=== PATIENT | male | born 1955 | race Caucasian/White ===

== ENCOUNTER 2018-10-30 09:43 | Day surgery (SDC) | payer MEDICARE, MEDICAID ==
[~2018-10-30 09:43] MED LIST: Acetaminophen TAB* 325 MG PO PRN; Buffered Lidocaine 1% SYRIN* 1 ML/SYRINGE INTRADERM ONE; Cyclopentolate 1% OPTH.SOL* 2 ML BTL ONE; Ketorolac 0.5% OPHTH (NF) 0.5 % 5 ML BTL ONE; Lidocaine 1%* 5 ML VIAL ONE; Neomycin/Polymy/Dex OPHTH.OIN* 3.5 GM ONE; Phenylephrine 2.5% OPTH.SOL* 2 ML BTL ONE; Tetracaine 0.5% OPTH.SOL 4 ML* 1 DROP BTL ONE; Tropicamide 1% OPTH.SOL* BTL ONE
[2018-10-30] MEDS ORDERED: Levalbuterol 1.25MG/0.5ML NEB INH ONE (10:34)
[2018-10-30] MEDS ORDERED: Levalbuterol 1.25MG/0.5ML NEB ONE (10:35)
[2018-10-30] MEDS ORDERED: fentaNYL* 50 MCG/ML 2 ML VIAL (100 MCG VIAL) ONE (11:06)
[2018-10-30] MEDS ORDERED: Midazolam* 1 MG/ML 2 ML VIAL (2 MG) ONE (11:06)
[2018-10-30 12:02] VITALS: BP 129/55
--- NOTE | 2018-10-30 20:14 | OP ---
DATE OF OPERATION: 10/30/18 [facility] DATE OF : 59 SURGEON: Dr. Tavo Silva. SKILLS AUDITOR: None. ANESTHESIA: Topical with intravenous sedation. PRE-OP DIAGNOSIS: Cataract, right eye. POST-OP DIAGNOSIS: Cataract, right eye. OPERATIVE PROCEDURE: Phacoemulsification and cataract extraction with posterior chamber intraocular lens implant, right eye. COMPLICATIONS: None. BLOOD LOSS: None. DESCRIPTION OF PROCEDURE: The patient was brought to the operating room and received a small amount of intravenous sedation. A drop of Tetracaine was placed in his right eye. He was prepped and draped in the usual sterile fashion for ophthalmic surgery and attention was directed to the right eye where a speculum was placed. A paracentesis was created at the 11 o'clock position and 0.1 cc of 1 percent preservative-free Lidocaine was injected into the anterior chamber followed by DisCoVisc. The eye was digitally stabilized while a 2.75 mm keratome was used to create a triplanar clear corneal incision at the 9 o'clock position. A continuous curvilinear capsulorrhexis was created with a cystotome and Utrata forceps. BSS on a cannula was used to hydrodissect the lens from the capsule. Phacoemulsification was performed in a divide-and- conquer technique to create four fragments which were removed. Residual cortical material was removed with irrigation and aspiration. DisCoVisc was used to inflate the capsular bag and an AU00T0 19.0 diopter lens was folded and inserted into the capsular bag. DisCoVisc was removed using irrigation and aspiration. BSS on a cannula was used to hydrate the corneal stroma and seal the wound. At the end of the case the pupil was round and the lens was centered. The eye was of normal pressure and the wound was water tight. The speculum was removed and topical Maxitrol ointment was placed on the surface of the eye. The eye was closed, patched and shielded and the patient was sent to the recovery room in stable condition with post operative instructions and follow-up appointment given. [id number] #: [id number] MTDD
== END 2018-10-30 12:07 | disposition home or self-care (01) ==
LOC: OREAST 09:43
PROVIDERS: ATTEND Ophthalmology
DX: H25.041 Posterior subcapsular polar age-related cataract, right eye (principal); I10 Essential (primary) hypertension; J44.9 Chronic obstructive pulmonary disease, unspecified; E11.9 Type 2 diabetes mellitus without complications; Z79.84 Long term (current) use of oral hypoglycemic drugs; Z72.0 Tobacco use; F31.9 Bipolar disorder, unspecified; Z88.0 Allergy status to penicillin; Z85.89 Personal history of malignant neoplasm of other organs and systems
CPT/HCPCS: A9270-GY; J2250; J3010; V2632

== ENCOUNTER 2018-11-06 07:20 | Day surgery (SDC) | payer MEDICARE, MEDICAID ==
[~2018-11-06 07:20] MED LIST changes: -Cyclopentolate 1% OPTH.SOL* 2 ML BTL ONE; -Ketorolac 0.5% OPHTH (NF) 0.5 % 5 ML BTL ONE; -Lidocaine 1%* 5 ML VIAL ONE; -Neomycin/Polymy/Dex OPHTH.OIN* 3.5 GM ONE; -Phenylephrine 2.5% OPTH.SOL* 2 ML BTL ONE; -Tetracaine 0.5% OPTH.SOL 4 ML* 1 DROP BTL ONE; -Tropicamide 1% OPTH.SOL* BTL ONE
[2018-11-06] MEDS ORDERED: Midazolam* 1 MG/ML 2 ML VIAL (2 MG) ONE (08:17)
[2018-11-06 09:12] VITALS: BP 160/78
--- NOTE | 2018-11-06 10:39 | OP ---
DATE OF OPERATION/DATE OF DICTATION: 11/06/2017 - [facility] DATE OF : 1955. SURGEON: Dr. Tavo Silva. COMPOSITION WEATHERBOARD APPLIER: None. ANESTHESIA: Topical with intravenous sedation. PRE-OP DIAGNOSIS: Cataract, left eye. POST-OP DIAGNOSIS: Cataract, left eye. OPERATIVE PROCEDURE: Phacoemulsification and cataract extraction with posterior chamber intraocular lens implant, left eye. COMPLICATIONS: None. BLOOD LOSS: None. DESCRIPTION OF PROCEDURE: The patient was brought to the operating room and received a small amount of intravenous sedation. A drop of Tetracaine was placed in his left eye. He was prepped and draped in the usual sterile fashion for ophthalmic surgery and attention was directed to the left eye where a speculum was placed. A paracentesis was created at the 5 o'clock position and 0.1 cc of 1 percent preservative-free Lidocaine was injected into the anterior chamber followed by DisCoVisc. The eye was digitally stabilized while a 2.75 mm keratome was used to create a triplanar clear corneal incision at the 3 o' clock position. A continuous curvilinear capsulorrhexis was created with a cystotome and Utrata forceps. BSS on a cannula was used to hydrodissect the lens from the capsule. Phacoemulsification was performed in a divide-and- conquer technique to create four fragments which were removed. Residual cortical material was removed with irrigation and aspiration. DisCoVisc was used to inflate the capsular bag and an AUOOTO 19.0 diopter lens was folded and inserted into the capsular bag. DisCoVisc was removed using irrigation and aspiration. BSS on a cannula was used to hydrate the corneal stroma and seal the wound. At the end of the case the pupil was round and the lens was centered. The eye was of normal pressure and the wound was water tight. The speculum was removed and topical Maxitrol ointment was placed on the surface of the eye. The eye was closed, patched and shielded and the patient was sent to the recovery room in stable condition with post operative instructions and follow-up appointment given. [id number] #: [id number] MTDD
[2018-11-06] MEDS ORDERED: Phenylephr/Ketorolac 1%/0.3% OPH DROP BTL ONE (15:26)
[2018-11-06] MEDS ORDERED: Ketorolac 0.5% OPHTH (NF) 0.5 % 5 ML BTL ONE (15:26)
[2018-11-06] MEDS ORDERED: Neomycin/Polymy/Dex OPHTH.OIN* 3.5 GM ONE (15:26)
[2018-11-06] MEDS ORDERED: Cyclopentolate 1% OPTH.SOL* 2 ML BTL ONE (15:26)
[2018-11-06] MEDS ORDERED: Tetracaine 0.5% OPTH.SOL 4 ML* 1 DROP BTL ONE (15:26)
[2018-11-06] MEDS ORDERED: Lidocaine 1%* 5 ML VIAL ONE (15:26)
[2018-11-06] MEDS ORDERED: Phenylephrine 2.5% OPTH.SOL* 2 ML BTL ONE (15:26)
[2018-11-06] MEDS ORDERED: Tropicamide 1% OPTH.SOL* BTL ONE (15:26)
== END 2018-11-06 09:17 | disposition home or self-care (01) ==
LOC: OREAST 07:20
PROVIDERS: ATTEND Ophthalmology
DX: H25.042 Posterior subcapsular polar age-related cataract, left eye (principal); E11.9 Type 2 diabetes mellitus without complications; Z79.84 Long term (current) use of oral hypoglycemic drugs; E78.00 Pure hypercholesterolemia, unspecified; I12.9 Hypertensive chronic kidney disease with stage 1 through stage 4 chronic kidney disease, or unspecified chronic kidney disease; F31.89 Other bipolar disorder; N18.9 Chronic kidney disease, unspecified
CPT/HCPCS: A9270-GY; C9447; J2250; V2632

== ENCOUNTER 2019-03-25 15:57 | Emergency (ER) | payer MEDICARE, MEDICAID ==
[2019-03-25 16:24] VITALS: BP 134/82
--- NOTE | 2019-03-25 16:26 | UC ---
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 Negative: Nausea, Vomiting, Numbness, Thirst, Diaphoresis, Weakness, Pallor, Shivering, Difficulty Breathing, Fever, Chills, Chest Pain, Hoarseness, Throat Tightening, Rash, Abdominal Pain, Lightheadedness, Syncope, Bruising, Red Streaks, Joint Swelling - Allergy/Home Medications Allergies/Adverse Reactions: Allergies Allergy/AdvReac Type Severity Reaction Status Date / Time nut - unspecified Allergy Severe Anaphylatic Verified 03/25/19 16:24 Shock lithium Allergy Intermediate Kidney Verified 03/25/19 16:24 Scarring Penicillins Allergy Hives Verified 03/25/19 16:24 Home Medications: Home Medications Umeclidinium [place] [Incruse Ellipta] 62.5 mcg IN DAILY 03/25/19 [History Confirmed 03/25/19] PMH/Surg Hx/FS Hx/Imm Hx Previously Healthy: Yes Respiratory History: COPD, Asthma, Bronchitis, Pneumonia Cancer History: Other Other Cancer History: SCC ;left ear - Surgical History Surgical History: Yes Surgery Procedure, Year, and Place: 02/16 - cancerous skin lesion. skin graft leg. cataracts. wisdom teeth - Family History Known Family History: Positive: Hypertension, Diabetes - Social History Alcohol Use: None Substance Use Type: None Smoking Status (MU): Heavy Every Day Tobacco Smoker Type: Cigarettes Amount Used/How Often: 1/2 - 1 ppd for 40 yrs Have You Smoked in the Last Year: Yes Review of Systems All Other Systems Reviewed And Are Negative: Yes Constitutional: Positive: Negative Skin: Positive: Negative Eyes: Positive: Negative ENT: Positive: Negative Respiratory: Positive: Cough Cardiovascular: Positive: Negative Gastrointestinal: Positive: Negative Genitourinary: Positive: Negative Motor: Positive: Negative Neurovascular: Positive: Negative Musculoskeletal: Positive: Negative Neurological: Positive: Negative Psychological: Positive: Negative Physical Exam Triage Information Reviewed: Yes Appearance: Well-Appearing, No Pain Distress, Well-Nourished Vital Signs: Initial Vital Signs Temp 97.8 F 03/25/19 16:13 Pulse 67 03/25/19 16:13 Resp 20 03/25/19 16:13 BP 134/82 03/25/19 16:13 Pulse Ox 90 03/25/19 16:13 Vital Signs Reviewed: Yes Eyes: Positive: Conjunctiva Clear ENT: Positive: Other - Left pinna almost completely absent, oozing /flakey skin surrounding ear/some crusting/post radiation changes. Negative: Hearing grossly normal, Nasal congestion, Nasal drainage, Trismus, Muffled voice, Hoarse voice Dental: Positive: Gross Decay/Caries @ Neck: Positive: Supple Respiratory: Positive: No respiratory distress, No accessory muscle use, Wheezing Cardiovascular: Positive: RRR Musculoskeletal: Positive: No Edema Neurological: Positive: Alert Skin Exam: Other - post radiation changs around left ear, see ABOVE Course/Dx - Course Course Of Treatment: Has derm appt next month concern this may be recurrance SCC - Diagnoses Provider Diagnosis: Impetigo, Bronchospasm, Smoker Discharge - Sign-Out/Discharge Documenting (check all that apply): Patient Departure All imaging exams completed and their final reports reviewed: No Studies - Discharge Plan Condition: Stable Disposition: HOME Prescriptions: Mupirocin 2% OINT* [Bactroban 2 % Oint*] 1 applic TOPICAL TID #1 tube Patient Education Materials: Bronchospasm (ED), How to Use a Metered-Dose Inhaler and a Spacer (ED) Referrals: Ramírez Callaway DO [Primary Care Provider] - 1 Week Additional Instructions: see service electrician as planned - Billing Disposition and Condition Condition: STABLE Disposition: Home
[2019-03-25] MEDS ORDERED: Albuterol HFA INHALER* 8 gm MDI INH ONE (16:38)
[2019-03-25] MEDS ORDERED: Ipratropium 0.5MG/2.5ML NEB* 0.5 MG/2.5 ML NEB.SOLN INH ONE (16:58)
[2019-03-25] MEDS ORDERED: Albuterol 2.5 MG/3 ML NEB.SOL* (0.083%) INH ONE (16:58)
--- NOTE | 2019-03-25 22:04 | UC ---
- Progress Note Progress Note: notify pt MRSA start doxy tomorrow take with food Course/Dx - Diagnoses Provider Diagnoses: Impetigo, Bronchospasm, Smoker Discharge - Sign-Out/Discharge Documenting (check all that apply): Post-Discharge Follow Up All imaging exams completed and their final reports reviewed: No Studies - Discharge Plan Condition: Stable Disposition: HOME Prescriptions: DOXYcycline CAP(*) [DOXYcycline 100MG CAP(*)] 100 mg PO BID #20 cap Mupirocin 2% OINT* [Bactroban 2 % Oint*] 1 applic TOPICAL TID #1 tube Patient Education Materials: Bronchospasm (ED), How to Use a Metered-Dose Inhaler and a Spacer (ED) Referrals: Ramírez Callaway DO [Primary Care Provider] - 1 Week Additional Instructions: see director of exhibits as planned - Billing Disposition and Condition Condition: STABLE Disposition: Home
--- NOTE | 2019-03-28 07:11 | UC ---
- Progress Note Progress Note: Culture of ear swab grew back MRSA. The mupiricin that was prescribed to you - topical ointment should treat the infection. If the infection is not improving despite using mupiricin ie drainage more redness and/or swelling and pain, recommend follow up with your PCP or return to urgent care. Course/Dx - Diagnoses Provider Diagnoses: Impetigo, Bronchospasm, Smoker Discharge - Sign-Out/Discharge Documenting (check all that apply): Post-Discharge Follow Up All imaging exams completed and their final reports reviewed: No Studies - Discharge Plan Condition: Stable Disposition: HOME Prescriptions: DOXYcycline CAP(*) [DOXYcycline 100MG CAP(*)] 100 mg PO BID #20 cap Mupirocin 2% OINT* [Bactroban 2 % Oint*] 1 applic TOPICAL TID #1 tube Patient Education Materials: Bronchospasm (ED), How to Use a Metered-Dose Inhaler and a Spacer (ED) Referrals: Ramírez Callaway DO [Primary Care Provider] - 1 Week Additional Instructions: see loom fixer apprentice as planned - Billing Disposition and Condition Condition: STABLE Disposition: Home
== END 2019-03-25 17:18 | disposition home or self-care (01) ==
LOC: UCEAST 15:57
DX: L01.00 Impetigo, unspecified (principal); J98.01 Acute bronchospasm; F17.210 Nicotine dependence, cigarettes, uncomplicated; J44.9 Chronic obstructive pulmonary disease, unspecified
CPT/HCPCS: 87070; 87205; 87640; 87641; 99213; A9270-GY; G0463

== ENCOUNTER 2019-06-03 12:59 | Inpatient (IN) | payer MEDICARE, MEDICAID ==
[2019-06-03] MEDS ORDERED: Albuterol/Ipratropium NEB.SOL* Albuterol 2.5 MG/Ipratropium 0.5 MG 3 ML INH ONE (13:09)
[2019-06-03] MEDS ORDERED: methylPREDNISolone 125 MG* 2 ML VIAL IV ONE (13:10)
--- NOTE | 2019-06-03 13:12 | ED ---
Shortness of Breath - HPI Summary HPI Summary: This pt is a 64 y/o male w hx COPD and bipolar d/o presenting to [facility] via EMS from [facility] for SOB. Pt has hx of COPD, asthma, bipolar disorder, HTN, DM. EMS reports initial SPO2 of 60% but pt did not have difficulty speaking between breaths. Per EMS pt with crackles and wheezes in upper lobes. Pt reports he has a productive cough sometimes with yellow sputum. Denies body aches or pain anywhere else. Denies CP. 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 Pt refused IV en route per EMS. POC glucose per EMS is 116 but per pt his normal is around 250s. Pt has prescribed inhalers. Pt is a heavy tobacco smoker, he notes he smokes between 1 to 2 PPD. - History of Current Complaint Hx Obtained From: Patient, EMS Onset/Duration: Lasting Hours, Still Present Current Severity: Moderate Dyspnea At: Rest Aggravating Factors: Nothing Alleviating Factors: Nothing Associated Signs & Symptoms: Cough (Productive), Wheezing - Allergy/Home Medications Allergies/Adverse Reactions: Allergies Allergy/AdvReac Type Severity Reaction Status Date / Time nut - unspecified Allergy Severe Anaphylatic Verified 06/03/19 13:19 Shock lithium Allergy Intermediate Kidney Verified 06/03/19 13:19 Scarring Penicillins Allergy Hives Verified 06/03/19 13:19 PMH/Surg Hx/FS Hx/Imm Hx Endocrine/Hematology History: Reports: Hx Diabetes - on oral medication Denies: Hx Thyroid Disease Cardiovascular History: Reports: Hx Hypertension Denies: Other Cardiovascular Problems/Disorders Respiratory History: Reports: Hx Asthma, Hx Chronic Obstructive Pulmonary Disease (COPD), Other Respiratory Problems/Disorders - Heavy smoker-1 ppd GI History: Denies: Hx Ulcer, Other GI Disorders History: Reports: Other Problems/Disorders - Frequent urination Musculoskeletal History: Denies: Other Musculoskeletal History Sensory History: Reports: Hx Cataracts - Bilateral Denies: Hx Contacts or Glasses, Hx Hearing Aid Opthamlomology History: Reports: Hx Cataracts - Bilateral Denies: Hx Contacts or Glasses Neurological History: Reports: Other Neuro Impairments/Disorders - Schizoaffective disorder Psychiatric History: Reports: Hx Anxiety, Hx Depression, Hx Bipolar Disorder - Cancer History Cancer Type, Location and Year: left ear - amputation - Surgical History Surgical History: Yes Surgery Procedure, Year, and Place: 02/16 - cancerous skin lesion. skin graft leg. cataracts. wisdom teeth Hx Anesthesia Reactions: No Infectious Disease History: Denies: Hx Hepatitis, Hx Human Immunodeficiency Virus (HIV) - Family History Known Family History: Positive: Hypertension, Diabetes - Social History Alcohol Use: None Substance Use Type: Reports: None Smoking Status (MU): Heavy Every Day Tobacco Smoker Type: Cigarettes Amount Used/How Often: 1/2 - 1 ppd for 40 yrs Have You Smoked in the Last Year: Yes Review of Systems Negative: Fever, Chills Positive: Shortness Of Breath, Cough Negative: Myalgia All Other Systems Reviewed And Are Negative: Yes Physical Exam - Summary Physical Exam Summary: Constitutional: Well-developed, Well-nourished, Alert. (-) Distressed Skin: Warm, Dry HENT: Normocephalic; Atraumatic. Posttraumatic deformity of the left auricle. Eyes: Conjunctiva normal Neck: Musculoskeletal ROM normal neck. (-) JVD, (-) Stridor Cardio: Rhythm regular, rate normal, Heart sounds normal; Intact distal pulses; Radial pulses are 2+ and symmetric. (-) Murmur Pulmonary/Chest wall: Increased work of breathing. Bilateral diffuse expiratory wheezing. Decreased air movement bilaterally. Abd: Soft, (-) tenderness, (-) Distension, (-) Guarding, (-) Rebound Musculoskeletal: (-) Edema Lymph: (-) Cervical adenopathy Neuro: Alert, Oriented x3 Psych: Mood and affect Normal Triage Information Reviewed: Yes Vital Signs Reviewed: Yes Diagnostics - Laboratory Result Diagrams: 06/03/19 13:20 06/03/19 13:12 Lab Statement: Any lab studies that have been ordered have been reviewed, and results considered in the medical decision making process. - Radiology Chest XR Radiology Interpretation Completed By: Radiologist Summary of Radiographic Findings: IMPRESSION: Interstitial infiltrates bilaterally worse on the right than on the left. This was noted on prior exam of April 16, 2019. Chronic pleural changes in the right hemithorax is noted. Increased right basilar density is noted. Dr. Guerrero has reviewed this report. - EKG 13:17 Cardiac Rate: NL - at 80 bpm EKG Rhythm: Sinus Rhythm EKG Comparison: Other - no prior for comparison Summary of EKG Findings: T wave inversion in aVL. Re-Evaluation - Re-Evaluation First Eval Comment: Patient accidentally dislodged IV. Patient does not want second IV placed, will give PO steroids Course/Dx - Course Course Of Treatment: 64-year-old male with a history of COPD presents with shortness of breath and cough. Shortness of breath ddx: Most likely COPD vs PNA. Also consider: COPD exacerbation/asthma - suspect COPD exacerbation, will give steroids, neb, reassess. PNA - inc sputum, leukocytosis, inc RLL infiltrate. treat w azithro and ceftriaxone. PTX - breath sounds equal, no risk factors for PTX, CXR w/o e/o PTX. ACS - no CP, no EKG changes. Trop elevated likely 2/2 hypoxia Low suspicion. CHF - no h/o CHF, no GOODMAN or orthopnea, no BLE edema, CXR w/o pulmonary edema. PE - no risk factors for PE, no unilateral leg swelling - Diagnoses Provider Diagnoses: COPD exacerbation, Pneumonia - Physician Notifications Discussed Care of Patient With: Sara Hanks - hospitalist Time Discussed With Above Provider: 14:23 Instructed by Provider To: Admit As Inpatient Discharge ED - Sign-Out/Discharge Documenting (check all that apply): Patient Departure - Admit to [facility] Patient Received Moderate/Deep Sedation with Procedure: No - Discharge Plan Condition: Stable Disposition: ADMITTED TO [facility] Referrals: Ramírez Callaway DO [Primary Care Provider] - - Billing Disposition and Condition Condition: STABLE Disposition: Admitted to [facility] - Attestation Statements Document Initiated by Emmanuel: Yes Documenting Scribe: Shawna To Provider For Whom Scribe is Documenting (Include Credential): Andres Guerrero MD Scribe Attestation: Shawna Gerardo, scribed for Andres Guerrero MD on 06/03/19 at 1522. Scribe Documentation Reviewed: Yes Provider Attestation: The documentation as recorded by the Shawna ortega accurately reflects the service I personally performed and the decisions made by , Andres Guerrero MD Status of Scribe Document: Viewed
[2019-06-03 13:27] LABS: Hematocrit 34 % (42-52); Hemoglobin 11.3 g/dL (14.0-18.0); Mean Corpuscular HGB Conc 33 g/dL (31-36); Mean Corpuscular Hemoglobin 32 pg (27-31); Mean Corpuscular Volume 97 fL (80-94); Mean Platelet Volume 7.4 fL (7.4-10.4); Platelet Count 261 10^3/uL (150-450); Red Cell Distribution Width 16 % (10-15); White Blood Count 15.7 10^3/uL (3.5-10.8)
[2019-06-03] MEDS ORDERED: predniSONE TAB* 50 MG PO ONE (13:39)
[2019-06-03 13:44] LABS: ALT 14 U/L (7-52); AST 20 U/L (13-39); Albumin 2.7 g/dL (3.2-5.2); Albumin/Globulin Ratio 0.7 (1-3); Alkaline Phosphatase 24 U/L (34-104); Anion Gap 3 mmol/L (2-11); BUN/Creatinine Ratio 23.1 (8-20); Blood Urea Nitrogen 27 mg/dL (6-24); CO2 Carbon Dioxide 32 mmol/L (22-32); Calcium 8.9 mg/dL (8.6-10.3); Chloride 98 mmol/L (101-111); EGFR African American 76.4 (>60); EGFR Non-African American 63.2 (>60); Glucose 94 mg/dL (70-100); Potassium 4.7 mmol/L (3.5-5.0); Sodium 133 mmol/L (135-145); Total Protein 6.7 g/dL (6.4-8.9)
[2019-06-03 13:54] LABS: Troponin I 0.14 ng/mL (<0.04)
[2019-06-03 13:56] LABS: ABS Basophils 0.1 10^3/ul (0-0.2); ABS Neutrophils 12.7 10^3/ul (1.5-7.7); Lymphocyte % 6.1 %
[2019-06-03] MEDS ORDERED: Azithromycin 500 mg/250 ml NS 500 MG/250 ML BAG IVPB ONE (14:11)
[2019-06-03] MEDS ORDERED: cefTRIAXone(*) 1 GM in NS 0.9% 50 ML* 50 ML IVPB ONE (14:11)
[2019-06-03 16:42] LABS: Troponin I 0.12 ng/mL (<0.04)
[2019-06-03] MEDS ORDERED: Albuterol/Ipratropium NEB.SOL* Albuterol 2.5 MG/Ipratropium 0.5 MG 3 ML INH PRN (17:15)
[2019-06-03] MEDS ORDERED: Piperacillin/Tazobac ADVAN(*) 3.375 GM in NS 0.9% 100 ML* 100 ML IVPB ONE (17:30)
--- NOTE | 2019-06-03 17:59 | HP ---
H&P (Free Text) History and Physical: Pt seen, examined and discussed with Dr. Varela. I agree with the assessment and plan as outlined in her note from today unless indicated here. 64 yo M h/o IDDM, bipolar 1 pw several days worsening dyspnea with increased albuterol INH use and fevers found with reported profound hypoxia by EMS (SpO2 60s). History is notable for long standing suspected aspiration and increased lethargy over the days preceding admission. Hypoxic respiratory failure - concern for PNA given aspiration events, leukocytosis and reported fevers. CXR without clear PNA but abnormal and changed since CT performed in April supporting PNA. Concomitant COPD exacerbation suspected based on lung exam (prolonged expiratory phase, diffus ronchi). -Treat for aspiration PNA with zosyn -Continue azithromycin for possible atypical PNA -Prednisone 40 mg PO daily -albuterol nebulizers PRN q4hrs -Dulera BID -ABG with CO2 retention,suspect partly chronic in setting of intermediate teacher smoking history -Repeat ABG in 3 hours to assess for CO2 stability Leukocytosis - suspected in setting of PNA. No evidence of sepsis but lactic acid pending. Lactate <1. Antibiotics as above. Elevate troponin - in the absence of chest pain or ischemic changes but vascular risk factors -ASA 324 mg now -trend troponins and EKGs -admit to telemetry IDDM - c/w metformin and sliding scale insulin. Add back long acting if needed tomorrow. FSG qachs Bioplar disorder - cw haldol DVT ppx
[2019-06-03] MEDS ORDERED: Zosyn per Pharmacy* NOTE FOLLOW UP SCH (18:00)
[2019-06-03] MEDS ORDERED: Aspirin TAB* 325 MG PO ONE (18:01)
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
[2019-06-03] MEDS: Mometasone/Formoter 200/5 MDI INH SCH (20:58)
[2019-06-03] MEDS ORDERED: Insulin GLARGINE(*) 1 UNITS UNIT SUBCUT SCH (21:00)
[2019-06-03] MEDS: Enoxaparin(*) 40 MG/0.4 ML SYR SUBCUT SCH (22:27)
[2019-06-03] MEDS: Mupirocin 2% OINT* TUBE TOPICAL SCH (22:28)
[2019-06-03] MEDS: Insulin GLARGINE(*) 1 UNITS UNIT SUBCUT SCH (22:28)
[2019-06-03] MEDS: Haloperidol TAB* 10 MG PO SCH (22:50)
[2019-06-03] MEDS: Atorvastatin* 40 MG TAB PO SCH (22:50)
[2019-06-03] MEDS: Divalproex DR TAB(*) 500 MG PO SCH (22:50)
[2019-06-03] MEDS: metFORMIN* 1,000 MG TAB PO SCH (22:51)
[2019-06-04 01:21] LABS: Troponin I 0.06 ng/mL (<0.04)
[2019-06-04] MEDS: ZOSYN 3.375 GM Q8H per EXTENDED INFUSION IVPB SCH ×6 (03:28→20:40)
[2019-06-04] MEDS ORDERED: NS 0.9% 500 ML* 500 ML IV ONE (05:44)
[2019-06-04] MEDS ORDERED: Dextrose 50% VIAL 50 ml IV PUSH PRN (07:01)
[2019-06-04] MEDS: NS 0.9% 1000 ML** 2,000 ML IV ONE ×2 (07:05→10:17)
[2019-06-04 07:16] LABS: ABS Lymphocytes 1.5 10^3/ul (1.0-4.8); ABS Monocytes 0.7 10^3/ul (0-0.8); ABS Neutrophils 10.1 10^3/ul (1.5-7.7); Hematocrit 34 % (42-52); Lymphocyte % 11.9 %; Mean Corpuscular HGB Conc 33 g/dL (31-36); Mean Corpuscular Hemoglobin 32 pg (27-31); Mean Corpuscular Volume 98 fL (80-94); Mean Platelet Volume 8.1 fL (7.4-10.4); Platelet Count 230 10^3/uL (150-450); Red Blood Count 3.42 10^6 /uL (4.18-5.48); Red Cell Distribution Width 16 % (10-15); White Blood Count 12.3 10^3/uL (3.5-10.8)
[2019-06-04 07:31] LABS: Albumin 2.5 g/dL (3.2-5.2); Albumin/Globulin Ratio 0.6 (1-3); BUN/Creatinine Ratio 28.9 (8-20); Calcium 8.8 mg/dL (8.6-10.3); EGFR African American 64.8 (>60); EGFR Non-African American 53.6 (>60); Potassium 4.9 mmol/L (3.5-5.0); Total Bilirubin 0.2 mg/dL (0.2-1.0); Total Protein 6.5 g/dL (6.4-8.9)
[2019-06-04] MEDS ORDERED: Divalproex DR TAB(*) 500 MG PO SCH (09:00)
[2019-06-04] MEDS: Mometasone/Formoter 200/5 MDI INH SCH ×2 (09:19→20:04)
[2019-06-04] MEDS: SPIRIVA Respimat* (tiotropium) 2.5 mcg/inh Inhaler INH SCH (09:19)
[2019-06-04] MEDS: Insulin LISPRO* 1 UNITS UNIT SUBCUT SCH ×4 (10:09→21:27)
[2019-06-04] MEDS: Insulin GLARGINE(*) 1 UNITS UNIT SUBCUT SCH ×2 (10:21→20:38)
[2019-06-04] MEDS: metFORMIN* 1,000 MG TAB PO SCH ×2 (10:22→21:15)
[2019-06-04] MEDS: predniSONE TAB* 20 MG PO SCH ×2 (10:23→10:25)
[2019-06-04] MEDS: Escitalopram * 10 MG TAB PO SCH (10:23)
[2019-06-04] MEDS: Mupirocin 2% OINT* TUBE TOPICAL SCH ×4 (10:23→21:31)
[2019-06-04] MEDS: methylPREDNISolone SOD 40 MG* 1 ML VIAL IV SCH (11:31)
[2019-06-04] MEDS: Albuterol/Ipratropium NEB.SOL* Albuterol 2.5 MG/Ipratropium 0.5 MG 3 ML INH SCH ×4 (11:42→23:28)
--- NOTE | 2019-06-04 17:37 | PN ---
Subjective Date of Service: 06/04/19 Interval History: Patient was agitated this morning, and shouted at multiple staffs, threw racism comments toward one staff. He was still agitated about not giving him normal diet when I saw him. Dr. Chambers and I explained to him the rational of food modification and further plan of swallowing assessment, he was still upset but agreed to the plan in the end. He still had productive cough observed this morning, less lethargic, SOB status quo. Objective Active Medications: Albuterol/Ipratropium (Duoneb (Albuterol 2.5 Mg/Ipratropium 0.5 Mg)) 1 neb INH Q4H [facility] Stop: 06/06/19 11:00 Last Admin: 06/04/19 15:22 Dose: 1 neb Atorvastatin Calcium (Lipitor*) 40 mg PO BEDTIME [facility] Last Admin: 06/03/19 22:50 Dose: 40 mg Dextrose (Dextrose 50% Vial 50 Ml*) 25 ml IV PUSH .FOR FS < 60 - SS PRN PRN Reason: FS < 60 Divalproex Sodium (Depakote Dr Tab(*)) 500 mg PO QAM [facility] Last Admin: 06/04/19 10:23 Dose: 500 mg Divalproex Sodium (Depakote Dr Tab(*)) 1,000 mg PO BEDTIME [facility] Last Admin: 06/03/19 22:50 Dose: 500 mg Enoxaparin Sodium (Lovenox(*)) 40 mg SUBCUT Q24H [facility] Last Admin: 06/03/19 22:27 Dose: 40 mg Escitalopram Oxalate (Lexapro *) 10 mg PO QAM [facility] Last Admin: 06/04/19 10:23 Dose: 10 mg Haloperidol (Haldol Tab*) 10 mg PO BEDTIME [facility] Last Admin: 06/03/19 22:50 Dose: 10 mg Azithromycin (Zithromax 500 Mg/250 Ml) 500 mg in 250 mls @ 250 mls/hr IVPB Q24H [facility] Stop: 06/07/19 19:29 Piperacillin Sod/Tazobactam (Sod 3.375 gm/ Sodium Chloride) 100 mls @ 25 mls/ hr IVPB Q8H [facility] Last Admin: 06/04/19 11:31 Dose: 25 mls/hr Insulin Glargine (Lantus(*)) 5 units SUBCUT 1900 [facility] Last Admin: 06/03/19 22:28 Dose: 5 units Insulin Glargine (Lantus(*)) 7 units SUBCUT 0700 [facility] Last Admin: 06/04/19 10:21 Dose: Not Given Insulin Human Lispro (Humalog*) 0 units SUBCUT ACHS [facility]; Protocol Last Admin: 06/04/19 12:48 Dose: Not Given Metformin HCl (Glucophage*) 1,000 mg PO BID [facility] Last Admin: 06/04/19 10:22 Dose: 1,000 mg Methylprednisolone Sodium Succinate (Solu-Medrol 40 Mg) 40 mg IV DAILY [facility] Last Admin: 06/04/19 11:31 Dose: 40 mg Mometasone Furoate/Formoterol Fumar (Dulera 200/5 Mdi*) 2 puff INH BID [facility] Last Admin: 06/04/19 09:19 Dose: 2 puff Mupirocin (Bactroban 2 % Oint*) 1 applic TOPICAL TID [facility] Last Admin: 06/04/19 10:26 Dose: Not Given Pharmacy Consult (Zosyn Per Pharmacy*) 1 note FOLLOW UP .ZOSYN PER PHARMACY [facility] Tiotropium [place] (Spiriva Respimat 2.5 Mcg) 2 puff INH DAILY [facility] Last Admin: 06/04/19 09:19 Dose: 2 puff Vital Signs - 8 hr 06/04/19 06/04/19 06/04/19 11:43 12:18 12:25 Temperature 98.2 F Pulse Rate 60 56 Respiratory 20 20 Rate Blood Pressure 125/64 (mmHg) O2 Sat by Pulse 96 83 95 Oximetry 06/04/19 15:25 Temperature Pulse Rate 61 Respiratory 20 Rate Blood Pressure (mmHg) O2 Sat by Pulse 96 Oximetry Oxygen Devices in Use Now: None Exam: General - Not in distress, speaks in full sentences Eyes - PERRLA, EOM intact Cardiovascular - RRR no m/r/g, no JVD, no carotid bruits Lungs - wheezes improved from yesterday, bibasal crackles heard Skin - No rashes, skin warm and dry, no erythematous areas Abdomen - Normal bowel sounds, abdomen soft and nontender Extremeties - No edema, cyanosis or clubbing Musculo Skeletal - 5/5 strength, normal range of motion, no swollen or erythematous joints. Neurological Alert and oriented x 3, CN 2-12 grossly intact. Psychiatry-Agitated Result Diagrams: 06/04/19 06:58 06/04/19 06:58 Assess/Plan/Problems-Billing Assessment: crissy Malhotra is a 64 y/o male with history of asthma and COPD not well controlled, T2DM, HTN, bipolar and schizoaffective disorder, presented with worsening dyspnea and lethargy, with frequent episodes of choking in eating. He was found to have T2RF due to asthma/COPD exacerbation and underlying aspiration pneumonia. - Patient Problems (1) Asthma with COPD with exacerbation Current Visit: Yes Status: Acute Code(s): J44.1 - CHRONIC OBSTRUCTIVE PULMONARY DISEASE W (ACUTE) EXACERBATION; J45.901 - UNSPECIFIED ASTHMA WITH ( ACUTE) EXACERBATION SNOMED Code(s): 1524415895196 Comment: - Asthma/COPD not well controlled with active smoking, excessive use of nebulizer - presented as T2RF - change to iv methylpred 40mg as swallowing dysfunction. - Albuterol neb Q4h scheduled for now, continue LABA/ICS (2) Pneumonia Current Visit: Yes Status: Acute Code(s): J18.9 - PNEUMONIA, UNSPECIFIED ORGANISM SNOMED Code(s): 040221051 Comment: - aspirational pneumonia likely in view of his swallowing dysfunction and lower zone distribution - iv zosyn and azithromycin D2 today - dysphagia assessment by speech therapy today (3) Diabetes Current Visit: Yes Status: Acute Code(s): E11.9 - TYPE 2 DIABETES MELLITUS WITHOUT COMPLICATIONS SNOMED Code(s): 63441323 Comment: - continue metformin and lantus - put on sliding scale - hbA1c 7.3% (4) DVT prophylaxis Current Visit: Yes Status: Acute Code(s): Z29.9 - ENCOUNTER FOR PROPHYLACTIC MEASURES, UNSPECIFIED SNOMED Code(s): 898948322 Comment: SQ Lovenox Status and Disposition: Inpatient Medicine Attestation Documenting Resident: Damaris Varela Supervising Physician: Gary Chambers Attending/Supervising Physician Comment: ROSALINDA today. Increased fluid today c/w abx for suspected aspiration PNA steroids for COPD/Asthma Swallowing eval today - pureed food with honey thick Attestation: This service has been performed in part by a resident under the direction of a teaching physician.I, Gary Chambers, performed the service, or was physically present during the critical, or lamas portions of the service, furnished by the resident. I participated in the management of the patient.
[2019-06-04] MEDS: Enoxaparin(*) 40 MG/0.4 ML SYR SUBCUT SCH (18:17)
[2019-06-04] MEDS: Azithromycin 500 mg/250 ml NS 500 MG/250 ML BAG IVPB SCH (19:36)
[2019-06-04] MEDS: Haloperidol TAB* 10 MG PO SCH (21:12)
[2019-06-04] MEDS: Atorvastatin* 40 MG TAB PO SCH (21:14)
[2019-06-04] MEDS: Divalproex DR TAB(*) 500 MG PO SCH ×2 (21:15→22:24)
[2019-06-04] MEDS: Divalproex DR TAB(*) 250 MG PO SCH (21:46)
[2019-06-05] MEDS: ZOSYN 3.375 GM Q8H per EXTENDED INFUSION IVPB SCH ×6 (02:57→19:31)
[2019-06-05] MEDS: Albuterol/Ipratropium NEB.SOL* Albuterol 2.5 MG/Ipratropium 0.5 MG 3 ML INH SCH ×4 (03:13→19:49)
[2019-06-05 06:44] LABS: Hematocrit 32 % (42-52); Hemoglobin 10.4 g/dL (14.0-18.0); Mean Corpuscular HGB Conc 33 g/dL (31-36); Mean Corpuscular Hemoglobin 33 pg (27-31); Mean Corpuscular Volume 99 fL (80-94); Platelet Count 205 10^3/uL (150-450); Red Blood Count 3.17 10^6 /uL (4.18-5.48); Red Cell Distribution Width 16 % (10-15); White Blood Count 9.2 10^3/uL (3.5-10.8)
[2019-06-05 07:09] LABS: ABS Lymphocytes 1.5 10^3/ul (1.0-4.8); ABS Monocytes 0.7 10^3/ul (0-0.8); Lymphocyte % 16.2 %
[2019-06-05 07:15] LABS: BUN/Creatinine Ratio 26.4 (8-20); Calcium 8.3 mg/dL (8.6-10.3); EGFR African American 82.1 (>60); EGFR Non-African American 67.8 (>60); Potassium 4.4 mmol/L (3.5-5.0)
[2019-06-05] MEDS: SPIRIVA Respimat* (tiotropium) 2.5 mcg/inh Inhaler INH SCH (08:11)
[2019-06-05] MEDS: Mometasone/Formoter 200/5 MDI INH SCH ×2 (08:12→19:49)
[2019-06-05] MEDS: methylPREDNISolone SOD 40 MG* 1 ML VIAL IV SCH ×2 (09:11→21:13)
[2019-06-05] MEDS: Insulin LISPRO* 1 UNITS UNIT SUBCUT SCH ×4 (09:16→21:24)
[2019-06-05] MEDS: Insulin GLARGINE(*) 1 UNITS UNIT SUBCUT SCH ×2 (09:17→21:25)
[2019-06-05] MEDS: metFORMIN* 1,000 MG TAB PO SCH ×2 (09:19→21:17)
[2019-06-05] MEDS: Escitalopram * 10 MG TAB PO SCH (09:19)
[2019-06-05] MEDS: Divalproex DR TAB(*) 250 MG PO SCH ×2 (09:20→21:16)
[2019-06-05] MEDS: Mupirocin 2% OINT* TUBE TOPICAL SCH ×3 (09:21→21:55)
--- NOTE | 2019-06-05 14:36 | PN ---
Subjective Date of Service: 06/05/19 Interval History: Patient was agitated about the thickened food we provided him this morning. He was satisfied with sandwiches he got yesterday (not sure where he obtained it) but he knew he choked when eating it. Repeated risks of aspiration with normal consistency food, he couldn't fully understand the risks and repeat them back to me. Overnight, o2 requirement came down to 2L/min. Still had productive cough, wheezing. Objective Active Medications: Albuterol/Ipratropium (Duoneb (Albuterol 2.5 Mg/Ipratropium 0.5 Mg)) 1 neb INH RT.[id number] AWAKE [facility] Stop: 06/06/19 11:00 Last Admin: 06/05/19 13:11 Dose: Not Given Atorvastatin Calcium (Lipitor*) 40 mg PO BEDTIME [facility] Last Admin: 06/04/19 21:14 Dose: 40 mg Dextrose (Dextrose 50% Vial 50 Ml*) 25 ml IV PUSH .FOR FS < 60 - SS PRN PRN Reason: FS < 60 Divalproex Sodium (Depakote Dr Tab(*)) 500 mg PO QAM [facility] Last Admin: 06/05/19 09:20 Dose: 500 mg Divalproex Sodium (Depakote Dr Tab(*)) 1,000 mg PO BEDTIME [facility] Last Admin: 06/04/19 21:46 Dose: 1,000 mg Enoxaparin Sodium (Lovenox(*)) 40 mg SUBCUT Q24H [facility] Last Admin: 06/04/19 18:17 Dose: 40 mg Escitalopram Oxalate (Lexapro *) 10 mg PO QAM [facility] Last Admin: 06/05/19 09:19 Dose: 10 mg Haloperidol (Haldol Tab*) 10 mg PO BEDTIME [facility] Last Admin: 06/04/19 21:12 Dose: 10 mg Azithromycin (Zithromax 500 Mg/250 Ml) 500 mg in 250 mls @ 250 mls/hr IVPB Q24H [facility] Stop: 06/07/19 19:29 Last Admin: 06/04/19 19:36 Dose: 250 mls/hr Piperacillin Sod/Tazobactam (Sod 3.375 gm/ Sodium Chloride) 100 mls @ 25 mls/ hr IVPB Q8H [facility] Last Admin: 06/05/19 11:47 Dose: 25 mls/hr Insulin Glargine (Lantus(*)) 5 units SUBCUT 1900 [facility] Last Admin: 06/04/19 20:38 Dose: Not Given Insulin Glargine (Lantus(*)) 7 units SUBCUT 0700 [facility] Last Admin: 06/05/19 09:17 Dose: 7 units Insulin Human Lispro (Humalog*) 0 units SUBCUT ACHS [facility]; Protocol Last Admin: 06/05/19 13:32 Dose: 2 unit Metformin HCl (Glucophage*) 1,000 mg PO BID [facility] Last Admin: 06/05/19 09:19 Dose: 1,000 mg Methylprednisolone Sodium Succinate (Solu-Medrol 40 Mg) 40 mg IV BID [facility] Mometasone Furoate/Formoterol Fumar (Dulera 200/5 Mdi*) 2 puff INH BID [facility] Last Admin: 06/05/19 08:12 Dose: 2 puff Mupirocin (Bactroban 2 % Oint*) 1 applic TOPICAL TID [facility] Last Admin: 06/05/19 09:21 Dose: 1 applic Pharmacy Consult (Zosyn Per Pharmacy*) 1 note FOLLOW UP .ZOSYN PER PHARMACY [facility] Tiotropium [place] (Spiriva Respimat 2.5 Mcg) 2 puff INH DAILY [facility] Last Admin: 06/05/19 08:11 Dose: 2 puff Vital Signs - 8 hr 06/05/19 06/05/19 06/05/19 07:15 08:00 08:13 Temperature 97.9 F Pulse Rate 63 60 Respiratory 16 16 18 Rate Blood Pressure 139/63 (mmHg) O2 Sat by Pulse 88 92 Oximetry 06/05/19 06/05/19 11:15 13:41 Temperature 97.6 F Pulse Rate 59 Respiratory 20 Rate Blood Pressure 182/80 168/68 (mmHg) O2 Sat by Pulse 92 Oximetry Oxygen Devices in Use Now: Nasal Cannula Exam: General - NAD, sitting up in bed, eating breakfast without oxygen Eyes - PERRLA, EOM intact. HEENT- no abnormality. Cardiovascular - RRR no m/r/g, no JVD, no carotid bruits Lungs - widespread wheezes heard, not improving from yesterday Skin - No rashes, skin warm and dry, no erythematous areas Abdomen - Normal bowel sounds, abdomen soft and nontender Extremeties - No edema, cyanosis or clubbing Musculo Skeletal - 5/5 strength, normal range of motion, no swollen or erythematous joints. Neurological Alert and oriented x 3, CN 2-12 grossly intact. Psychiatry- Agitated mood Result Diagrams: 06/05/19 06:31 06/05/19 06:31 Assess/Plan/Problems-Billing Assessment: crissy Malhotra is a 64 y/o male with history of asthma and COPD not well controlled, T2DM, HTN, bipolar and schizoaffective disorder, presented with worsening dyspnea and lethargy, with frequent episodes of choking in eating. He was found to have T2RF due to asthma/COPD exacerbation and underlying aspiration pneumonia. - Patient Problems (1) Asthma with COPD with exacerbation Current Visit: Yes Status: Acute Code(s): J44.1 - CHRONIC OBSTRUCTIVE PULMONARY DISEASE W (ACUTE) EXACERBATION; J45.901 - UNSPECIFIED ASTHMA WITH ( ACUTE) EXACERBATION SNOMED Code(s): 6227311774385 Comment: - Asthma/COPD not well controlled with active smoking, excessive use of nebulizer - presented as T2RF - increase iv methylpred to 40mg bid - Albuterol neb Q4h scheduled, continue LABA/ICS (2) Pneumonia Current Visit: Yes Status: Acute Code(s): J18.9 - PNEUMONIA, UNSPECIFIED ORGANISM SNOMED Code(s): 448586226 Comment: - aspirational pneumonia likely in view of his swallowing dysfunction and lower zone distribution - iv zosyn and azithromycin D2 today - dysphagia assessment by speech therapy today (3) Diabetes Current Visit: Yes Status: Acute Code(s): E11.9 - TYPE 2 DIABETES MELLITUS WITHOUT COMPLICATIONS SNOMED Code(s): 75551725 Comment: - continue metformin and lantus - put on sliding scale - hbA1c 7.3% (4) DVT prophylaxis Current Visit: Yes Status: Acute Code(s): Z29.9 - ENCOUNTER FOR PROPHYLACTIC MEASURES, UNSPECIFIED SNOMED Code(s): 606500374 Comment: SQ Lovenox Status and Disposition: Inpatient Medicine Attestation Documenting Resident: Damaris Varela Supervising Physician: Gary Chambers Attending/Supervising Physician Comment: Agree with plan as outlined in Dr. Varela's note Increase IV steroids for unlying lung inflammation c/w abx for suspected aspiration PNA Pureed diet with honey thickened liquids Attestation: This service has been performed in part by a resident under the direction of a teaching physician.I, Gary Chambers, performed the service, or was physically present during the critical, or lamas portions of the service, furnished by the resident. I participated in the management of the patient.
[2019-06-05] MEDS: Lisinopril TAB* 10 MG PO SCH (17:26)
[2019-06-05] MEDS: Enoxaparin(*) 40 MG/0.4 ML SYR SUBCUT SCH (17:26)
[2019-06-05] MEDS: Haloperidol TAB* 10 MG PO SCH (21:14)
[2019-06-05] MEDS: Atorvastatin* 40 MG TAB PO SCH (21:17)
[2019-06-06] MEDS ORDERED: Azithromycin 500 mg/250 ml NS 500 MG/250 ML BAG IVPB SCH
[2019-06-06] MEDS ORDERED: hydrALAZINE IV* 20 MG/ML VIAL IV SLOW PU PRN (00:18)
[2019-06-06] MEDS ORDERED: hydrALAZINE IV* 20 MG/ML VIAL ONE (00:25)
[2019-06-06] MEDS: Albuterol/Ipratropium NEB.SOL* Albuterol 2.5 MG/Ipratropium 0.5 MG 3 ML INH SCH ×2 (01:23→07:26)
[2019-06-06] MEDS: ZOSYN 3.375 GM Q8H per EXTENDED INFUSION IVPB SCH ×4 (03:21→11:30)
[2019-06-06] MEDS: Azithromycin 500 mg/250 ml NS 500 MG/250 ML BAG IVPB SCH (03:43)
[2019-06-06] MEDS: Mometasone/Formoter 200/5 MDI INH SCH ×2 (07:27→20:10)
[2019-06-06] MEDS: SPIRIVA Respimat* (tiotropium) 2.5 mcg/inh Inhaler INH SCH (07:27)
[2019-06-06] MEDS: Insulin LISPRO* 1 UNITS UNIT SUBCUT SCH ×5 (09:01→19:45)
[2019-06-06] MEDS: Insulin GLARGINE(*) 1 UNITS UNIT SUBCUT SCH ×2 (09:02→19:44)
[2019-06-06] MEDS: methylPREDNISolone SOD 40 MG* 1 ML VIAL IV SCH (09:05)
[2019-06-06] MEDS: metFORMIN* 1,000 MG TAB PO SCH ×2 (10:44→21:04)
[2019-06-06] MEDS: Divalproex DR TAB(*) 250 MG PO SCH ×2 (10:44→20:58)
[2019-06-06] MEDS: Lisinopril TAB* 10 MG PO SCH (10:44)
[2019-06-06] MEDS: Escitalopram * 10 MG TAB PO SCH (10:44)
[2019-06-06] MEDS: Mupirocin 2% OINT* TUBE TOPICAL SCH ×3 (10:51→20:50)
[2019-06-06] MEDS: hydrALAZINE IV* 20 MG/ML VIAL IV SLOW PU PRN ×2 (16:55→20:57)
[2019-06-06] MEDS: Albuterol HFA INHALER* 8 gm MDI INH PRN (17:08)
--- NOTE | 2019-06-06 17:51 | PN ---
Subjective Date of Service: 06/06/19 Interval History: Patient didn't require InO2 overnight. However on walking test today, his saturation drop to 82-85%. Patient verbalized that his breathing was fine without oxygen. He complained about the thickened fluid he received and claimed that it induced her wheeze, though we observed that he choked less with thickened fluid. He repeatedly requested puffer instead of nebulizer as he was more used to puffer. Objective Active Medications: Albuterol (Ventolin Hfa Inhaler*) 2 puff INH Q4H PRN PRN Reason: SOB/WHEEZING Last Admin: 06/06/19 17:08 Dose: 2 puff Atorvastatin Calcium (Lipitor*) 40 mg PO BEDTIME [facility] Last Admin: 06/05/19 21:17 Dose: 40 mg Azithromycin (Zithromax Tab*) 500 mg PO DAILY [facility] Stop: 06/10/19 08:59 Dextrose (Dextrose 50% Vial 50 Ml*) 25 ml IV PUSH .FOR FS < 60 - SS PRN PRN Reason: FS < 60 Divalproex Sodium (Depakote Dr Tab(*)) 500 mg PO QAM [facility] Last Admin: 06/06/19 10:44 Dose: 500 mg Divalproex Sodium (Depakote Dr Tab(*)) 1,000 mg PO BEDTIME [facility] Last Admin: 06/05/19 21:16 Dose: 1,000 mg Enoxaparin Sodium (Lovenox(*)) 40 mg SUBCUT Q24H [facility] Last Admin: 06/05/19 17:26 Dose: 40 mg Escitalopram Oxalate (Lexapro *) 10 mg PO QAM [facility] Last Admin: 06/06/19 10:44 Dose: 10 mg Haloperidol (Haldol Tab*) 10 mg PO BEDTIME [facility] Hydralazine HCl (Apresoline Iv*) 5 mg IV SLOW PU Q6H PRN PRN Reason: SBP > 180 Last Admin: 06/06/19 16:55 Dose: 5 mg Piperacillin Sod/Tazobactam (Sod 3.375 gm/ Sodium Chloride) 100 mls @ 25 mls/ hr IVPB Q8H [facility] Insulin Glargine (Lantus(*)) 5 units SUBCUT 1900 [facility] Last Admin: 06/05/19 21:25 Dose: 5 units Insulin Glargine (Lantus(*)) 7 units SUBCUT 0700 [facility] Last Admin: 06/06/19 09:02 Dose: 7 units Insulin Human Lispro (Humalog*) 2 units SUBCUT ACHS [facility]; Protocol Lisinopril (Prinivil Tab*) 20 mg PO DAILY [facility] Last Admin: 06/06/19 10:44 Dose: 20 mg Metformin HCl (Glucophage*) 1,000 mg PO BID [facility] Last Admin: 06/06/19 10:44 Dose: 1,000 mg Mometasone Furoate/Formoterol Fumar (Dulera 200/5 Mdi*) 2 puff INH BID [facility] Last Admin: 06/06/19 07:27 Dose: 2 puff Mupirocin (Bactroban 2 % Oint*) 1 applic TOPICAL TID [facility] Last Admin: 06/06/19 16:14 Dose: 1 applic Prednisone (Deltasone Tab*) 40 mg PO BID [facility] Tiotropium [place] (Spiriva Respimat 2.5 Mcg) 2 puff INH DAILY [facility] Last Admin: 06/06/19 07:27 Dose: 2 puff Vital Signs - 8 hr 06/06/19 11:15 Temperature 97.2 F Pulse Rate 91 Respiratory 20 Rate Blood Pressure 175/55 (mmHg) O2 Sat by Pulse 91 Oximetry Oxygen Devices in Use Now: None Exam: General - NAD, sitting up in bed, eating breakfast without oxygen Eyes - PERRLA, EOM intact. HEENT- no abnormality. Cardiovascular - RRR no m/r/g, no JVD, no carotid bruits Lungs - wheezes improved from yesterday, no crackles heard Skin - No rashes, skin warm and dry, no erythematous areas Abdomen - Normal bowel sounds, abdomen soft and nontender Extremeties - No edema, cyanosis or clubbing Musculo Skeletal - 5/5 strength, normal range of motion, no swollen or erythematous joints. Neurological Alert and oriented x 3, CN 2-12 grossly intact. Psychiatry- Agitated mood Result Diagrams: 06/05/19 06:31 06/05/19 06:31 Assess/Plan/Problems-Billing Assessment: crissy Mahlotra is a 64 y/o male with history of asthma and COPD not well controlled, T2DM, HTN, bipolar and schizoaffective disorder, presented with worsening dyspnea and lethargy, with frequent episodes of aspiration. He was found to have T2RF due to asthma/COPD exacerbation and underlying aspiration pneumonia. - Patient Problems (1) Asthma with COPD with exacerbation Current Visit: Yes Status: Acute Code(s): J44.1 - CHRONIC OBSTRUCTIVE PULMONARY DISEASE W (ACUTE) EXACERBATION; J45.901 - UNSPECIFIED ASTHMA WITH ( ACUTE) EXACERBATION SNOMED Code(s): 0256466010571 Comment: - Asthma/COPD not well controlled with active smoking, excessive use of nebulizer - presented as T2RF - oralized iv methylpred to pred 40mg bid, plan for another 4 days of pred - change nebulizer to puffer as pt is more familiar with that technique (2) Pneumonia Current Visit: Yes Status: Acute Code(s): J18.9 - PNEUMONIA, UNSPECIFIED ORGANISM SNOMED Code(s): 515458652 Comment: - aspirational pneumonia likely in view of his swallowing dysfunction and lower zone distribution - reviewed by speech therapist, nectar thick fluid recommended - iv zosyn and azithromycin D3 today, oralized azithromycin (3) Diabetes Current Visit: Yes Status: Acute Code(s): E11.9 - TYPE 2 DIABETES MELLITUS WITHOUT COMPLICATIONS SNOMED Code(s): 59632880 Comment: - continue metformin and lantus - put on 2U ACHS lispro - hbA1c 7.3% (4) DVT prophylaxis Current Visit: Yes Status: Acute Code(s): Z29.9 - ENCOUNTER FOR PROPHYLACTIC MEASURES, UNSPECIFIED SNOMED Code(s): 449019211 Comment: SQ Lovenox Status and Disposition: Inpatient Medicine, aim for discharge tomorrow if spO2> 88% during ambulation Attestation Documenting Resident: Damaris Varela Supervising Physician: Gary Chambers Attending/Supervising Physician Comment: Agree with plan as outlined in note from Dr. Varela unless indicated Attestation: This service has been performed in part by a resident under the direction of a teaching physician.I, Gary Chambers, performed the service, or was physically present during the critical, or lamas portions of the service, furnished by the resident. I participated in the management of the patient.
[2019-06-06] MEDS: Enoxaparin(*) 40 MG/0.4 ML SYR SUBCUT SCH (19:46)
[2019-06-06] MEDS: Atorvastatin* 40 MG TAB PO SCH (20:44)
[2019-06-06] MEDS: predniSONE TAB* 20 MG PO SCH (20:45)
[2019-06-06] MEDS: Haloperidol TAB* 10 MG PO SCH (20:45)
[2019-06-06] MEDS: Piperacillin/Tazobac ADVAN(*) 3.375 GM in NS 0.9% 100 ML* 100 ML IVPB SCH (20:52)
[2019-06-06] MEDS ORDERED: Clindamycin CAP* 150 MG PO SCH (22:00)
[2019-06-07] MEDS: Piperacillin/Tazobac ADVAN(*) 3.375 GM in NS 0.9% 100 ML* 100 ML IVPB SCH ×3 (03:00→21:24)
[2019-06-07] MEDS: Mometasone/Formoter 200/5 MDI INH SCH ×2 (07:34→20:39)
[2019-06-07] MEDS: SPIRIVA Respimat* (tiotropium) 2.5 mcg/inh Inhaler INH SCH (07:34)
[2019-06-07] MEDS: Insulin LISPRO* 1 UNITS UNIT SUBCUT SCH ×5 (09:02→21:08)
[2019-06-07] MEDS: Insulin GLARGINE(*) 1 UNITS UNIT SUBCUT SCH ×2 (09:31→20:03)
[2019-06-07] MEDS: Divalproex DR TAB(*) 250 MG PO SCH ×2 (09:33→20:53)
[2019-06-07] MEDS: Escitalopram * 10 MG TAB PO SCH (09:33)
[2019-06-07] MEDS: metFORMIN* 1,000 MG TAB PO SCH ×2 (09:33→20:55)
[2019-06-07] MEDS: Azithromycin TAB* 250 MG PO SCH (09:33)
[2019-06-07] MEDS: Lisinopril TAB* 10 MG PO SCH (09:34)
[2019-06-07] MEDS: predniSONE TAB* 20 MG PO SCH ×2 (09:34→20:53)
[2019-06-07] MEDS: Mupirocin 2% OINT* TUBE TOPICAL SCH ×3 (09:40→21:24)
[2019-06-07 12:12] LABS: Hematocrit 35 % (42-52); Hemoglobin 11.8 g/dL (14.0-18.0); Mean Corpuscular HGB Conc 34 g/dL (31-36); Mean Corpuscular Hemoglobin 33 pg (27-31); Mean Corpuscular Volume 97 fL (80-94); Mean Platelet Volume 7.8 fL (7.4-10.4); Platelet Count 222 10^3/uL (150-450); Red Blood Count 3.62 10^6 /uL (4.18-5.48); Red Cell Distribution Width 16 % (10-15); White Blood Count 7.1 10^3/uL (3.5-10.8)
[2019-06-07 12:28] LABS: BUN/Creatinine Ratio 23.1 (8-20); Calcium 9.1 mg/dL (8.6-10.3); EGFR African American 87.6 (>60); EGFR Non-African American 72.4 (>60); Potassium 4.1 mmol/L (3.5-5.0)
[2019-06-07 13:56] LABS: ABS Lymphocytes 1.2 10^3/ul (1.0-4.8); ABS Monocytes 0.7 10^3/ul (0-0.8); ABS Neutrophils 5.1 10^3/ul (1.5-7.7); Eosinophil % 0.5 %; Lymphocyte % 17.3 %
[2019-06-07] MEDS ORDERED: Insulin LISPRO* 1 UNITS UNIT SUBCUT ONE (14:04)
[2019-06-07] MEDS: amLODIPine TAB* 5 MG PO SCH (14:21)
[2019-06-07] MEDS: Enoxaparin(*) 40 MG/0.4 ML SYR SUBCUT SCH (17:21)
--- NOTE | 2019-06-07 18:10 | PN ---
Subjective Date of Service: 06/07/19 Interval History: Pt requires InO2 overnight. SpO2 keeps >88% during daytime. Still observed to breath better but still noted violent cough occasionally during eating. Spoke to patient and his sister at length updating his progress. Smoking cessation counselling was made, patient decided to try with the help of nicotine patch. Objective Active Medications: Albuterol (Ventolin Hfa Inhaler*) 2 puff INH Q4H PRN PRN Reason: SOB/WHEEZING Last Admin: 06/06/19 17:08 Dose: 2 puff Amlodipine Besylate (Norvasc Tab*) 10 mg PO DAILY [facility] Last Admin: 06/07/19 14:21 Dose: 10 mg Atorvastatin Calcium (Lipitor*) 40 mg PO BEDTIME [facility] Last Admin: 06/06/19 20:44 Dose: 40 mg Azithromycin (Zithromax Tab*) 500 mg PO DAILY [facility] Stop: 06/10/19 08:59 Last Admin: 06/07/19 09:33 Dose: 500 mg Dextrose (Dextrose 50% Vial 50 Ml*) 25 ml IV PUSH .FOR FS < 60 - SS PRN PRN Reason: FS < 60 Divalproex Sodium (Depakote Dr Tab(*)) 500 mg PO QAM [facility] Last Admin: 06/07/19 09:33 Dose: 500 mg Divalproex Sodium (Depakote Dr Tab(*)) 1,000 mg PO BEDTIME [facility] Last Admin: 06/06/19 20:58 Dose: 1,000 mg Enoxaparin Sodium (Lovenox(*)) 40 mg SUBCUT Q24H [facility] Last Admin: 06/07/19 17:21 Dose: 40 mg Escitalopram Oxalate (Lexapro *) 10 mg PO QAM [facility] Last Admin: 06/07/19 09:33 Dose: 10 mg Haloperidol (Haldol Tab*) 10 mg PO BEDTIME [facility] Last Admin: 06/06/19 20:45 Dose: 10 mg Hydralazine HCl (Apresoline Iv*) 5 mg IV SLOW PU Q6H PRN PRN Reason: SBP > 180 Last Admin: 06/06/19 20:57 Dose: 5 mg Piperacillin Sod/Tazobactam (Sod 3.375 gm/ Sodium Chloride) 100 mls @ 25 mls/ hr IVPB Q8H [facility] Last Admin: 06/07/19 12:05 Dose: 25 mls/hr Insulin Glargine (Lantus(*)) 5 units SUBCUT 1900 [facility] Last Admin: 06/06/19 19:44 Dose: 5 units Insulin Glargine (Lantus(*)) 7 units SUBCUT 0700 [facility] Last Admin: 06/07/19 09:31 Dose: 7 units Insulin Human Lispro (Humalog*) 2 units SUBCUT ACHS [facility] Last Admin: 06/07/19 17:21 Dose: 2 units Lisinopril (Prinivil Tab*) 20 mg PO DAILY [facility] Last Admin: 06/07/19 09:34 Dose: 20 mg Metformin HCl (Glucophage*) 1,000 mg PO BID [facility] Last Admin: 06/07/19 09:33 Dose: 1,000 mg Mometasone Furoate/Formoterol Fumar (Dulera 200/5 Mdi*) 2 puff INH BID [facility] Last Admin: 06/07/19 07:34 Dose: 2 puff Mupirocin (Bactroban 2 % Oint*) 1 applic TOPICAL TID [facility] Last Admin: 06/07/19 14:21 Dose: 1 applic Prednisone (Deltasone Tab*) 40 mg PO BID [facility] Last Admin: 06/07/19 09:34 Dose: 40 mg Tiotropium [place] (Spiriva Respimat 2.5 Mcg) 2 puff INH DAILY [facility] Last Admin: 06/07/19 07:34 Dose: 2 puff Vital Signs - 8 hr 06/07/19 06/07/19 11:18 15:15 Temperature 98.3 F 97.8 F Pulse Rate 49 55 Respiratory 19 18 Rate Blood Pressure 142/45 148/62 (mmHg) O2 Sat by Pulse 88 92 Oximetry Oxygen Devices in Use Now: Nasal Cannula Exam: General - NAD, sitting up in chair comfortably without O2 Eyes - PERRLA, EOM intact HEENT- no abnormality Cardiovascular - RRR no m/r/g, no JVD, no carotid bruits Lungs - wide spreading rhonchi and wheezing improved but still present Skin - No rashes, skin warm and dry, no erythematous areas Abdomen - Normal bowel sounds, abdomen soft and nontender Extremities - No edema, cyanosis or clubbing Musculo Skeletal - 5/5 strength, normal range of motion, no swollen or erythematous joints. Neurological Alert and oriented x 3, CN 2-12 grossly intact. Psychiatry-mood stable Result Diagrams: 06/07/19 12:02 06/07/19 12:02 Assess/Plan/Problems-Billing Assessment: crissy Malhotra is a 64 y/o male with history of asthma and COPD not well controlled, T2DM, HTN, bipolar and schizoaffective disorder, presented with worsening dyspnea and lethargy, with frequent episodes of aspiration. He was found to have T2RF due to asthma/COPD exacerbation and underlying aspiration pneumonia. - Patient Problems (1) Asthma with COPD with exacerbation Current Visit: Yes Status: Acute Code(s): J44.1 - CHRONIC OBSTRUCTIVE PULMONARY DISEASE W (ACUTE) EXACERBATION; J45.901 - UNSPECIFIED ASTHMA WITH ( ACUTE) EXACERBATION SNOMED Code(s): 1351960541450 Comment: - Asthma/COPD not well controlled with active smoking, excessive use of nebulizer - presented as T2RF - pred 40mg bid now, plan for another 3 days of pred to complete 7 days in total (2) Pneumonia Current Visit: Yes Status: Acute Code(s): J18.9 - PNEUMONIA, UNSPECIFIED ORGANISM SNOMED Code(s): 506764170 Comment: - aspirational pneumonia likely in view of his swallowing dysfunction and lower zone distribution - reviewed by speech therapist, nectar thick fluid recommended - iv zosyn and azithromycin D4 today (3) Diabetes Current Visit: Yes Status: Acute Code(s): E11.9 - TYPE 2 DIABETES MELLITUS WITHOUT COMPLICATIONS SNOMED Code(s): 01226105 Comment: - continue metformin and lantus - put on 2U ACHS lispro - hbA1c 7.3% (4) DVT prophylaxis Current Visit: Yes Status: Acute Code(s): Z29.9 - ENCOUNTER FOR PROPHYLACTIC MEASURES, UNSPECIFIED SNOMED Code(s): 715520279 Comment: SQ Lovenox (5) Tobacco use disorder Current Visit: Yes Status: Acute Code(s): F17.200 - NICOTINE DEPENDENCE, UNSPECIFIED, UNCOMPLICATED SNOMED Code(s): 906823643 Comment: Patient wants to start smoking cessation Start nicotine replacement. Status and Disposition: Inpatient Medicine, aim for discharge when spO2> 88% during ambulation Attestation Documenting Resident: Damaris Varela Supervising Physician: Gary Chambers Attending/Supervising Physician Comment: Agree with plan as outlined in note from Dr. Varela unless noted here. Aspiration PNA, COPD/Asthma improving but still with increased oxygen demand from baseline Attempt ambulation again tomorrow Attestation: This service has been performed in part by a resident under the direction of a teaching physician.I, Gary Chambers, performed the service, or was physically present during the critical, or lamas portions of the service, furnished by the resident. I participated in the management of the patient.
[2019-06-07] MEDS: Haloperidol TAB* 10 MG PO SCH (20:51)
[2019-06-07] MEDS: Atorvastatin* 40 MG TAB PO SCH (20:54)
[2019-06-08] MEDS: Piperacillin/Tazobac ADVAN(*) 3.375 GM in NS 0.9% 100 ML* 100 ML IVPB SCH ×3 (04:36→20:24)
[2019-06-08] MEDS: Insulin LISPRO* 1 UNITS UNIT SUBCUT SCH ×4 (08:13→20:24)
[2019-06-08] MEDS: Mometasone/Formoter 200/5 MDI INH SCH ×3 (08:23→20:23)
[2019-06-08] MEDS: SPIRIVA Respimat* (tiotropium) 2.5 mcg/inh Inhaler INH SCH (08:23)
[2019-06-08] MEDS: Insulin GLARGINE(*) 1 UNITS UNIT SUBCUT SCH ×2 (09:53→17:52)
[2019-06-08] MEDS: Divalproex DR TAB(*) 250 MG PO SCH ×2 (09:54→20:25)
[2019-06-08] MEDS: Azithromycin TAB* 250 MG PO SCH (09:54)
[2019-06-08] MEDS: predniSONE TAB* 20 MG PO SCH ×2 (09:54→20:24)
[2019-06-08] MEDS: metFORMIN* 1,000 MG TAB PO SCH ×2 (09:55→20:25)
[2019-06-08] MEDS: amLODIPine TAB* 5 MG PO SCH (09:55)
[2019-06-08] MEDS: Lisinopril TAB* 10 MG PO SCH (09:55)
[2019-06-08] MEDS: Escitalopram * 10 MG TAB PO SCH (09:55)
[2019-06-08] MEDS: Mupirocin 2% OINT* TUBE TOPICAL SCH ×3 (10:22→20:25)
[2019-06-08] MEDS: Albuterol HFA INHALER* 8 gm MDI INH PRN ×2 (15:37→18:00)
[2019-06-08] MEDS: Enoxaparin(*) 40 MG/0.4 ML SYR SUBCUT SCH (17:53)
--- NOTE | 2019-06-08 18:22 | PN ---
Subjective Date of Service: 06/08/19 Interval History: Feels better wants to go home denies cough, SOB, LH, CP Objective Active Medications: Albuterol (Ventolin Hfa Inhaler*) 2 puff INH Q4H PRN PRN Reason: SOB/WHEEZING Last Admin: 06/08/19 18:00 Dose: 2 puff Amlodipine Besylate (Norvasc Tab*) 10 mg PO DAILY [facility] Last Admin: 06/08/19 09:55 Dose: 10 mg Atorvastatin Calcium (Lipitor*) 40 mg PO BEDTIME [facility] Last Admin: 06/07/19 20:54 Dose: 40 mg Azithromycin (Zithromax Tab*) 500 mg PO DAILY [facility] Stop: 06/10/19 08:59 Last Admin: 06/08/19 09:54 Dose: 500 mg Dextrose (Dextrose 50% Vial 50 Ml*) 25 ml IV PUSH .FOR FS < 60 - SS PRN PRN Reason: FS < 60 Divalproex Sodium (Depakote Dr Tab(*)) 500 mg PO QAM [facility] Last Admin: 06/08/19 09:54 Dose: 500 mg Divalproex Sodium (Depakote Dr Tab(*)) 1,000 mg PO BEDTIME [facility] Last Admin: 06/07/19 20:53 Dose: 1,000 mg Enoxaparin Sodium (Lovenox(*)) 40 mg SUBCUT Q24H [facility] Last Admin: 06/08/19 17:53 Dose: 40 mg Escitalopram Oxalate (Lexapro *) 10 mg PO QAM [facility] Last Admin: 06/08/19 09:55 Dose: 10 mg Haloperidol (Haldol Tab*) 10 mg PO BEDTIME [facility] Last Admin: 06/07/19 20:51 Dose: 10 mg Hydralazine HCl (Apresoline Iv*) 5 mg IV SLOW PU Q6H PRN PRN Reason: SBP > 180 Last Admin: 06/06/19 20:57 Dose: 5 mg Piperacillin Sod/Tazobactam (Sod 3.375 gm/ Sodium Chloride) 100 mls @ 25 mls/ hr IVPB Q8H [facility] Last Admin: 06/08/19 12:59 Dose: 25 mls/hr Insulin Glargine (Lantus(*)) 5 units SUBCUT 1900 [facility] Last Admin: 06/08/19 17:52 Dose: 5 units Insulin Glargine (Lantus(*)) 7 units SUBCUT 0700 [facility] Last Admin: 06/08/19 09:53 Dose: 7 units Insulin Human Lispro (Humalog*) 2 units SUBCUT ACHS [facility] Last Admin: 06/08/19 17:51 Dose: 2 units Lisinopril (Prinivil Tab*) 20 mg PO DAILY [facility] Last Admin: 06/08/19 09:55 Dose: 20 mg Metformin HCl (Glucophage*) 1,000 mg PO BID [facility] Last Admin: 06/08/19 09:55 Dose: 1,000 mg Mometasone Furoate/Formoterol Fumar (Dulera 200/5 Mdi*) 2 puff INH BID [facility] Last Admin: 06/08/19 17:59 Dose: 2 puff Mupirocin (Bactroban 2 % Oint*) 1 applic TOPICAL TID [facility] Last Admin: 06/08/19 13:08 Dose: 1 applic Prednisone (Deltasone Tab*) 40 mg PO BID [facility] Last Admin: 06/08/19 09:54 Dose: 40 mg Tiotropium [place] (Spiriva Respimat 2.5 Mcg) 2 puff INH DAILY [facility] Last Admin: 06/08/19 08:23 Dose: 2 puff Vital Signs - 8 hr 06/08/19 15:15 Temperature 98.2 F Pulse Rate 53 Respiratory 22 Rate Blood Pressure 141/51 (mmHg) O2 Sat by Pulse 96 Oximetry Oxygen Devices in Use Now: Nasal Cannula Appearance: watching TV in chair, NAD Eyes: No Scleral Icterus, PERRLA Neck: NL Appearance and Movements; NL JVP, Trachea Midline Respiratory: Symmetrical Chest Expansion and Respiratory Effort, - - scattered wheeze througout improving Cardiovascular: RRR Abdominal: NL Sounds; No Tenderness; No Distention, No Hepatosplenomegaly Lymphatic: No Cervical Adenopathy Extremities: No Edema Skin: No Rash or Ulcers Neurological: Alert and Oriented x 3 Result Diagrams: 06/07/19 12:02 06/07/19 12:02 Microbiology and Other Data: Microbiology 06/05/19 08:30 Gram Stain - Final Sputum Sputum Culture - Final Staphylococcus Aureus Normal Cira 06/03/19 16:41 Stool Culture - Final Stool Stool Gross Appearance - Final Shiga Toxin I & II - Final Assess/Plan/Problems-Billing Assessment: 64 y/o male with history of asthma and COPD not well controlled, T2DM, HTN, bipolar and schizoaffective disorder, presented with worsening dyspnea and lethargy, in setting of frequent episodes of aspiration. He was found to have T2RF due to asthma/COPD exacerbation and underlying aspiration pneumonia. - Patient Problems (1) Asthma with COPD with exacerbation Comment: - Asthma/COPD not well controlled with active smoking, excessive use of nebulizer - presented as T2RF - pred 40mg bid now, plan for another 3 days of pred to complete 7 days in total (2) Pneumonia Comment: - aspirational pneumonia likely in view of his swallowing dysfunction and lower zone distribution - reviewed by speech therapist, nectar thick fluid recommended - iv zosyn -completed mehnaz (3) Diabetes SNOMED Code(s): 69229361 (4) Tobacco use disorder Comment: Patient wants to start smoking cessation Start nicotine replacement. (5) DVT prophylaxis Comment: SQ Lovenox Status and Disposition: Inpatient Medicine, aim for discharge when spO2> 88% during ambulation
[2019-06-08] MEDS: Atorvastatin* 40 MG TAB PO SCH (20:24)
[2019-06-08] MEDS: Haloperidol TAB* 10 MG PO SCH (20:24)
[2019-06-09] MEDS: Piperacillin/Tazobac ADVAN(*) 3.375 GM in NS 0.9% 100 ML* 100 ML IVPB SCH ×3 (03:24→19:41)
[2019-06-09] MEDS: SPIRIVA Respimat* (tiotropium) 2.5 mcg/inh Inhaler INH SCH (08:20)
[2019-06-09] MEDS: Mometasone/Formoter 200/5 MDI INH SCH ×2 (08:21→20:06)
[2019-06-09] MEDS: Divalproex DR TAB(*) 250 MG PO SCH ×2 (09:10→21:14)
[2019-06-09] MEDS: metFORMIN* 1,000 MG TAB PO SCH ×2 (09:10→21:13)
[2019-06-09] MEDS: amLODIPine TAB* 5 MG PO SCH (09:11)
[2019-06-09] MEDS: Lisinopril TAB* 10 MG PO SCH (09:11)
[2019-06-09] MEDS: predniSONE TAB* 20 MG PO SCH ×2 (09:11→21:12)
[2019-06-09] MEDS: Insulin LISPRO* 1 UNITS UNIT SUBCUT SCH ×3 (09:28→16:35)
[2019-06-09] MEDS: Insulin GLARGINE(*) 1 UNITS UNIT SUBCUT SCH ×2 (09:30→19:45)
[2019-06-09] MEDS: Mupirocin 2% OINT* TUBE TOPICAL SCH ×3 (10:04→21:27)
[2019-06-09] MEDS: Escitalopram * 10 MG TAB PO SCH (10:15)
[2019-06-09] MEDS: Albuterol HFA INHALER* 8 gm MDI INH PRN (14:03)
--- NOTE | 2019-06-09 17:12 | PN ---
Subjective Date of Service: 06/09/19 Interval History: He was on InO2 4L overnight. He still had wheezing and cough bouts after eating or drinking despite thickening. But he felt improving in general. Ambulating to restroom without problems. Objective Active Medications: Albuterol (Ventolin Hfa Inhaler*) 2 puff INH Q4H PRN PRN Reason: SOB/WHEEZING Last Admin: 06/09/19 14:03 Dose: 2 puff Amlodipine Besylate (Norvasc Tab*) 10 mg PO DAILY [facility] Last Admin: 06/09/19 09:11 Dose: 10 mg Atorvastatin Calcium (Lipitor*) 40 mg PO BEDTIME [facility] Last Admin: 06/08/19 20:24 Dose: 40 mg Dextrose (Dextrose 50% Vial 50 Ml*) 25 ml IV PUSH .FOR FS < 60 - SS PRN PRN Reason: FS < 60 Divalproex Sodium (Depakote Dr Tab(*)) 500 mg PO QAM [facility] Last Admin: 06/09/19 09:10 Dose: 500 mg Divalproex Sodium (Depakote Dr Tab(*)) 1,000 mg PO BEDTIME [facility] Last Admin: 06/08/19 20:25 Dose: 1,000 mg Enoxaparin Sodium (Lovenox(*)) 40 mg SUBCUT Q24H [facility] Last Admin: 06/08/19 17:53 Dose: 40 mg Escitalopram Oxalate (Lexapro *) 10 mg PO QAM [facility] Last Admin: 06/09/19 10:15 Dose: 10 mg Haloperidol (Haldol Tab*) 10 mg PO BEDTIME [facility] Last Admin: 06/08/19 20:24 Dose: 10 mg Hydralazine HCl (Apresoline Iv*) 5 mg IV SLOW PU Q6H PRN PRN Reason: SBP > 180 Last Admin: 06/06/19 20:57 Dose: 5 mg Piperacillin Sod/Tazobactam (Sod 3.375 gm/ Sodium Chloride) 100 mls @ 25 mls/ hr IVPB Q8H [facility] Last Admin: 06/09/19 11:43 Dose: 25 mls/hr Insulin Glargine (Lantus(*)) 5 units SUBCUT 1900 [facility] Last Admin: 06/08/19 17:52 Dose: 5 units Insulin Glargine (Lantus(*)) 7 units SUBCUT 0700 [facility] Last Admin: 06/09/19 09:30 Dose: 7 units Insulin Human Lispro (Humalog*) 2 units SUBCUT ACHS [facility] Last Admin: 06/09/19 16:35 Dose: 2 units Lisinopril (Prinivil Tab*) 20 mg PO DAILY [facility] Last Admin: 06/09/19 09:11 Dose: 20 mg Metformin HCl (Glucophage*) 1,000 mg PO BID [facility] Last Admin: 06/09/19 09:10 Dose: 1,000 mg Mometasone Furoate/Formoterol Fumar (Dulera 200/5 Mdi*) 2 puff INH BID [facility] Last Admin: 06/09/19 08:21 Dose: 2 puff Mupirocin (Bactroban 2 % Oint*) 1 applic TOPICAL TID [facility] Last Admin: 06/09/19 16:38 Dose: 1 applic Prednisone (Deltasone Tab*) 40 mg PO BID [facility] Last Admin: 06/09/19 09:11 Dose: 40 mg Tiotropium [place] (Spiriva Respimat 2.5 Mcg) 2 puff INH DAILY [facility] Last Admin: 06/09/19 08:20 Dose: 2 puff Vital Signs - 8 hr 06/09/19 06/09/19 10:54 14:04 Temperature 96.7 F Pulse Rate 47 67 Respiratory 20 18 Rate Blood Pressure 147/47 (mmHg) O2 Sat by Pulse 94 98 Oximetry Oxygen Devices in Use Now: Nasal Cannula Exam: General - NAD, sitting up in bed with InO2 Eyes - PERRLA, EOM intact HEENT- no abnormality Cardiovascular - RRR no m/r/g, no JVD, no carotid bruits Lungs - wide spreading rhonchi improved but still present Skin - No rashes, skin warm and dry, no erythematous areas Abdomen - Normal bowel sounds, abdomen soft and nontender Extremities - No edema, cyanosis or clubbing Musculo Skeletal - 5/5 strength, normal range of motion, no swollen or erythematous joints. Neurological Alert and oriented x 3, CN 2-12 grossly intact. Psychiatry-mood stable Result Diagrams: 06/07/19 12:02 06/07/19 12:02 Microbiology and Other Data: Microbiology 06/05/19 08:30 Gram Stain - Final Sputum Sputum Culture - Final Staphylococcus Aureus Normal Cira 06/03/19 16:41 Stool Culture - Final Stool Stool Gross Appearance - Final Shiga Toxin I & II - Final Assess/Plan/Problems-Billing Assessment: 64 y/o male with history of asthma and COPD not well controlled, T2DM, HTN, bipolar and schizoaffective disorder, presented with worsening dyspnea and lethargy, in setting of frequent episodes of aspiration. He was found to have T2RF due to asthma/COPD exacerbation and underlying aspiration pneumonia. - Patient Problems (1) Asthma with COPD with exacerbation Comment: - Asthma/COPD not well controlled with active smoking, excessive use of nebulizer - presented as T2RF - pred 40mg bid now, plan for another 2 days of pred to complete 7 days in total - walking test today to see O2 requirement for home O2 requisition (2) Pneumonia Comment: - aspirational pneumonia likely in view of his swallowing dysfunction and lower zone distribution - reviewed by speech therapist, nectar thick fluid recommended - iv zosyn D6 today, stop tomorrow to complete 7 days - completed azithro (3) Diabetes SNOMED Code(s): 65956458 (4) DVT prophylaxis Comment: SQ Lovenox (5) Tobacco use disorder Comment: Patient wants to start smoking cessation Start nicotine replacement. Status and Disposition: Inpatient Medicine, aim for discharge with InO2 Attestation Documenting Resident: Damaris Varela Supervising Physician: Gary Chambers Attending/Supervising Physician Comment: Agree with plan as outlined in note by Dr. Varela unless indicated here. Aspiration PNA with COPD improving Will likely need oxygen on discharge (new) requested walk test today to qualify Discharge pending [place] readiness to accept back to their facility Attestation: This service has been performed in part by a resident under the direction of a teaching physician.I, Gary Chambers, performed the service, or was physically present during the critical, or lamas portions of the service, furnished by the resident. I participated in the management of the patient.
[2019-06-09] MEDS ORDERED: Albuterol/Ipratropium NEB.SOL* Albuterol 2.5 MG/Ipratropium 0.5 MG 3 ML INH SCH ×2 (18:00→19:00)
[2019-06-09] MEDS: Enoxaparin(*) 40 MG/0.4 ML SYR SUBCUT SCH (19:46)
[2019-06-09] MEDS: Albuterol/Ipratropium NEB.SOL* Albuterol 2.5 MG/Ipratropium 0.5 MG 3 ML INH SCH (20:05)
[2019-06-09] MEDS: Haloperidol TAB* 10 MG PO SCH (21:13)
[2019-06-09] MEDS: Atorvastatin* 40 MG TAB PO SCH (21:13)
[2019-06-10] MEDS: Albuterol/Ipratropium NEB.SOL* Albuterol 2.5 MG/Ipratropium 0.5 MG 3 ML INH SCH ×4 (01:32→13:03)
[2019-06-10] MEDS: Piperacillin/Tazobac ADVAN(*) 3.375 GM in NS 0.9% 100 ML* 100 ML IVPB SCH ×2 (03:15→12:41)
[2019-06-10] MEDS ORDERED: Albuterol/Ipratropium NEB.SOL* Albuterol 2.5 MG/Ipratropium 0.5 MG 3 ML ONE (04:03)
[2019-06-10] MEDS: SPIRIVA Respimat* (tiotropium) 2.5 mcg/inh Inhaler INH SCH (07:39)
[2019-06-10] MEDS: Mometasone/Formoter 200/5 MDI INH SCH (07:39)
[2019-06-10] MEDS: Insulin GLARGINE(*) 1 UNITS UNIT SUBCUT SCH (09:46)
[2019-06-10] MEDS: Divalproex DR TAB(*) 250 MG PO SCH (09:47)
[2019-06-10] MEDS: Escitalopram * 10 MG TAB PO SCH (09:48)
[2019-06-10] MEDS: amLODIPine TAB* 5 MG PO SCH (09:49)
[2019-06-10] MEDS: Lisinopril TAB* 10 MG PO SCH (09:51)
[2019-06-10] MEDS: predniSONE TAB* 20 MG PO SCH (09:51)
[2019-06-10] MEDS: Mupirocin 2% OINT* TUBE TOPICAL SCH (09:52)
[2019-06-10] MEDS: metFORMIN* 1,000 MG TAB PO SCH (09:52)
--- NOTE | 2019-06-10 12:47 | PN ---
Subjective Date of Service: 06/10/19 Interval History: HD8 on 06/10 64 M with history of asthma and COPD not well controlled, IDDM, HTN, bipolar and schizoaffective disorder, presented with worsening dyspnea and lethargy, found to have COPD exacerbation and aspiration PNA. Found to have dyspohagia requering puree thickened and honey thick no straws Overnight no acute events, still requiring O2, though today trialed off at rest , awaiting ambulatory sats Labs 06/07 normal This morning, seen eating lunch, pleasant and well eager to go home. We discuss need for walking O2 sats again and he is willing, reports no SOB CP lethargy GI or MSK complaints. Objective Active Medications: Albuterol/Ipratropium (Duoneb (Albuterol 2.5 Mg/Ipratropium 0.5 Mg)) 1 neb INH [id number] AWAKE [facility] Last Admin: 06/10/19 07:40 Dose: 1 neb Amlodipine Besylate (Norvasc Tab*) 10 mg PO DAILY [facility] Last Admin: 06/10/19 09:49 Dose: 10 mg Atorvastatin Calcium (Lipitor*) 40 mg PO BEDTIME [facility] Last Admin: 06/09/19 21:13 Dose: 40 mg Dextrose (Dextrose 50% Vial 50 Ml*) 25 ml IV PUSH .FOR FS < 60 - SS PRN PRN Reason: FS < 60 Divalproex Sodium (Depakote Dr Tab(*)) 500 mg PO QAM [facility] Last Admin: 06/10/19 09:47 Dose: 500 mg Divalproex Sodium (Depakote Dr Tab(*)) 1,000 mg PO BEDTIME [facility] Last Admin: 06/09/19 21:14 Dose: 1,000 mg Enoxaparin Sodium (Lovenox(*)) 40 mg SUBCUT Q24H [facility] Last Admin: 06/09/19 19:46 Dose: 40 mg Escitalopram Oxalate (Lexapro *) 10 mg PO QAM [facility] Last Admin: 06/10/19 09:48 Dose: 10 mg Haloperidol (Haldol Tab*) 10 mg PO BEDTIME [facility] Last Admin: 06/09/19 21:13 Dose: 10 mg Piperacillin Sod/Tazobactam (Sod 3.375 gm/ Sodium Chloride) 100 mls @ 25 mls/ hr IVPB Q8H [facility] Stop: 06/10/19 19:30 Last Admin: 06/10/19 12:41 Dose: 25 mls/hr Insulin Glargine (Lantus(*)) 5 units SUBCUT 1900 [facility] Last Admin: 06/09/19 19:45 Dose: 5 units Insulin Glargine (Lantus(*)) 7 units SUBCUT 0700 [facility] Last Admin: 06/10/19 09:46 Dose: 7 units Lisinopril (Prinivil Tab*) 20 mg PO DAILY [facility] Last Admin: 06/10/19 09:51 Dose: 20 mg Metformin HCl (Glucophage*) 1,000 mg PO BID [facility] Last Admin: 06/10/19 09:52 Dose: 1,000 mg Mometasone Furoate/Formoterol Fumar (Dulera 200/5 Mdi*) 2 puff INH BID [facility] Last Admin: 06/10/19 07:39 Dose: 2 puff Mupirocin (Bactroban 2 % Oint*) 1 applic TOPICAL TID [facility] Last Admin: 06/10/19 09:52 Dose: 1 applic Prednisone (Deltasone Tab*) 40 mg PO BID [facility] Stop: 06/11/19 21:00 Last Admin: 06/10/19 09:51 Dose: 40 mg Tiotropium [place] (Spiriva Respimat 2.5 Mcg) 2 puff INH DAILY [facility] Last Admin: 06/10/19 07:39 Dose: 2 puff Vital Signs - 8 hr 06/10/19 06/10/19 07:44 08:16 Temperature 97.7 F Pulse Rate 64 50 Respiratory 16 20 Rate Blood Pressure 136/48 (mmHg) O2 Sat by Pulse 99 98 Oximetry Oxygen Devices in Use Now: Nasal Cannula Appearance: Pleasant man in NAD, talkative, intense Eyes: No Scleral Icterus, PERRLA Ears/Nose/Mouth/Throat: NL Teeth, Lips, Gums, Mucous Membranes Moist Neck: NL Appearance and Movements; NL JVP, Trachea Midline Respiratory: - - Diminshed to blt bases, no wheeze no rhonchi Cardiovascular: NL Sounds; No Murmurs; No JVD, RRR Abdominal: NL Sounds; No Tenderness; No Distention, No Hepatosplenomegaly Lymphatic: No Cervical Adenopathy Extremities: No Edema Skin: No Rash or Ulcers Neurological: - - Oriented to time self place event Result Diagrams: 06/07/19 12:02 06/07/19 12:02 Microbiology and Other Data: Microbiology 06/05/19 08:30 Gram Stain - Final Sputum Sputum Culture - Final Staphylococcus Aureus Normal Cira 06/03/19 16:41 Stool Culture - Final Stool Stool Gross Appearance - Final Shiga Toxin I & II - Final Assess/Plan/Problems-Billing Assessment: 64 M with history of asthma and COPD not well controlled, IDDM, HTN, bipolar and schizoaffective disorder, presented with worsening dyspnea and lethargy, found to have COPD exacerbation and aspiration PNA. Found to have dysphagia requiring puree thickened and honey thick liquid - Patient Problems (1) Pneumonia Current Visit: Yes Status: Acute Code(s): J18.9 - PNEUMONIA, UNSPECIFIED ORGANISM SNOMED Code(s): 901341134 Comment: - aspirational pneumonia likely in view of his swallowing dysfunction and lower zone distribution - reviewed by speech therapist, nectar thick fluid recommended - Day 05/09 on 06/10 d/c today - Wean O2 as able, if stable on O2 sats will d/c today (2) Schizo-affective schizophrenia Current Visit: Yes Status: Acute Code(s): F25.0 - SCHIZOAFFECTIVE DISORDER, BIPOLAR TYPE SNOMED Code(s): 810954663 Comment: - Depakote, Lexapro, Haldol (3) Hypertension Current Visit: Yes Status: Acute Code(s): I10 - ESSENTIAL (PRIMARY) HYPERTENSION SNOMED Code(s): 59163206 Comment: - Lisinopril (4) Oropharyngeal dysphagia Current Visit: Yes Status: Acute Code(s): R13.12 - DYSPHAGIA, OROPHARYNGEAL PHASE SNOMED Code(s): 48526886 Comment: - nectar thick, pureed (5) Asthma with COPD with exacerbation Current Visit: Yes Status: Acute Code(s): J44.1 - CHRONIC OBSTRUCTIVE PULMONARY DISEASE W (ACUTE) EXACERBATION; J45.901 - UNSPECIFIED ASTHMA WITH ( ACUTE) EXACERBATION SNOMED Code(s): 5604761459302 Comment: - Asthma/COPD not well controlled with active smoking, excessive use of nebulizer - Pred BID, change to q day, Day 8/? will taper to q day and then stop 06/11 - Continue home inhaler therapy (6) Diabetes Current Visit: Yes Status: Acute Code(s): E11.9 - TYPE 2 DIABETES MELLITUS WITHOUT COMPLICATIONS SNOMED Code(s): 59593204 Comment: - continue metformin and lantus - hbA1c 7.3% (7) Tobacco use disorder Current Visit: Yes Status: Acute Code(s): F17.200 - NICOTINE DEPENDENCE, UNSPECIFIED, UNCOMPLICATED SNOMED Code(s): 284413633 Comment: - NRT (8) DVT prophylaxis Current Visit: Yes Status: Acute Code(s): Z29.9 - ENCOUNTER FOR PROPHYLACTIC MEASURES, UNSPECIFIED SNOMED Code(s): 437572025 Comment: SQ Lovenox (9) Full code status Current Visit: Yes Status: Acute Code(s): Z78.9 - OTHER SPECIFIED HEALTH STATUS SNOMED Code(s): 765445678 Status and Disposition: Summary of order changes: Stopped Zosyn, stopped BID pred Inpatient Medicine, aim for discharge if O2 sats stable on walking
[2019-06-10 16:16] VITALS: BP 132/47
--- NOTE | 2019-06-10 19:29 | DS ---
DISCHARGE SUMMARY: DATE OF ADMISSION: 06/03/19 DATE OF DISCHARGE: 06/10/19 PRIMARY CARE PROVIDER: Dr. Ramírez Callaway. DISPOSITION AT THE TIME OF DISCHARGE: To return to [facility], where the patient was domiciled prior to this admission. MEDICATIONS AT THE TIME OF DISCHARGE: 1. Atorvastatin 40 mg p.o. q.h.s. 2. Depakote 1000 mg p.o. q.h.s., 500 mg p.o. q.a.m. 3. Lexapro 10 mg p.o. q.a.m. 4. Haloperidol 1 tab p.o. q.h.s. 5. Insulin glargine 7 units subcutaneous at 7 a.m. and 5 units subcutaneous at 1900. 6. Lisinopril 20 mg p.o. daily. 7. Metformin 1000 mg p.o. b.i.d. 8. Mupirocin 2% ointment 1 application topical t.i.d. 9. Incruse Ellipta 62.5 mcg inhaled daily. 10. Albuterol inhaler 2 puffs inhaled q.4 hours p.r.n. for shortness of breath. 11. Albuterol/ipratropium Respimat 2 puffs inhaled q.6 hours p.r.n. for shortness of breath or wheezing. 12. Budesonide/formoterol (Symbicort) 160/4.5 two puffs inhaled b.i.d. 13. Ibuprofen 200 mg p.o. q.6 hours p.r.n. for pain. 14. Insulin aspart 2 units subcutaneous b.i.d. p.r.n. for glucose greater than 350. 15. Triamcinolone 0.1% cream 1 application topical q.a.m. 16. Vitamin B complex 1 capsule p.o. q.a.m. Medication changes at the time of discharge are none. The patient is to return on home medications without changes. The patient completed 8 days of antibiotics and steroids while in the hospital for aspiration pneumonia. PRIMARY DIAGNOSES: 1. Aspiration pneumonia secondary to oral dysphagia. 2. Chronic obstructive pulmonary disease exacerbation. SECONDARY DIAGNOSES: 1. Chronic obstructive pulmonary disease. 2. Insulin-dependent diabetes. 3. Hypertension. 4. Bipolar and schizoaffective disorder. 5. Tobacco use disorder. HISTORY OF PRESENT ILLNESS AND HOSPITAL COURSE: A 64-year-old male domiciled at [facility] who presented to the hospital on 06/03/19 with chief complaint of shortness of breath, lethargy, and cough with yellow sputum, also seemed off of his baseline. Sister also noted that he was frequently choking when eating. In the emergency room, chest x-ray showed concern for aspiration events. Labs showed leukocytosis. The patient was afebrile. No signs of sepsis. Furthermore, the patient on exam in the ER was found to have wheeze and concern for COPD exacerbation and the patient was admitted to the hospital. Also note that the patient had a new oxygen requirement and was admitted to the hospital as follows: 1. Hypoxic respiratory failure. This was secondary to aspiration pneumonia given leukocytosis, chest x-ray changes, and likely COPD exacerbation. The patient was treated with Zosyn and azithromycin, Zosyn for 7 days and azithromycin for 5 days. He was started on prednisone 40 mg p.o. b.i.d. and received a total of 7 days. He was placed on albuterol nebs, inhaled corticosteroid, and inhaled long-acting muscarinic medications substituted for Incruse as Spiriva. The patient had significant improvement of his hypoxic respiratory failure and by hospital day 7 was not requiring oxygen, although still needing oxygen during ambulation. On 06/10/19, the patient was able to ambulate multiple times around the unit with oxygen saturation of 93% to 95% without oxygen and thus, was found to be completed for his treatment and stable for discharge. 2. Mildly elevated troponin. This is in the absence of chest pain or ischemic changes on EKG. Thought to be secondary to demand ischemia. The patient never complained of chest pain and no EKG changes, was monitored on tele, although discontinued and once hypoxemia improved, troponin trended down without any other complications. 3. Insulin-dependent diabetes. Continued on his home metformin and insulin at home doses. His blood sugars have been well controlled. 4. Bipolar disorder. He was continued on his home Haldol, Depakote, and Lexapro. 5. Oral dysphagia. The patient has aspiration pneumonia on admission and Speech Therapy performed a swallow evaluation, which noted moderate oropharyngeal dysphagia characterized by komal aspiration of liquids and inadequate mastication of soft solids and Speech Therapy ultimately required pureed texture solids and honey-thickened liquids with no straws. This is likely oropharyngeal dysphagia secondary to prior trauma done during intubation and diet modification will prevent further aspiration pneumonias. This diet change should be made moving forward. 6. Tobacco use disorder. The patient was offered nicotine replacement therapy and should be counseled on smoking cessation. 7. COPD. The patient's COPD at baseline is not oxygen dependent, but is on triple inhaler therapy. He is continued to be optimized and does not need oxygen coming home. Again, proper treatment of his oropharyngeal dysphagia is lamas moving forward to prevent further aspirations. LABS AND STUDIES: Last labs were on 06/07/19: White blood cell count 7.1, hemoglobin 11.8, hematocrit 35, and platelets 222. BMP shows sodium 143, potassium 4.1, chloride 102, carbon dioxide 35, anion gap 6, BUN 24, creatinine 1.04, [id number] glucose is 113. Imaging done includes a chest x-ray on 06/03/19, which shows nonspecific patchy infiltrate. EKG done on 06/04/19 shows sinus rhythm with no acute signs of ischemia and QTc at 438. ITEMS TO FOLLOW UP ON STATUS POST DISCHARGE: 1. Aspiration pneumonia secondary to oropharyngeal dysphagia. The patient's aspiration pneumonia is considered treated and he completed antibiotics and steroid course while here in the hospital. Modification of diet from nectar- thick to honey- thick and pureed solids is imperative moving forward, and the patient tolerated this diet change while here in the hospital. 2. Med reconciliation: No other medications were changed during this hospitalization and he completed a 7-day course of both antibiotics and steroids for again both aspiration pneumonia and COPD exacerbation. TIME SPENT: Forty-five minutes were spent on the planning of this discharge with over half of that spent directly at the bedside of the patient providing direct patient care. If there are any questions about the care of this patient during this hospitalization, please do not hesitate to reach out. Plan of care was discussed with the patient and his family, who agree with transfer back to home. No med changes are noted and important emphasis on diet changes with his moderate oropharyngeal dysphagia at baseline is noted. [id number]/[facility] #: [id number] JENNIFER
[2019-06-11] MEDS ORDERED: predniSONE TAB* 20 MG PO SCH (09:00)
--- NOTE | 2019-06-11 22:52 | DS ---
DISCHARGE SUMMARY: ADDENDUM: CLINICAL STATUS AT THE TIME OF DISCHARGE: Stable. DISPOSITION AT THE TIME OF DISCHARGE: To return to [facility] where the patient was domiciled prior to this admission. [id number]/[facility] #: [id number] JENNIFER
== END 2019-06-10 16:10 | DRG 177 ==
LOC: ED 12:59 → MEDTELE 17:54
PROVIDERS: ADMIT Internal Medicine; ATTEND Internal Medicine
DX: J69.0 Pneumonitis due to inhalation of food and vomit (principal); J96.01 Acute respiratory failure with hypoxia; J44.1 Chronic obstructive pulmonary disease with (acute) exacerbation; N17.9 Acute kidney failure, unspecified; F25.0 Schizoaffective disorder, bipolar type; R13.12 Dysphagia, oropharyngeal phase; E11.319 Type 2 diabetes mellitus with unspecified diabetic retinopathy without macular edema; I10 Essential (primary) hypertension; F17.210 Nicotine dependence, cigarettes, uncomplicated; R74.8 Abnormal levels of other serum enzymes; E78.5 Hyperlipidemia, unspecified; Z79.4 Long term (current) use of insulin; Z79.84 Long term (current) use of oral hypoglycemic drugs; Z85.828 Personal history of other malignant neoplasm of skin; Z83.3 Family history of diabetes mellitus; Z82.49 Family history of ischemic heart disease and other diseases of the circulatory system; Z81.1 Family history of alcohol abuse and dependence; Z81.8 Family history of other mental and behavioral disorders; Z80.1 Family history of malignant neoplasm of trachea, bronchus and lung; Z80.49 Family history of malignant neoplasm of other genital organs; Z88.0 Allergy status to penicillin; Z88.8 Allergy status to other drugs, medicaments and biological substances; Z91.018 Allergy to other foods; Z79.1 Long term (current) use of non-steroidal anti-inflammatories (NSAID); Z79.51 Long term (current) use of inhaled steroids; Z79.899 Other long term (current) drug therapy
CPT/HCPCS: 36415; 36600; 71046; 80048; 80053; 82803; 83036; 83605; 84484; 85025; 87045; 87046; 87070; 87077; 87186; 87205; 87899; 93005; 94640; 99284; A9270-GY; J0360; J0456; J0696; J1650; J1815; J2543; J2920; J3535; J7512

== ENCOUNTER 2019-07-24 16:30 | Emergency (ER) | payer MEDICARE, MEDICAID ==
--- OUTSIDE RECORDS SUMMARY | 2019-07-24 16:47 | XMS REPORT | Continuity of Care Document ---
:1955 External Reference #:[id number] Author Name Tavo Silva M.D. Address [address] [place] [address] Care Team Providers Name Role Phone Ramírez Callaway DO Care Team Information Optical Store Manager [phone] [facility] Care Team Information Optical Store Manager Problems Description No Information Available Social History Type Date Description Comments Sex Unknown ETOH Use Denies alcohol use Tobacco Use Start: Unknown Heavy tobacco smoker (more than 10 cigarettes/day) Smoking Status Reviewed: 07/12/19 Heavy tobacco smoker (more than 10 cigarettes/day) Allergies, Adverse Reactions, Alerts Active Allergies Reaction Severity Comments Date Penicillin 10/12/2018 Peanut 10/12/2018 [place] Carbonate 10/12/2018 Medications Active Medications SIG Qnty Indications Ordering Provider Date Tobramycin-Dexamethason 1 drop three 5ml Rufus Pederson, OD 07/04/2019 e times a day both 0.3-0.1% Suspension eyes x 1 week, then d/c Incruse Ellipta Unknown 62.5mcg/Inh Aerosol Symbicort Ramírez Callaway, DO 160-4.5mcg/Act Aerosol Ventolin HFA Unknown 108(90Base) mcg/Act Aerosol Atorvastatin Calcium Unknown 40mg Tablets Haloperidol Unknown 10mg Tablets Lisinopril Ramírez Callaway, DO 20mg Tablets Escitalopram Oxalate Unknown 10mg Tablets Divalproex Sodium Unknown 250mg Tablets DR Metformin HCL Unknown 1000mg Tablets Basaglar Kwikpen Ramírez Callaway, DO 100Unit/ML Solution Pen-Inject Novolog Ramírez Callaway, DO 100Unit/ML Solution Allergy Relief D-24 Unknown 10-240mg Tablets ER 24HR Immunizations Description No Information Available Vital Signs Date Vital Result Comment 07/04/2019 3:31pm Intraocular Pressure Right Eye 17 mmHg Intraocular Pressure Left Eye 17 mmHg 01/01/2019 11:04am Intraocular Pressure Right Eye 15 mmHg Intraocular Pressure Left Eye 15 mmHg Results Description No Information Available Procedures Date Code Description Status 07/12/2019 30981 Eye Exam Est Intermediate Completed 02/08/2019 03711 Sensorimotor Examination W/Mult Measurements Ocular Completed Deviation Medical Devices Description No Information Available Encounters Type Date Location Provider Dx Diagnosis Office Visit 07/04/2019 Main Office Rufus Pederson, OD H10.45 Other chronic allergic 3:15p conjunctivitis 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 Plan of Treatment 07/12/2019 - Tavo Silva M.D.H50.15 Alternating exotropiaFollow up:to [place] Functional Status Description No Information Available Mental Status Description No Information Available Referrals Description No Information Available
--- OUTSIDE RECORDS SUMMARY | 2019-07-24 16:47 | XMS REPORT | Continuity of Care Document ---
:1955 External Reference #:[id number] Author Name Rufus Pederson, OD Address [address] [place] [address] Care Team Providers Name Role Phone Ramírez Callaway DO Care Team Information Senior Loan Processor [phone] [facility] Care Team Information Senior Loan Processor Problems Description No Information Available Social History Type Date Description Comments Sex Unknown ETOH Use Denies alcohol use Tobacco Use Start: Unknown Heavy tobacco smoker (more than 10 cigarettes/day) Smoking Status Reviewed: 07/04/19 Heavy tobacco smoker (more than 10 cigarettes/day) Allergies, Adverse Reactions, Alerts Active Allergies Reaction Severity Comments Date Penicillin 10/12/2018 Peanut 10/12/2018 [place] Carbonate 10/12/2018 Medications Active Medications SIG Qnty [...] Information Available Procedures Date Code Description Status 02/08/2019 78510 Sensorimotor Examination W/Mult Measurements Ocular Completed Deviation [...] M.D. 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 Plan of Treatment Future Appointment(s):07/12/2019 11:15 am - Tavo Silva M.D. at Main [id number]/04/2019 - Rufus Pederson, ODH10.45 Other chronic allergic qxqzvybbvkbxwrV02.125 Mechanical ectropion of left lower uzddjgT28.122 Mechanical ectropion of right lower zgtwfiA66.15 Alternating zjucqzysmL13.02A Squamous blepharitis right eye, upper and lower oirvtoyG20.02B Squamous blepharitis left eye, upper and lower eyelids Functional Status Description No Information Available Mental Status Description No Information Available Referrals Description No Information Available
--- OUTSIDE RECORDS SUMMARY | 2019-07-24 16:48 | XMS REPORT | Summary of Care ---
:1955 Author Organization [facility] Address [address] [place] [address] Care Team Providers Name Role Phone Ramírez Callaway DO Primary Care Provider Reason for Visit Reason Comments Transitional Care Management here for f[place]u [place] [facility] [place]; question using spiriva instaed of combivent. Medication Check question if can d/c slow mag Encounter Details Date Type Department Care Team Description 06/12/2019 Office Visit [facility] Ramírez Callaway DO Aspiration pneumonia, unspecified aspiration pneumonia type, unspecified laterality, unspecified part of lung (HCC) (Primary Dx); Practice [address] Oral phase dysphagia; [address] [place] [address] COPD exacerbation (HCC); [place] [address] of the chest [phone] Allergies Active Allergy Reactions Severity Noted Date Comments [place] GI Reaction 08/28/2018 Peanuts Anaphylaxis 07/24/2018 Penicillins Hives 08/28/2018 documented as of this encounter (statuses as of 06/13/2019) Medications Medication Sig Dispensed Refills Start Date End Date Status divalproex sodium Take 250 mg by 0 Active (DEPAKOTE) 250 MG mouth THREE Oral Tab EC TIMES DAILY. escitalopram Take 10 mg by 0 Active (LEXAPRO) 10 MG Oral mouth DAILY. Tab B Complex-C (SUPER B Take by mouth. 0 Active COMPLEX/VITAMIN C PO) haloperidol (HALDOL) Take 10 mg by 0 Active 10 MG Oral Tab mouth EVERY BEDTIME. Fluticasone Tovey in nose. 0 Active Propionate (FLONASE NA) hydrocortisone Thin layer on 1 Tube 0 08/28/2018 Active (HYTONE) 1 % Apply hands affected externally area. No more CreamIndications: than 1 week Dry skin dermatitis Lancets Does not by Does not 60 Each 3 12/20/2018 Active apply Misc apply route TWICE DAILY. Brand:generic Dx: diabetes Test Blood Glucose 2 time(s) A DAY LISPRO insulin, Inject 2-4 5 mL 0 01/09/2019 Active RAPID - Acting, Units beneath (HUMALOG) 100 the skin UNIT/ML Subcutaneous DIRECTED. 2 Solution units for >300, 4 units >400 Insulin Pen Needle 300 Strips by 300 Each 3 01/22/2019 Active (PEN NEEDLES) 31G X Does not apply 5 MM Does not apply route TWICE Misc DAILY. insulin aspart, Inject 2-4 3 mL 0 01/23/2019 Active RAPID - Acting, Units beneath (NOVOLOG) 100 the skin FOUR UNIT/ML Subcutaneous TIMES DAILY - Solution BEFORE MEALS & NIGHTLY. 2 units for >300, 4 units >400 INCRUSE ELLIPTA 62.5 USE 1 30 Each 3 02/11/2019 Active MCG/INH Inhalation INHALATION BY AEROSOL POWDER, MOUTH EVERY DAY BREATH ACTIVATED albuterol 3 mL by 360 mg 0 02/28/2019 Active (PROVENTIL, Inhalation-SVN VENTOLIN) (2.5 route EVERY SIX MG/3ML) 0.083% HOURS NEEDED Inhalation Nebu (shortness of SolnIndications: breath, cough Chronic obstructive or wheeze). pulmonary disease, unspecified COPD type (HCC), Asthma, unspecified asthma severity, unspecified whether complicated, unspecified whether persistent lisinopril TAKE ONE TABLET 90 Tab 0 03/26/2019 Active (PRINIVIL, ZESTRIL) BY MOUTH ONCE 20 MG Oral DAILY TabIndications: Hypertension, unspecified type budesonide-formotero Take 2 INHL by 10.2 g 12 03/27/2019 Active l fumarate inhalation (SYMBICORT) 160-4.5 TWICE DAILY. MCG/ACT Inhalation Aerosol ipratropium-albutero Take 1 Puff by 1 Inhaler 45 04/05/2019 Active l (COMBIVENT inhalation RESPIMAT) 20-100 EVERY SIX HOURS MCG/ACT Inhalation NEEDED Aero Soln (shortness of breath). generic metFORMIN HCL 1000 TAKE ONE TABLET 180 Tab 0 04/17/2019 Active MG Oral Tab BY MOUTH TWO TIMES DAILY Glucose Blood In 2 Strips by In 100 Each 3 04/20/2019 Active Vitro Strip Vitro route DAILY for 30 days. Dx Code: E11.9 Insulin Glargine 100 Inject 4-6 18 mL 1 05/06/2019 Active UNIT/ML Subcutaneous Units beneath Solution the skin Pen-injector DIRECTED. 7 unit in morning and 5 units in pm atorvastatin TAKE ONE TABLET 90 Tab 1 05/20/2019 Active (LIPITOR) 40 MG Oral BY MOUTH ONCE Tab DAILY Albuterol Sulfate Take by 0 Active (VENTOLIN HFA IN) inhalation. magnesium chloride Take 1 Tab by 60 Tab 0 09/19/2018 Discontinued (SLOW MAG) 64 MG mouth DAILY. 9 Oral Tab EC nicotine transdermal Place 1 Patch 42 Patch 0 11/29/2018 Discontinued patch-daily onto skin 9 (NICODERM) 21 DAILY. MG/24HR Transdermal PATCH 24 HRIndications: Smoking trying to quit VENTOLIN HFA 108 (90 INHALE 2 PUFFS 72 g 1 03/13/2019 Discontinued Base) MCG/ACT EVERY FOUR 9 Inhalation Aero HOURS NEEDED SolnIndications: (SHORTNESS OF Chronic obstructive BREATH, COUGH pulmonary disease, OR WHEEZE). unspecified COPD type (HCC) documented as of this encounter (statuses as of 06/13/2019) Active Problems Problem Noted Date Asthma HTN (hypertension) Type 2 diabetes mellitus COPD (chronic obstructive pulmonary disease) documented as of this encounter (statuses as of 06/13/2019) Immunizations Name Administration Dates Next Due Influenza (IM) Preservative Free 06/12/2019, 12/18/2018 PNEUMOCOCCAL POLYSACCHARIDE VACCINE 12/18/2018 documented as of this encounter Social History Tobacco Use Types Packs/Day Years Used Date Current Every Day Smoker 1 35 Smokeless Tobacco: Never Used Alcohol Use Drinks/Week oz/Week Comments No Sex Assigned at Date Recorded Not on file Job Start Date Occupation Industry Not on file Not on file Not on file Travel History Travel Start Travel End No recent travel history available. documented as of this encounter Last Filed Vital Signs Vital Sign Reading Time Taken Comments Blood Pressure 138/68 06/12/2019 4:17 PM EDT Pulse 61 06/12/2019 4:17 PM EDT Temperature - - Respiratory Rate - - Oxygen Saturation 94% 06/12/2019 4:17 PM EDT Inhaled Oxygen Concentration - - Weight 61.5 kg (135 lb 9.6 oz) 06/12/2019 4:17 PM EDT Height 167.6 cm (5' 6") 06/12/2019 4:17 PM EDT Body Mass Index 21.89 06/12/2019 4:17 PM EDT documented in this encounter Patient Instructions Patient InstructionsRamírez Callaway DO - 06/12/2019 4:20 PM EDTGoing forward to avoid aspirations again: pureed texture solids and honey thickened liquids with no straws Stop magnesium Albuterol or combivent as needed incruse and spiriva everyday inhalers documented in this encounter Progress Notes Ramírez Callaway DO - 06/12/2019 4:20 PM EDT PATIENT: Shaquille Malhotra : 1955 DATE OF SERVICE: 06/12/2019 CHIEF COMPLAINT: Chief Complaint Patient presents with Transitional Care Management here for f/u [place] [facility] [place]; question using spiriva instaed of combivent. Medication Check question if can d/c slow mag Subjective HISTORY OF PRESENT ILLNESS: Shaquille Malhotra is a 64-y.o. male. HPI Had aspiration pneumonia and copd exacerbation Swallow study shows oral dysphagia from prior intubation trauma likely per DC summary A particular diet given and he is following that very well without issues No more antibiotic or prednisone Back to usual medications and usual health Has quit smoking cold turkey CT scan for lung abnormalities was to be done 6 weeks from April 30 but never got done No fevers Breathing status at baseline Past Medical History: Diagnosis Date Asthma Bipolar 1 disorder (HCC) Cancer (HCC) left ear cancer COPD (chronic obstructive pulmonary disease) (HCC) Diabetic retinopathy (HCC) HTN (hypertension) Psychiatric problem Schizoaffective disorder (HCC) Type 2 diabetes mellitus (HCC) Family History Problem Relation Age of Onset Diabetes Mother Current Outpatient Medications Medication Sig albuterol (PROVENTIL, VENTOLIN) (2.5 MG/3ML) 0.083% Inhalation Nebu Soln 3 mL by Inhalation-SVN route EVERY SIX HOURS NEEDED (shortness of breath, cough or wheeze). Albuterol Sulfate (VENTOLIN HFA IN) Take by inhalation. atorvastatin (LIPITOR) 40 MG Oral Tab TAKE ONE TABLET BY MOUTH ONCE DAILY B Complex-C (SUPER B COMPLEX/VITAMIN C PO) Take by mouth. budesonide-formoterol fumarate (SYMBICORT) 160-4.5 MCG/ACT Inhalation Aerosol Take 2 INHL by inhalation TWICE DAILY. divalproex sodium (DEPAKOTE) 250 MG Oral Tab EC Take 250 mg by mouth THREE TIMES DAILY. escitalopram (LEXAPRO) 10 MG Oral Tab Take 10 mg by mouth DAILY. Fluticasone Propionate (FLONASE NA) Tovey in nose. Glucose Blood In Vitro Strip 2 Strips by In Vitro route DAILY for 30 days. Dx Code: E11.9 haloperidol (HALDOL) 10 MG Oral Tab Take 10 mg by mouth EVERY BEDTIME. hydrocortisone (HYTONE) 1 % Apply externally Cream Thin layer on hands affected area. No morethan 1 week INCRUSE ELLIPTA 62.5 MCG/INH Inhalation AEROSOL POWDER, BREATH ACTIVATED USE 1 INHALATION BY MOUTH EVERY DAY insulin aspart, RAPID - Acting, (NOVOLOG) 100 UNIT/ML Subcutaneous Solution Inject 2-4 Units beneath the skin FOUR TIMES DAILY - BEFORE MEALS &amp ; NIGHTLY. 2 units for >300, 4 units >400 Insulin Glargine 100 UNIT/ML Subcutaneous Solution Pen-injector Inject 4- 6 Units beneath the skin DIRECTED. 7 unit in morning and 5 units in pm Insulin Pen Needle (PEN NEEDLES) 31G X 5 MM Does not apply Misc 300 Strips by Does not apply route TWICE DAILY. ipratropium-albuterol (COMBIVENT RESPIMAT) 20-100 MCG/ACT Inhalation Aero Soln Take 1 Puff byinhalation EVERY SIX HOURS NEEDED (shortness of breath). generic Lancets Does not apply Misc by Does not apply route TWICE DAILY. Brand: generic Dx: diabetesTest Blood Glucose 2 time(s) A DAY lisinopril (PRINIVIL, ZESTRIL) 20 MG Oral Tab TAKE ONE TABLET BY MOUTH ONCE DAILY LISPRO insulin, RAPID - Acting, (HUMALOG) 100 UNIT/ML Subcutaneous Solution Inject 2-4 Units beneath the skin DIRECTED. 2 units for >300, 4 units >400 metFORMIN HCL 1000 MG Oral Tab TAKE ONE TABLET BY MOUTH TWO TIMES DAILY No current facility-administered medications for this visit. Allergies Allergen Reactions [place] Carbonate [[place]] GI Reaction Peanuts Anaphylaxis Penicillins Hives Social History Socioeconomic History Marital status: Single Spouse name: Not on file Number of children: Not on file Years of education: Not on file Highest education level: Not on file Occupational History Not on file Social Needs Financial resource strain: Not on file Food insecurity: Worry: Not on file Inability: Not on file Transportation needs: Medical: Not on file Non-medical: Not on file Tobacco Use Smoking status: Current Every Day Smoker Packs/day: 1.00 Years: 35.00 Pack years: 35.00 Smokeless tobacco: Never Used Substance and Sexual Activity Alcohol use: No Drug use: No Sexual activity: Never Lifestyle Physical activity: Days per week: Not on file Minutes per session: Not on file Stress: Not on file Relationships Social connections: Talks on phone: Not on file Gets together: Not on file Attends jew service: Not on file Active member of club or organization: Not on file Attends meetings of clubs or organizations: Not on file Relationship status: Not on file Intimate partner violence: Fear of current or ex partner: Not on file Emotionally abused: Not on file Physically abused: Not on file Forced sexual activity: Not on file Other Topics Concern Back Care Not Asked Bike Helmet Not Asked Blood Transfusions Not Asked Caffeine Concern Not Asked Exercise Not Asked Hobby Hazards Not Asked International Travel Not Asked Service Not Asked Occupational Exposure Not Asked Seat Belt Not Asked Self-Exams Not Asked Sleep Concern Not Asked Special Diet Not Asked Stress Concern Not Asked Weight Concern Not Asked Social History Narrative half-way disability due to psychiatric illness Sister is guardian REVIEW OF SYSTEMS: Review of Systems Constitutional: Negative for chills, diaphoresis and fever. Respiratory: Positive for cough (chronic) and wheezing (chronic). Negative for hemoptysis. Cardiovascular: Negative for chest pain and palpitations. Gastrointestinal: Negative for abdominal pain. Neurological: Negative for dizziness. Objective PHYSICAL EXAM: VITALS: BP 138/68 (BP Location: Left arm, Patient Position: Sitting) | Pulse 61 | Ht 5' 6" (1.676m) | Wt 135 lb 9.6 oz (61.5 kg) | SpO2 94% | BMI 21.89 kg/m Body mass index is 21.89 kg/m. Physical Exam Constitutional: He appears well-nourished. No distress. HENT: Head: Normocephalic and atraumatic. Mouth/Throat: Oropharynx is clear and moist. No oropharyngeal exudate. Eyes: Conjunctivae are normal. Right eye exhibits no discharge. Left eye exhibits no discharge. No scleral icterus. Cardiovascular: Normal rate and regular rhythm. No lower extremity edema Pulmonary/Chest: Effort normal. No respiratory distress. He has wheezes ( expiratory - baseline). Skin: He is not diaphoretic. ASSESSMENT / IMPRESSION: ICD-9-CM ICD-10-CM 1. Aspiration pneumonia, unspecified aspiration pneumonia type, unspecified laterality, unspecified part of lung ([facility]) 507.0 J69.0 2. Oral phase dysphagia 787.21 R13.11 3. COPD exacerbation ([facility]) 491.[address] of the chest 793.2 R93.89 Plan With this pneumonia, I think ct follow up will be obscured by this infection. I told sister to contact Dr Ordonez office who is following the case and likely they will suggest 6 week wait from now for repeat Ct chest. But final call with pulmonary. He is following pureed diet to avoid aspirations and has no troubles Congratulated him on quitting smoking. He may join a smoking cessation group too which I think is a good idea. TCM Statement. Review of the hospitalization: I am seeing for transition of care following hospitalization. The date of discharge was: 06/10/19 The discharge diagnosis was Aspiration pneumonia. I reviewed the discharge summary, discharge instructions, and pertinent additional documentation obtained during hospitalization. I reconciled the medications. I also reviewed the Transition of Care documentation done by staff. The tests that were not available at the time of discharge were reviewed. Additional tests which are not yet available include: none Coordination of care. - I am satisfied that appropriate referrals are in place to deal with the problems identified during hospitalization, and that the patient has adequate community resources and support in place. - Additional testing related to hospitilization was requested today: no See orders. I confirmed the patient's understanding of the diagnosis and plan of care. Specific education that was provided today: Patient Instructions Going forward to avoid aspirations again: pureed texture solids and honey thickened liquids with no straws Stop magnesium Albuterol or combivent as needed incruse and spiriva everyday inhalers The current and discharge medications were reconciled by me, today The source document was hospital discharge summary Author: Ramírez Callaway DO 06/13/2019 08:23 documented in this encounter Plan of Treatment Date Type Specialty Care Team Description 08/14/2019 Office Visit Family Practice Ramírez Callaway DO [address] [place] [address] [phone] Health Maintenance Due Date Last Done Comments MEDICARE ANNUAL WELLNESS 1955 VISIT COLONOSCOPY SCREENING 2007 ZOSTER IMMUNIZATION SERIES (1 2007 of 2) HEMOGLOBIN A1C 07/06/2019 04/05/2019, 12/18/2018, 08/28/2018 FOOT EXAM 12/19/2019 12/18/2018, 12/18/2018 LUNG CANCER SCREENING 04/16/2020 04/16/2019 LIPID DISORDER SCREENING 05/20/2020 05/20/2019, 08/28/2018 Diabetic Eye Exam 10/12/2020 10/12/2018 DEPRESSION SCREENING 08/28/2025 Postponed from 1969 (Other) HEPATITIS C SCREENING Completed 08/28/2018 PNEUMOCOCCAL 0-64 YRS Completed 12/18/2018 INFLUENZA VACCINE Completed 06/12/2019, 12/18/2018 HPV IMMUNIZATION SERIES Aged Out No longer eligible based on patient's age to complete this topic MENINGOCOCCAL VACCINE IMM Aged Out No longer eligible based on patient's age to complete this topic documented as of this encounter Goals Goal Patient Goal Associated Recent Patient-Stated? Author Type Problems Progress Blood Pressure Blood Pressure 138/68 No Ramírez Callaway < 140/90 (06/12/2019 DO Elyssa 4:17 PM EDT) Note: This is an individualized treatment (blood pressure) goal for Shaquille Malhotra: Displayed above (on the left) is your goal for blood pressure control. Your most recent blood pressure is also shown above, on the right. You should try to achieve blood pressures that are lower than your goal listed above (on the left). Smoking Cessation COPD No Ramírez Callaway DO Note: This is an individualized treatment (COPD) goal for Shaquille Malhotra: Quit smoking immediately! Your provider has information and resources that may help you to quit. Depression screen (PHQ-9) total score < 5 Depression No Ramírez Callaway DO Note: This is an individualized treatment (depression) goal for Shaquille Malhotra: Displayed above is your goal for a depression screening (PHQ-9) score that would indicate good control of your depression. Glycohemoglobin A1c < 7.0 Diabetes 7.5 (04/05/2019 9:17 AM No Ramírez Callawya DO EDT) Note: This is an individualized treatment (diabetes control, HgbA1C) goal for Shaquille Malhotra: Displayed above is your progress towards your HgbA1C goal. Your goal is shown above (on the left); your most recent HgbA1C is shown on the right. Note that lower numbers are better. Keep immunizations current Lifestyle Ramírez Ray DO Note: This is an individualized lifestyle goal for Shaquille Malhotra: Please be sure to keep up-to-date on recommended immunizations. For example, this would include a yearly influenza vaccine. Immunization status can be seen by looking at the Health Maintenance sections of your [facility], Plan of Care, and any After Visit Summaries. Keep a regular sleep schedule Lifestyle Ramírez Ray DO Note: This is an individualized lifestyle goal for Shaquille Malhotra: Please maintain a regular sleep schedule. This may help with some symptoms of depression. Take all prescribed medications as directed Self-management Ramírez Ray DO Note: This is an individualized self-management goal for Shaquille Malhotra: Please take all prescribed medications as directed. 1. Do not skip doses. If you cannot afford your medications, talk with your doctor. 2. Use a pill reminder system such as a pill box if needed. Your pharmacist can help you with this. 3. Contact your Pharmacy 5 days before your medication runs out. If you cannot take your medications for any reasons, talk with your doctor. 4. Please bring all of your medication bottles and inhalers (or a list of all your medications/inhalers) with you to every visit. Potential barriers to meeting all of your care plan goals will continue to be addressed on an ongoing basis. documented as of this encounter Results Not on filedocumented in this encounter Visit Diagnoses Diagnosis Aspiration pneumonia, unspecified aspiration pneumonia type, unspecified laterality, unspecified part of lung (HCC) - Primary Oral phase dysphagia Dysphagia, oral phase COPD exacerbation (HCC) Obstructive chronic bronchitis with exacerbation Abnormal CT of the chest Nonspecific (abnormal) findings on radiological and other examination of other intrathoracic organs documented in this encounter Insurance Payer Benefit Plan / Subscriber ID Effective Dates Phone Address Type Group MEDICARE MEDICARE PART A xxxxxxxxxxx 1982-Present Medicare & B MEDICAID [facility] xxxxxxxx 2018-Present Medicaid [place] MED[place]ID documented as of this encounter
[2019-07-24] MEDS: Albuterol/Ipratropium NEB.SOL* Albuterol 2.5 MG/Ipratropium 0.5 MG 3 ML INH ONE (18:02)
--- NOTE | 2019-07-24 18:12 | ED ---
Shortness of Breath - HPI Summary HPI Summary: Pt is a 64 y/o M w hx COPD and eczema presenting to the ED with a chief complaint of shortness of breath for one day. The pt has asthma, and states he uses his albuterol inhaler more than he should, so he tends to run out of it very quickly, before he can have a refill of the medication. He ran out about 1 week ago. When he runs out of his medications, he becomes very anxious, which in turn causes shortness of breath, coughing, and itching of his eczema. Patient states he tried to fill his medications the pharmacy but was unable because of his insurance but he can pick it up Monday. Patient denies chest pain, fevers, productive cough. Patient reports that he has triamcinolone cream for his eczema home. - History of Current Complaint Chief Complaint: EDShortnessOfBreath Time Seen by Provider: 07/24/19 17:23 Hx Obtained From: Patient Onset/Duration: Sudden Onset, Lasting Hours, Still Present Timing: Constant Current Severity: Moderate Dyspnea At: Rest Aggravating Factors: Nothing Alleviating Factors: Bronchodilators Associated Signs & Symptoms: Cough (Nonproductive) - Allergy/Home Medications Allergies/Adverse Reactions: Allergies Allergy/AdvReac Type Severity Reaction Status Date / Time nut - unspecified Allergy Severe Anaphylatic Verified 07/24/19 16:35 Shock lithium Allergy Intermediate Kidney Verified 07/24/19 16:35 Scarring Penicillins Allergy Hives Verified 07/24/19 16:35 Home Medications: Home Medications Albuterol 2.5MG/3ML (0.083%)* [Ventolin 2.5 MG/3 ML NEB.JACOBO*] 2.5 mg INH Q6H PRN 07/24/19 [History Confirmed 07/24/19] Escitalopram * [Lexapro 10 mg (NF)] 10 mg PO DAILY 07/24/19 [History Confirmed 07/24/19] Fluticasone NASAL SPRAY 50MCG* [Flonase NASAL SPRAY 50MCG*] 2 spray BOTH NARES DAILY 07/24/19 [History Confirmed 07/24/19] Haloperidol TAB* [Haldol TAB*] 10 mg PO BEDTIME 07/24/19 [History Confirmed ] Hydrocortisone 1% CREAM* [Hytone Cream 1%*] 1 applic TOPICAL BID 07/24/19 [ History Confirmed 07/24/19] Lisinopril TAB* [Prinivil TAB*] 20 mg PO DAILY 07/24/19 [History Confirmed 07/24] metFORMIN* [Glucophage 500 MG TAB *] 500 mg PO BID 07/24/19 [History Confirmed 07/24/19] PMH/Surg Hx/FS Hx/Imm Hx Previously Healthy: Yes Endocrine/Hematology History: Reports: Hx Diabetes - on oral medication Denies: Hx Thyroid Disease Cardiovascular History: Reports: Hx Hypertension Denies: Other Cardiovascular Problems/Disorders Respiratory History: Reports: Hx Asthma, Hx Chronic Obstructive Pulmonary Disease (COPD), Other Respiratory Problems/Disorders - Heavy smoker-1 ppd GI History: Denies: Hx Ulcer, Other GI Disorders History: Reports: Other Problems/Disorders - Frequent urination Musculoskeletal History: Denies: Other Musculoskeletal History Sensory History: Reports: Hx Cataracts - Bilateral Denies: Hx Contacts or Glasses, Hx Hearing Aid Opthamlomology History: Reports: Hx Cataracts - Bilateral Denies: Hx Contacts or Glasses Neurological History: Reports: Other Neuro Impairments/Disorders - Schizoaffective disorder Psychiatric History: Reports: Hx Anxiety, Hx Depression, Hx Bipolar Disorder - Cancer History Cancer Type, 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 skin graft leg. cataracts. 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 Denies: Hx Hepatitis, Hx Human Immunodeficiency Virus (HIV), Traveled Outside the [place] in Last 30 Days - Family History Known Family History: Positive: Hypertension, Diabetes - Social History Alcohol Use: Rare Hx Substance Use: No Substance Use Type: Reports: None Hx Tobacco Use: Yes Smoking Status (MU): Heavy Every Day Tobacco Smoker Type: Cigarettes Amount Used/How Often: 1-2 ppd for 40 yrs Have You Smoked in the Last Year: Yes Review of Systems Positive: Shortness Of Breath, Cough Positive: Rash - eczema, Other - pruritus Positive: Anxious All Other Systems Reviewed And Are Negative: Yes Physical Exam - Summary Physical Exam Summary: Constitutional: Well-developed, Well-nourished, Alert. (-) Distressed Skin: Warm, Dry. Excoriations diffusely to arms and R neck. L face HENT: Normocephalic, L ear deformity. Eyes: Conjunctiva normal Neck: Musculoskeletal ROM normal neck. (-) JVD, (-) Stridor, (-) Nuchal rigidity Cardio: Rhythm regular, rate normal, Heart sounds normal; Intact distal pulses; Radial pulses are 2+ and symmetric. (-) Murmur Pulmonary/Chest wall: Easy WOB on RA, mild expiratory wheezing. Abd: Soft, (-) tenderness, (-) Distension, (-) Guarding, (-) Rebound Musculoskeletal: (-) Edema Lymph: (-) Cervical adenopathy Neuro: Alert, Oriented x3 Psych: Mood and affect Normal Triage Information Reviewed: Yes Vital Signs On Initial Exam: Initial Vitals Temp Pulse Resp BP Pulse Ox 97.9 F 78 16 194/106 92 07/24/19 16:32 07/24/19 16:32 07/24/19 16:32 07/24/19 16:32 07/24/19 16:32 Vital Signs Reviewed: Yes Procedures - Sedation Patient Received Moderate/Deep Sedation with Procedure: No Diagnostics - Vital Signs Vital Signs Temp Pulse Resp BP Pulse Ox 07/24/19 17:03 183 71 07/24/19 16:52 63 95 07/24/19 16:32 97.9 F 78 16 194/106 92 - Laboratory Lab Statement: Any lab studies that have been ordered have been reviewed, and results considered in the medical decision making process. - Radiology CXR Radiology Interpretation Completed By: Radiologist Summary of Radiographic Findings: THIS X-RAY FINDINGS ARE MOST CONSISTENT WITH SMALL RIGHT PLEURAL EFFUSION WITH ADJACENT COMPRESSIVE ATELECTASIS OF THE RIGHT LOWER LOBE SIMILAR IN APPEARANCE TO THE 2018 CHEST X-RAY. ED physician has reviewed this report. - EKG 1751 Cardiac Rate: Bradycardia - 58bpm EKG Rhythm: Sinus Bradycardia ST Segment: Normal Ectopy: None Summary of EKG Findings: EKG at 1751 shows sinus bradycardia at 58bpm with T wave inversion in aVL, nml axis, nml intervals. No STEMI. No acute changes. ED physician has reviewed and interpreted this report. Course/Dx - Course Course Of Treatment: 64 y/o male w hx of COPD and eczema p/w cough and rash. - PE w mild wheezing, easy WOB on RA. CXR similar to prior, feels better w one neb , 94% on RA. No infectious symptoms. Given steroids here for eczema, has triamcinoline cream at home. - inhalers sent to pharmacy. - -Based on my eval today, no evidence of end organ damage from hypertension. - no pulm edema on XR, cough 2/2 COPD, no chest pain, no EUGENE, neuro exam non-focal. Recommendations for BP management: -The pt likely suffers from essential hypertension. -In the absence of a hypertensive emergency, which the pt does not have, there is no indication to aggressively treat her elevated blood pressure, even when it approaches the systolic ~180 range. - Patient will take home BP meds. - Diagnoses Provider Diagnoses: COPD (chronic obstructive pulmonary disease), Eczema Discharge ED - Sign-Out/Discharge Documenting (check all that apply): Patient Departure - Discharge Plan Condition: Stable Disposition: HOME Prescriptions: RX: Albuterol HFA INHALER* [Ventolin HFA Inhaler*] 2 puff INH Q4H PRN 30 Days # 1 mdi PRN Reason: Wheezing Budesonide/Formote 160/4.5(NF) [Symbicort 160/4.5 (NF)] 1 puff INH BID 30 Days # 1 mdi Patient Education Materials: Eczema (ED), COPD (Chronic Obstructive Pulmonary Disease) (ED) Referrals: Ramírez Callaway DO [Primary Care Provider] - Additional Instructions: You were seen in the emergency department for cough and eczema. Please refill your inhaler. If any studies were not completed at the time of discharge you will be called with the relevant results. Please follow up with your primary care doctor in next 2-3 days and return to emergency department for worsening or concerning symptoms. It was a pleasure taking care of you today. - Billing Disposition and Condition Condition: STABLE Disposition: Home - Attestation Statements Document Initiated by Toñaibjonathan: Yes Documenting Scribe: Connie Gonsalez Provider For Whom Emmanuel is Documenting (Include Credential): Andres Guerrero MD. Scribe Attestation: Connie Gerardo, yolieed for Andres Guerrero MD. on 07/24/19 at 1913. Scribe Documentation Reviewed: Yes Provider Attestation: The documentation as recorded by the scribe, Connie Gonsalez accurately reflects the service I personally performed and the decisions made by me, Andres Guerrero MD. Status of Scribe Document: Viewed
[2019-07-24] MEDS: Dexamethasone TAB* 4 MG PO ONE (18:23)
[2019-07-24 19:22] VITALS: BP 188/82
[2019-07-24 20:32] LABS: HIV 4th Generation Nonreactive (Nonreactive)
[2019-07-24 20:37] LABS: Hepatitis C Antibody Negative (Negative)
== END 2019-07-24 19:24 | disposition home or self-care (01) ==
LOC: ED 16:30
DX: J44.9 Chronic obstructive pulmonary disease, unspecified (principal); L30.9 Dermatitis, unspecified; E11.9 Type 2 diabetes mellitus without complications; I10 Essential (primary) hypertension; F17.210 Nicotine dependence, cigarettes, uncomplicated; Z79.84 Long term (current) use of oral hypoglycemic drugs; Z79.899 Other long term (current) drug therapy; Z88.0 Allergy status to penicillin; Z88.8 Allergy status to other drugs, medicaments and biological substances
CPT/HCPCS: 36415; 71046; 86803; 87389; 93005; 99283; A9270-GY; J8540

== ENCOUNTER 2019-10-21 18:41 | Emergency (ER) | payer MEDICARE, MEDICAID ==
[2019-10-21] MEDS ORDERED: Albuterol/Ipratropium NEB.SOL* Albuterol 2.5 MG/Ipratropium 0.5 MG 3 ML INH ONE (19:01)
[2019-10-21] MEDS ORDERED: methylPREDNISolone 125 MG* 2 ML VIAL IV ONE (19:01)
--- NOTE | 2019-10-21 19:05 | ED ---
Respiratory - HPI Summary HPI Summary: 64 year old male presents to the ED with a chief complaint of respiratory illness starting a week ago. In June 2019, patient was admitted for a week due to COPD exacerbation. Patient has had intermittent respiratory issues since then. Last week he had a lung infection and took a full course of doxycycline for it. Patient reports that he still has fatigue, SOB, wheezing and coughing after the full course. He lives in a house with 9 others who are also sick with respiratory infections. Patient is a current heavy cigarette smoker. He has COPD , DM, and asthma. Patient has a nebulizer at home that provides temporary relief of his symptoms. - History of Current Complaint Chief Complaint: EDUpperRespComplaint Stated Complaint: LUNG INFECTION/SOB PER PT Time Seen by Provider: 10/21/19 18:50 Hx Obtained From: Patient Onset/Duration: Lasting Weeks, Still Present Pain Intensity: 0 Character: Wheezing, Cough (Productive), Dyspnea at Rest Sputum Amount: Moderate Aggravating Factor(s): URI Alleviating Factor(s): Neb. Bronchodilators (Frequency Of Use) - At home as needed Associated Signs and Symptoms: SOB, URI, Wheezing - Allergy/Home Medications Allergies/Adverse Reactions: Allergies Allergy/AdvReac Type Severity Reaction Status Date / Time nut - unspecified Allergy Severe Anaphylatic Verified 10/21/19 18:47 Shock lithium Allergy Intermediate Kidney Verified 10/21/19 18:47 Scarring Penicillins Allergy Hives Verified 10/21/19 18:47 Home Medications: Home Medications Divalproex DR TAB(*) [Cody BETH(*)] 1,000 mg PO BEDTIME 10/21/19 [History Confirmed 10/21/19] Divalproex DR TAB(*) [Cody BETH(*)] 500 mg PO QAM 10/21/19 [History Confirmed 10/21/19] Insulin Glargine,Hum.rec.anlog [Basaglar Kwikpen] 5 unit SUBCUT QPM 10/21/19 [ History Confirmed 10/21/19] Insulin Glargine,Hum.rec.anlog [Basaglar Kwikpen] 7 unit SUBCUT QAM 10/21/19 [ History Confirmed 10/21/19] metFORMIN* [Glucophage 1000 MG TAB *] 1,000 mg PO BID 10/21/19 [History Confirmed 10/21/19] PMH/Surg Hx/FS Hx/Imm Hx Endocrine/Hematology History: Reports: Hx Diabetes - on oral medication Denies: Hx Thyroid Disease Cardiovascular History: Reports: Hx Hypertension Denies: Other Cardiovascular Problems/Disorders Respiratory History: Reports: Hx Asthma, Hx Chronic Obstructive Pulmonary Disease (COPD), Other Respiratory Problems/Disorders - Heavy smoker-1 ppd GI History: Denies: Hx Ulcer, Other GI Disorders History: Reports: Other Problems/Disorders - Frequent urination Musculoskeletal History: Denies: Other Musculoskeletal History Sensory History: Reports: Hx Cataracts - Bilateral Denies: Hx Contacts or Glasses, Hx Hearing Aid Opthamlomology History: Reports: Hx Cataracts - Bilateral Denies: Hx Contacts or Glasses Neurological History: Reports: Other Neuro Impairments/Disorders - Schizoaffective disorder Psychiatric History: Reports: Hx Anxiety, Hx Depression, Hx Bipolar Disorder - Cancer History Cancer Type, 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 skin graft leg. cataracts. 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 Denies: Hx Hepatitis, Hx Human Immunodeficiency Virus (HIV), Traveled Outside the [place] in Last 30 Days - Family History Known Family History: Positive: Hypertension, Diabetes - Social History Alcohol Use: Rare Hx Substance Use: No Substance Use Type: Reports: None Hx Tobacco Use: Yes Smoking Status (MU): Heavy Every Day Tobacco Smoker Type: Cigarettes Amount Used/How Often: 1-2 ppd for 40 yrs Have You Smoked in the Last Year: Yes Review of Systems Negative: Fever Positive: Shortness Of Breath, Cough, Other - wheezing All Other Systems Reviewed And Are Negative: Yes Physical Exam - Summary Physical Exam Summary: VITAL SIGNS: Reviewed. GENERAL: Patient is a well-developed and nourished male who is lying comfortable in the stretcher. Patient is not in any acute respiratory distress. HEAD AND FACE: No signs of trauma. No ecchymosis, hematomas or skull depressions. No sinus tenderness. EYES: PERRLA, EOMI x 2, No injected conjunctiva, no nystagmus. EARS: Hearing grossly intact. Ear canals and tympanic membranes are within normal limits. Missing earlobe. MOUTH: Dry oral mucosa. NECK: Supple, trachea is midline, no adenopathy, no JVD, no carotid bruit, no c- spine tenderness, neck with full ROM. CHEST: Symmetric, no tenderness at palpation. LUNGS: Clear to auscultation bilaterally. Bilateral wheezing. CVS: Regular rate and rhythm, S1 and S2 present, no murmurs or gallops appreciated. ABDOMEN: Soft, non-tender. No signs of distention. No rebound, no guarding, and no masses palpated. Bowel sounds are normal. EXTREMITIES: FROM in all major joints, no edema, no cyanosis or clubbing. NEURO: Alert and oriented x 3. No acute neurological deficits. Speech is normal and follows commands. SKIN: Dry and warm. Triage Information Reviewed: Yes Vital Signs On Initial Exam: Initial Vitals Temp Pulse Resp BP Pulse Ox 99.1 F 75 19 147/71 89 10/21/19 18:42 10/21/19 18:42 10/21/19 18:42 10/21/19 18:42 10/21/19 18:42 Vital Signs Reviewed: Yes Procedures - Sedation Patient Received Moderate/Deep Sedation with Procedure: No Diagnostics - Vital Signs Vital Signs Temp Pulse Resp BP Pulse Ox 10/21/19 18:42 99.1 F 75 19 147/71 89 - Laboratory Result Diagrams: 10/21/19 19:02 10/21/19 19:02 Lab Statement: Any lab studies that have been ordered have been reviewed, and results considered in the medical decision making process. - Radiology CXR Radiology Interpretation Completed By: ED Physician Summary of Radiographic Findings: IMPRESSION: No acute processes. Pending official read. An ED physician has interpreted and reviewed this scan. - EKG 1917 Cardiac Rate: NL - 66 bpm EKG Rhythm: Sinus Rhythm ST Segment: Normal Ectopy: None Summary of EKG Findings: EKG at 1917 shows normal sinus rhythm at 66 bpm. No STEMI. Normal axis. Unchanged since 07/24/19. An ED physician has reviewed this EKG. Disposition - Course Assessment/Plan: 64 year old male presents to the ED with a chief complaint of respiratory illness starting several weeks ago. In June 2019, patient was admitted for a week due to COPD exacerbation. He also had a lung infection and took a full course of doxycycline for it. Patient reports that he still has fatigue, SOB, wheezing and coughing, regardless of the treatment. Patient is a current heavy cigarette smoker. He has COPD and asthma. Patient has a nebulizer at home that provides temporary relief of his symptoms. Blood work without a significant abnormality except for glucose of 152, BUN is 28, and CRP of 21.07. Chest x-ray shows no acute pathology. Influenza A and B is negative. In the ED course the patient was given a DuoNeb since that time. The patient is feeling better. I discussed all the findings and test results with the patient. Patient was instructed to return to the emergency room immediately if any of the symptoms return or worsen . Plan of care was discussed with the patient and understands and agrees. All questions were answered at patient satisfaction. There were no further complaints or concerns. Lung exam before discharge: CTA B/L. Good air exchange. No wheezing or crackles heard. CVS: S1 and S2 present. No murmurs appreciated. Patient is alert and oriented x 3. Patient is hemodynamically stable. Patient will be discharged home with follow up PCP in the next 2-3 days - Differential Dx - Cardiopulmonary Differential Diagnoses - Cardiopulmonary: Bronchitis, Exacerbation Of COPD, Influenza - Diagnoses Provider Diagnoses: COPD exacerbation Discharge ED - Sign-Out/Discharge Documenting (check all that apply): Patient Departure - discharge home - Discharge Plan Condition: Stable Disposition: HOME Patient Education Materials: COPD (Chronic Obstructive Pulmonary Disease) (ED) Referrals: Ramírez Callaway DO [Doctor of Osteopathy] - Additional Instructions: Follow up with your PCP in 2-3 days. Return to the Emergency Department if you experience new or worsened symptoms. - Billing Disposition and Condition Condition: STABLE Disposition: Home - Attestation Statements Document Initiated by Toñaibjonathan: Yes Documenting Scribe: Michael Rees Provider For Whom Emmanuel is Documenting (Include Credential): Kalen Rosales MD Scribe Attestation: Michael Gerardo, scribed for Kalen Rosales MD on 10/21/19 at 2122. Scribe Documentation Reviewed: Yes Provider Attestation: The documentation as recorded by the scribe, Michael Rees accurately reflects the service I personally performed and the decisions made by me, Kalen Rosales MD Status of Scribe Document: Viewed
[2019-10-21 19:16] LABS: Influenza A Molecular NEGATIVE (Negative); Influenza B Molecular NEGATIVE (Negative)
[2019-10-21 19:17] LABS: ABS Basophils 0.1 10^3/ul (0-0.2); ABS Eosinophils 0.2 10^3/ul (0-0.6); ABS Lymphocytes 2.9 10^3/ul (1.0-4.8); ABS Monocytes 1.2 10^3/ul (0-0.8); Hematocrit 42 % (42-52); Hemoglobin 14.2 g/dL (14.0-18.0); Lymphocyte % 31.1 %; Mean Corpuscular HGB Conc 34 g/dL (31-36); Mean Corpuscular Hemoglobin 33 pg (27-31); Mean Corpuscular Volume 98 fL (80-94); Mean Platelet Volume 7.9 fL (7.4-10.4); Platelet Count 229 10^3/uL (150-450); Red Blood Count 4.26 10^6 /uL (4.18-5.48); Red Cell Distribution Width 15 % (10-15); White Blood Count 9.4 10^3/uL (3.5-10.8)
--- OUTSIDE RECORDS SUMMARY | 2019-10-21 19:24 | XMS REPORT | Summary of Care ---
:1955 Author Organization [facility] Address [address] [place] [address] Care Team Providers Name Role Phone [place] Primary Care Provider Reason for Visit Reason Comments Sick pt left ear itching with redness, productive cough white/yellow, Skin Lesion pt concered about skins, pt concered about a blood clot on right arm Encounter Details Date Type Department Care Team Description 10/14/2019 Office Visit [facility] [place], COPD with acute exacerbation (HCC) (Primary Dx); Medicine [place] Dry skin dermatitis [address] [place], [place] [id number] [place] [address] [phone] Allergies Active Allergy Reactions Severity Noted Date Comments [place] GI Reaction 08/28/2018 Peanuts Anaphylaxis 07/24/2018 Penicillins Hives 08/28/2018 documented as of this encounter (statuses as of 10/14/2019) Medications Medication Sig Dispensed Refills Start End Date Status Date divalproex sodium Take 500 mg by 0 Active (DEPAKOTE) 250 MG mouth TWICE Oral Tab EC DAILY. escitalopram Take 10 mg by 0 Active (LEXAPRO) 10 MG mouth DAILY. Oral Tab B Complex-C (SUPER Take by mouth. 0 Active B COMPLEX/VITAMIN C PO) haloperidol Take 10 mg by 0 Active (HALDOL) 10 MG Oral mouth EVERY Tab BEDTIME. Fluticasone [place] in nose. 0 Active Propionate (FLONASE NA) Lancets Does not by Does not 60 Each 3 Active apply Misc apply route 9 TWICE DAILY. Brand:generic Dx: diabetes Test Blood Glucose 2 time(s) A DAY LISPRO insulin, Inject 2-4 5 mL 0 Active RAPID - Acting, Units beneath 9 (HUMALOG) 100 the skin UNIT/ML DIRECTED. 2 Subcutaneous units for >300, Solution 4 units >400 Insulin Pen Needle 300 Strips by 300 Each 3 Active (PEN NEEDLES) 31G X Does not apply 9 5 MM Does not apply route TWICE Misc DAILY. insulin aspart, Inject 2-4 3 mL 0 Active RAPID - Acting, Units beneath 9 (NOVOLOG) 100 the skin FOUR UNIT/ML TIMES DAILY - Subcutaneous BEFORE MEALS & Solution NIGHTLY. 2 units for >300, 4 units >400 Glucose Blood In 2 Strips by In 100 Each 3 Active Vitro Strip Vitro route 9 DAILY for 30 days. Dx Code: E11.9 Insulin Glargine Inject 4-6 18 mL 1 Active 100 UNIT/ML Units beneath 9 Subcutaneous the skin Solution DIRECTED. 7 Pen-injector unit in morning and 5 units in pm Albuterol Sulfate Take by 0 Active (VENTOLIN HFA IN) inhalation. lisinopril Take 1 Tab by 90 Tab 1 Active (PRINIVIL, ZESTRIL) mouth DAILY. 9 20 MG Oral TabIndications: Hypertension, unspecified type umeclidinium Take 1 INHL by 30 Each 3 Active bromide (INCRUSE inhalation 9 ELLIPTA) 62.5 DAILY. MCG/INH Inhalation AEROSOL POWDER, BREATH ACTIVATED ipratropium-albuter Take 1 Puff by 1 Inhaler 45 Active ol (COMBIVENT inhalation 9 RESPIMAT) 20-100 EVERY SIX HOURS MCG/ACT Inhalation NEEDED Aero Soln (shortness of breath). generic VENTOLIN HFA 108 USE TWO 72 g 1 Active (90 Base) MCG/ACT INHALATIONS 9 Inhalation Aero EVERY FOUR SolnIndications: HOURS NEEDED Chronic obstructive FOR SHORTNESS pulmonary disease, OF BREATH, unspecified COPD COUGH OR WHEEZE type (HCC) metFORMIN HCL 1000 TAKE ONE TABLET 180 Tab 0 Active MG Oral Tab BY MOUTH TWO 9 TIMES DAILY albuterol 3 mL by 360 mg 0 Active (PROVENTIL, Inhalation-SVN 9 VENTOLIN) (2.5 route EVERY SIX MG/3ML) 0.083% HOURS NEEDED Inhalation Nebu (shortness of SolnIndications: breath, cough Chronic obstructive or wheeze). pulmonary disease, unspecified COPD type (HCC), Asthma, unspecified asthma severity, unspecified whether complicated, unspecified whether persistent fexofenadine Take 1 Tab by 90 Tab 0 Active (TEO ALLERGY) mouth DAILY. 9 180 MG Oral Tab budesonide-formoter Take 2 INHL by 10.2 g 12 Active ol fumarate inhalation 9 (SYMBICORT) 160-4.5 TWICE DAILY. MCG/ACT Inhalation Aerosol atorvastatin TAKE ONE TABLET 90 Tab 1 Active (LIPITOR) 40 MG BY MOUTH ONCE 9 Oral Tab DAILY hydrocortisone Thin layer on 1 Tube 0 Active (HYTONE) 1 % Apply hands affected 0 externally area. No more CreamIndications: than 1 week Dry skin dermatitis doxycycline Take 100 mg by 14 Tab 0 Active (VIBRAMYCIN) 100 MG mouth TWICE 0 Oral DAILY. TabIndications: COPD with acute exacerbation (HCC) predniSONE Take 1 Tab by 5 Tab 0 Active (DELTASONE) 20 MG mouth DAILY. 0 Oral TabIndications: COPD with acute exacerbation (HCC) hydrocortisone Thin layer on 1 Tube 0 10/14/19 Discontinued (HYTONE) 1 % Apply hands affected 8 20 (Reorder) externally area. No more CreamIndications: than 1 week Dry skin dermatitis documented as of this encounter (statuses as of 10/14/2019) Active Problems Problem Noted Date Asthma HTN (hypertension) Type 2 diabetes mellitus COPD (chronic obstructive pulmonary disease) documented as of this encounter (statuses as of 10/14/2019) Immunizations Name Administration Dates Next Due Influenza [...] Sign Reading Time Taken Comments Blood Pressure 140/70 10/14/2019 3:29 PM EST Pulse 82 10/14/2019 3:29 PM EST Temperature 36.1 10/14/2019 3:29 PM EST C (97 F) Respiratory Rate - - Oxygen Saturation 92% 10/14/2019 3:29 PM EST Inhaled Oxygen Concentration - - Weight 59.4 kg (131 lb) 10/14/2019 3:29 PM EST Height 167.6 cm (5' 6") 10/14/2019 3:29 PM EST Body Mass Index 21.14 10/14/2019 3:29 PM EST documented in this encounter Progress Notes [place], [place] - 10/14/2019 3:20 PM EST PATIENT: Shaquille Malhotra : 1955 DATE OF SERVICE: 10/14/2019 CHIEF COMPLAINT: Chief Complaint Patient presents with Sick pt left ear itching with redness, productive cough white/yellow, Skin Lesion pt concered about skins, pt concered about a blood clot on right arm Subjective HISTORY OF PRESENT ILLNESS: Shaquille Malhotra is a 64-y.o. male. Shaquille Malhotra is a 64-y.o. male here for evaluation of productive cough. Onset of symptoms was 2 weeks ago, gradually worsening since that time. The cough is productive of green/yellow sputum, with wheezing, worsening over time and is aggravatedby unkown. Associated symptoms include sputum production. Patient does have a history of asthma. Patient does not have a history of environmental allergens. Patient does not have recent travel. Patient does have a history of smoking. Patient does not have a history of reflux. Patient does not have previous chest x-ray. Patient does not have had a PPD done. Patient also complains of a chronic rash on both of his hands that has progressively worsened over the years. He states that he usually has a cream that he places on his hands that improves the cracking and open sores on his hands but has not used any palliative recently. Patient has used hydrocortisone cream on the hands in visits prior with full improvement. He currently has no cortisone creams at home. Past Medical History: Diagnosis Date Asthma Bipolar [...] (DEPAKOTE) 250 MG Oral Tab EC Take 500 mg by mouth TWICE DAILY. doxycycline (VIBRAMYCIN) 100 MG Oral Tab Take 100 mg by mouth TWICE DAILY. escitalopram (LEXAPRO) 10 MG Oral Tab Take 10 mg by mouth DAILY. fexofenadine (TEO ALLERGY) 180 MG Oral Tab Take 1 Tab by mouth DAILY. Fluticasone Propionate (FLONASE NA) [place] in nose. Glucose Blood In Vitro Strip 2 Strips by In Vitro route DAILY for 30 days. Dx Code: E11.9 haloperidol (HALDOL) 10 MG Oral Tab Take 10 mg by mouth EVERY BEDTIME. hydrocortisone (HYTONE) 1 % Apply externally Cream Thin layer on hands affected area. No morethan 1 week insulin aspart, RAPID - Acting, (NOVOLOG) 100 [...] lisinopril (PRINIVIL, ZESTRIL) 20 MG Oral Tab Take 1 Tab by mouth DAILY. LISPRO insulin, RAPID - Acting, (HUMALOG) 100 UNIT/ML Subcutaneous Solution Inject 2-4 Units beneath the skin DIRECTED. 2 units for >300, 4 units >400 metFORMIN HCL 1000 MG Oral Tab TAKE ONE TABLET BY MOUTH TWO TIMES DAILY predniSONE (DELTASONE) 20 MG Oral Tab Take 1 Tab by mouth DAILY. umeclidinium bromide (INCRUSE ELLIPTA) 62.5 MCG/INH Inhalation AEROSOL POWDER, BREATH ACTIVATED Take 1 INHL by inhalation DAILY. VENTOLIN HFA 108 (90 Base) MCG/ACT Inhalation Aero Soln USE TWO INHALATIONS EVERY FOUR HOURS NEEDED FOR SHORTNESS OF BREATH, COUGH OR WHEEZE No current facility-administered medications for this visit. Allergies Allergen Reactions [place] Carbonate [[place]] GI Reaction Peanuts Anaphylaxis Penicillins Hives Social History Socioeconomic History Marital status: Single Spouse name: Not on file Number of children: Not on file Years of education: Not on file Highest education level: Not on file Occupational History Not on file Social Needs Financial resource strain: Not on file Food insecurity Worry: Not on file Inability: Not on file Transportation needs Medical: Not on file Non-medical: Not on file Tobacco Use Smoking status: Current Every Day Smoker Packs/day: 1.00 Years: 35.00 Pack years: 35.00 Smokeless tobacco: Never Used Substance and Sexual Activity Alcohol use: No Drug use: No Sexual activity: Never Lifestyle Physical activity Days per week: Not on file Minutes per session: Not on file Stress: Not on file Relationships Social connections Talks on phone: Not on file Gets together: Not on file Attends orthodox service: Not on file Active member of club or organization: Not on file Attends meetings of clubs or organizations: Not on file Relationship status: Not on file Intimate partner violence Fear of current or ex partner: Not [...] Weight Concern Not Asked Social History Narrative jail disability due to psychiatric illness Sister is guardian REVIEW OF SYSTEMS: Review of Systems Constitutional: Negative for fever, malaise/fatigue and weight loss. HENT: Negative for congestion, hearing loss, sinus pain, sore throat and tinnitus. Eyes: Negative for pain and discharge. Respiratory: Positive for cough, sputum production, shortness of breath and wheezing. Cardiovascular: Negative for chest pain, palpitations and leg swelling. Gastrointestinal: Negative for diarrhea, nausea and vomiting. Musculoskeletal: Negative for myalgias and neck pain. Skin: Positive for rash. Neurological: Negative for dizziness and headaches. Objective PHYSICAL EXAM: VITALS: BP 140/70 | Pulse 82 | Temp 97 F (36.1 C) | Ht 5' 6" (1.676 m) | Wt 131 lb (59.4 kg) | SpO2 92% | BMI 21.14 kg/m Body mass index is 21.14 kg/m. Physical Exam Vitals signs and nursing note reviewed. Constitutional: General: He is not in acute distress. HENT: Head: Normocephalic and atraumatic. Right Ear: Tympanic membrane and ear canal normal. Left Ear: Tympanic membrane and ear canal normal. Nose: No congestion. Mouth/Throat: Mouth: Mucous membranes are moist. Eyes: General: Right eye: No discharge. Left eye: No discharge. Neck: Musculoskeletal: No neck rigidity. Cardiovascular: Rate and Rhythm: Normal rate and regular rhythm. Heart sounds: No murmur. No friction rub. No gallop. Pulmonary: Effort: Pulmonary effort is normal. No respiratory distress. Breath sounds: No stridor. Wheezing present. No rhonchi or rales. Chest: Chest wall: No tenderness. Abdominal: General: Abdomen is flat. Bowel sounds are normal. Tenderness: There is no guarding. Lymphadenopathy: Cervical: No cervical adenopathy. Skin: General: Skin is warm and dry. Neurological: Mental Status: He is alert. I spent 25 minutes with the patient, greater than half of this in direct face to face counseling addressing the current condition and the plan of care. ASSESSMENT / IMPRESSION: ICD-9-CM ICD-10-CM 1. COPD with acute exacerbation ([facility]) 491.21 J44.1 doxycycline (VIBRAMYCIN) 100 MG Oral Tab predniSONE (DELTASONE) 20 MG Oral Tab XR CHEST 2 VIEW PA AND LATERAL (STANDARD) 2. Dry skin dermatitis 692.89 L85.3 hydrocortisone (HYTONE) 1 % Apply externally Cream Medications as prescribed. Chest x-ray to observe pathology. Follow up with me in 3 weeks to discuss course of treatment and diabetes. If things continue to worsen he should schedule a sooner follow up appointment or seek emergency room care if you have any concerns. Cortisone for the hands. Author: [place] Andrade 10/14/2019 17:15 documented in this encounter Plan of Treatment Date Type Specialty Care Team Description 10/29/2019 Lab Internal Medicine 11/05/2019 Office Visit Internal Medicine [place] [facility] [address] [place] [address] [phone] Name Type Priority Associated Diagnoses Date/Time XR CHEST 2 VIEW PA Imaging Routine COPD with acute 10/14/2019 4:24 PM AND LATERAL exacerbation (HCC) EST (STANDARD) Name Type Priority Associated Diagnoses Order Schedule XR CHEST 2 VIEW PA Imaging Routine COPD with acute Expected: 10/14/2019, AND LATERAL exacerbation (HCC) Expires: 10/13/2020 (STANDARD) Health Maintenance Due Date Last Done Comments MEDICARE ANNUAL WELLNESS 1955 VISIT DTaP/Tdap/Td Vaccines (1 - 1968 Tdap) Colonoscopy 2007 ZOSTER IMMUNIZATION SERIES 2007 (1 of 2) FOOT EXAM 12/19/2019 12/18/2018, 12/18/2018 HEMOGLOBIN A1C 01/29/2020 07/30/2019, 04/05/2019, 12/18/2018, Additional history exists LUNG CANCER SCREENING 07/30/2020 07/30/2019, 04/16/2019 LIPID DISORDER SCREENING 09/09/2020 09/09/2019, 08/28/2018 Diabetic Eye Exam 10/12/2020 10/12/2018, 10/12/2018 DEPRESSION SCREENING 08/28/2025 Postponed from 1969 (Other) HEPATITIS C SCREENING Completed 08/28/2018 PNEUMOCOCCAL 0-64 YRS Completed 12/18/2018 INFLUENZA VACCINE Completed 06/12/2019, 12/18/2018 HEPATITIS A IMMUNIZATION Aged Out No longer eligible SERIES based on patient's age to complete this topic HPV IMMUNIZATION SERIES Aged Out No longer eligible based on patient's age to complete this topic MENINGOCOCCAL VACCINE IMM Aged Out No longer eligible based on patient's age to complete this topic documented as of this encounter Goals Goal Patient Goal Associated Recent Patient-Stated? Author Type Problems Progress Blood Pressure Blood Pressure 140/70 Ramírez Ray < 140/90 (10/14/2019 DO Elyssa 3:29 PM EST) Note: This is an individualized treatment (blood pressure) goal for Shaquille Malhotra: Displayed above (on the left) is your goal for blood pressure control. Your most recent blood pressure is also shown above, on the right. You should try to achieve blood pressures that are lower than your goal listed above (on the left). Smoking Cessation COPD Ramírez Ray DO Note: This is an individualized treatment (COPD) goal for Shaquille Malhotra: Quit smoking immediately! Your provider has information and resources that may help you to quit. Depression screen (PHQ-9) total score < 5 Depression Ramírez Ray DO Note: This is an individualized treatment (depression) goal for Shaquille Malhotra: Displayed above is your goal for a depression screening (PHQ-9) score that would indicate good control of your depression. Glycohemoglobin A1c < 7.0 Diabetes 6.9 (07/30/2019 10:01 AM Ramírez Ray DO EDT) Note: This is an individualized [...] filedocumented in this encounter Visit Diagnoses Diagnosis Dry skin dermatitis Contact dermatitis and other eczema due to other specified agent COPD with acute exacerbation (HCC) Obstructive chronic bronchitis with exacerbation documented in this encounter Insurance Payer Benefit Plan / Subscriber ID Effective Dates Phone Address Type Group MEDICARE MEDICARE PART A xxxxxxxxxxx 1982-Present Medicare & B MEDICAID [facility] xxxxxxxx 2018-Present Medicaid [place] MEDICAID documented as of this encounter
[2019-10-21 19:31] LABS: Albumin 3.2 g/dL (3.2-5.2); BUN/Creatinine Ratio 28.3 (8-20); C Reactive Protein 21.07 mg/L (<8.01); Calcium 9.1 mg/dL (8.6-10.3); EGFR African American 92.7 (>60); EGFR Non-African American 76.6 (>60); Globulin 3.3 g/dL (2-4); Potassium 4.4 mmol/L (3.5-5.0); Total Bilirubin 0.3 mg/dL (0.2-1.0); Total Protein 6.5 g/dL (6.4-8.9)
[2019-10-21 21:24] VITALS: BP 159/96
== END 2019-10-21 21:33 | disposition home or self-care (01) ==
LOC: ED 18:41
DX: J44.1 Chronic obstructive pulmonary disease with (acute) exacerbation (principal); F17.210 Nicotine dependence, cigarettes, uncomplicated; J45.909 Unspecified asthma, uncomplicated; E11.9 Type 2 diabetes mellitus without complications; Z79.84 Long term (current) use of oral hypoglycemic drugs; I10 Essential (primary) hypertension; F41.9 Anxiety disorder, unspecified; F32.9 Major depressive disorder, single episode, unspecified
CPT/HCPCS: 36415; 71046; 80053; 83880; 85025; 86140; 87040; 93005; 96374; 99284; A9270-GY; J2930

== ENCOUNTER 2019-11-13 20:26 | Emergency (ER) | payer MEDICARE, MEDICAID ==
[2019-11-13 20:46] VITALS: BP 181/111
[2019-11-13] MEDS ORDERED: Bupivacaine 0.5% W/EPI SDV* 30 ML VIAL INJ ONE (20:48)
--- NOTE | 2019-11-13 20:52 | ED ---
Laceration/Wound HPI - HPI Summary HPI Summary: This pt is a 64 Y/O M presenting to [facility] after an ambulance was called to his group home after falling down 2 stairs and suffering an abrasion to his R knee which is rated a 9/10 in severity. He states that the pain was immediate. He denies any other pain and hitting his head on the ground. He denies any recent fevers, chills, N/V, or a headache. He has no alleviating factors. He states that movement of his R knee increases the pain. He has a PMHx of DM, HTN , and COPD. - History of Current Complaint Chief Complaint: Laceration to R knee Stated Complaint: RT KNEE PAIN PER EMS Time Seen by Provider: 11/13/19 20:43 Hx Obtained From: Patient Mechanism of Injury: Sharp/Blunt Trauma - fell down 2 stairs Aggravating: Movement Alleviating: Nothing Timing: Constant Onset Severity: Severe Current Severity: Severe Pain Intensity: 9 Pain Scale Used: 0-10 Numeric Associated Signs & Symptoms: Negative - fevers, chills, N/V, head injury, or a headache, Pain - Additional Pertinent History Primary Care Physician: [id number] - Allergy/Home Medications Allergies/Adverse Reactions: Allergies Allergy/AdvReac Type Severity Reaction Status Date / Time nut - unspecified Allergy Severe Anaphylatic Verified 10/21/19 18:47 Shock lithium Allergy Intermediate Kidney Verified 10/21/19 18:47 Scarring Penicillins Allergy Hives Verified 10/21/19 18:47 PMH/Surg Hx/FS Hx/Imm Hx Previously Healthy: Yes Endocrine/Hematology History: Reports: Hx Diabetes - on oral medication Denies: Hx Thyroid Disease Cardiovascular History: Reports: Hx Hypertension Denies: Other Cardiovascular Problems/Disorders Respiratory History: Reports: Hx Asthma, Hx Chronic Obstructive Pulmonary Disease (COPD), Other Respiratory Problems/Disorders - Heavy smoker-1 ppd GI History: Denies: Hx Ulcer, Other GI Disorders History: Reports: Other Problems/Disorders - Frequent urination Musculoskeletal History: Denies: Other Musculoskeletal History Sensory History: Reports: Hx Cataracts - Bilateral Denies: Hx Contacts or Glasses, Hx Hearing Aid Opthamlomology History: Reports: Hx Cataracts - Bilateral Denies: Hx Contacts or Glasses Neurological History: Reports: Other Neuro Impairments/Disorders - Schizoaffective disorder Psychiatric History: Reports: Hx Anxiety, Hx Depression, Hx Bipolar Disorder - Cancer History Cancer Type, 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 skin graft leg. cataracts. 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 Denies: Hx Hepatitis, Hx Human Immunodeficiency Virus (HIV), Traveled Outside the [place] in Last 30 Days - Family History Known Family History: Positive: Hypertension, Diabetes - Social History Alcohol Use: Rare Hx Substance Use: No Substance Use Type: Reports: None Hx Tobacco Use: Yes Smoking Status (MU): Heavy Every Day Tobacco Smoker Type: Cigarettes Amount Used/How Often: 1-2 ppd for 40 yrs Have You Smoked in the Last Year: Yes Review of Systems Negative: Fever, Chills Negative: Vomiting, Nausea Positive: Other - R knee laceration Negative: Headache All Other Systems Reviewed And Are Negative: Yes Physical Exam - Summary Physical Exam Summary: Appearance: Well-appearing, Well-nourished, lying in bed comfortably Skin: Warm, dry, no obvious rash Eyes: sclera anicteric, no conjunctival pallor ENT: mucous membranes moist, pharynx appears normal Neck: Supple, nontender Respiratory: Clear to auscultation, no signs of respiratory distress Cardiovascular: Normal S1, S2. No murmurs. Normal distal pulses in tibial and radial bilaterally. Abdomen: Soft, nontender, normal active bowel sounds present Musculoskeletal: L shaped flat laceration over the tibial tubercle just below the patella with no active bleeding, Strength/ROM Intact Neurological: A&Ox3, awake and alert, mentation is normal, speech is fluent and appropriate Psychiatric: affect is normal, does not appear anxious or depressed Triage Information Reviewed: Yes Vital Signs On Initial Exam: Initial Vitals Temp Pulse Resp BP Pulse Ox 97.8 F 75 22 181/111 96 11/13/19 20:33 11/13/19 20:33 11/13/19 20:33 11/13/19 20:33 11/13/19 20:33 Vital Signs Reviewed: Yes Procedures - Sedation Patient Received Moderate/Deep Sedation with Procedure: No - Laceration/Wound Repair 1 Location: lower extremity - R knee Description: Linear Anesthesia: Lido Length, Depth and Shape: 4 cms Irrigated w/ Saline (ccs): 200 Laceration/Wound Explored: clean Suture Type: Prolene - 4.0 Number of Sutures: 7 Layer Closure?: Yes Sterile Dressing Applied?: Yes Diagnostics - Vital Signs Vital Signs Temp Pulse Resp BP Pulse Ox 11/13/19 20:33 97.8 F 75 22 181/111 96 - Laboratory Lab Statement: Any lab studies that have been ordered have been reviewed, and results considered in the medical decision making process. Laceration Repair Course/Dx - Course Course Of Treatment: This pt is a 64 Y/O M presenting to [facility] after an ambulance was called to his group home after falling down 2 stairs and suffering an abrasion to his R knee which is rated a 9/10 in severity. He states that the pain was immediate. He denies any other pain and hitting his head on the ground. He denies any recent fevers, chills, N/V, or a headache. He has no aggravating or alleviating factors. He has a PMHx of DM, HTN, and COPD. His PE found that he has an L shaped flat laceration over the tibial tubercle just below the patella with no active bleeding. His Knee X-Ray shows no acute fractures or breaks. He received 7 4.0 Prolene sutures after irrigation with 200 ccs of saline and lidocaine as a localized numbing agent. The wound was closed without complications. He will be discharged home with a Dx of a R leg laceration. - Clinical Impression Provider Diagnoses: Laceration of right lower leg Discharge ED - Sign-Out/Discharge Documenting (check all that apply): Patient Departure - discharge - Discharge Plan Condition: Improved Disposition: HOME Patient Education Materials: Care For Your Stitches (ED), Laceration (ED) Referrals: [facility] [Primary Care Provider] - 1 Week (for suture removal) - Billing Disposition and Condition Condition: IMPROVED Disposition: Home - Attestation Statements Document Initiated by Emmanuel: Yes Documenting Scribe: Maxwell García Provider For Whom Emmanuel is Documenting (Include Credential): Samson Miranda MD Scribe Attestation: Maxwell Gerardo scribed for Samson Miranda MD on 11/15/19 at 0235. Scribe Documentation Reviewed: Yes Provider Attestation: The documentation as recorded by the Maxwell ortega accurately reflects the service I personally performed and the decisions made by me, Samson Miranda MD Status of Scribe Document: Viewed
[2019-11-13] MEDS ORDERED: Bupivacaine 0.5% W/EPI SDV* 10 ML VIAL INJ ONE (21:10)
--- OUTSIDE RECORDS SUMMARY | 2019-11-13 21:23 | XMS REPORT | Summary of Care ---
:1955 Author Organization [facility] Address [address] [address] Care Team Providers Name Role Phone [place] Primary Care Provider Reason for Visit Reason Comments Follow Up [facility] ER 10/21 for a breathing treatment, was off of meds for 3 days, 10/29 Blood tests Encounter Details Date Type Department Care Team Description 11/05/2019 Office Visit [facility] [place], Type 2 diabetes mellitus without complication, without long-term current use of insulin (HCC) ( Primary Dx); [facility] Chronic obstructive pulmonary disease, unspecified COPD type (HCC); [address] Dry skin dermatitis [place], [place] [id number] [place] [address] [phone] Allergies Active Allergy Reactions Severity Noted Date Comments [place] GI Reaction 08/28/2018 Peanuts Anaphylaxis 07/24/2018 Penicillins Hives 08/28/2018 documented as of this encounter (statuses as of 11/05/2019) Medications Medication Sig Dispensed Refills Start End [...] 10 MG Oral mouth EVERY Tab BEDTIME. Lancets Does not by Does not 60 [...] unspecified COPD COUGH OR WHEEZE type (HCC) albuterol 3 mL by 360 mg 0 Active (PROVENTIL, Inhalation-SVN 9 VENTOLIN) (2.5 route EVERY SIX MG/3ML) 0.083% HOURS NEEDED Inhalation Nebu (shortness of SolnIndications: breath, cough Chronic obstructive or wheeze). pulmonary disease, unspecified COPD type (HCC), Asthma, unspecified asthma severity, unspecified whether complicated, unspecified whether persistent budesonide-formoter Take 2 INHL by 10.2 g [...] Oral DAILY. TabIndications: COPD with acute exacerbation ([facility]) predniSONE Take 1 Tab by 5 Tab 0 Active (DELTASONE) 20 MG mouth DAILY. 0 Oral TabIndications: COPD with acute exacerbation ([facility]) metFORMIN HCL 1000 TAKE ONE TABLET 180 Tab 0 Active MG Oral Tab BY MOUTH TWO 0 TIMES DAILY Fluticasone Sherman in nose. 0 11/05/19 Discontinued Propionate (FLONASE 20 (Alternative NA) Therapy) fexofenadine Take 1 Tab by 90 Tab 0 11/05/19 Discontinued (TEO ALLERGY) mouth DAILY. 9 20 (Alternative 180 MG Oral Tab Therapy) documented as of this encounter (statuses as of 11/05/2019) Active Problems Problem Noted Date Asthma HTN (hypertension) Type 2 diabetes mellitus COPD (chronic obstructive pulmonary disease) documented as of this encounter (statuses as of 11/05/2019) Immunizations Name Administration Dates Next Due Influenza [...] Sign Reading Time Taken Comments Blood Pressure 142/72 11/05/2019 1:54 PM EST Pulse 86 11/05/2019 1:54 PM EST Temperature 36.5 11/05/2019 1:54 PM EST C (97.7 F) Respiratory Rate - - Oxygen Saturation 95% 11/05/2019 1:54 PM EST Inhaled Oxygen Concentration - - Weight 59.9 kg (132 lb) 11/05/2019 1:54 PM EST Height 167.6 cm (5' 6") 11/05/2019 1:54 PM EST Body Mass Index 21.31 11/05/2019 1:54 PM EST documented in this encounter Patient Instructions Patient InstructionsLos Quesada PA - 11/05/2019 2:00 PM ESTFollow up in three months with blood work, visit with me. Patient Education Heart Healthy Diet General With a heart healthy food plan, you will learn to make better food choices. This diet may help you lower your blood cholesterol level, manage your blood pressure, and lower your risk for heart problems. Smaller portions may also be helpful. Sodium is a type of mineral found in many foods. It helps keep the balance of fluids in your body. Too much sodium can raise your blood pressure. It can also make you take on extra water. This is called edema. Pay careful attention to how much salt or sodium is in your food. You may need to avoid saltor eat foods with less sodium. Cholesterol is a fat-like, waxy substance in your blood. It is normal to have some cholesterol in your blood because your body makes it. You also get extra cholesterol from all animal products. These are foods like meats, eggs, and dairy products. Too much cholesterol can block or damage your blood vessels. This can lead to a heart attack or stroke. Fats in your food have calories which give energy. Not all fats are bad. Some fats are healthy, likethe fat found in fish, nuts, and olive oil. These are called unsaturated fats. They help manage bodyfunctions and lower cholesterol levels. Learn about the best fats to use in your diet and where to use them. Eating too much fat may make you more likely to weigh more than is healthy. This raises yourrisk of many heart problems. Fiber is found in plants. Meat and dairy products do not have fiber in them. Fiber can help you lower your unhealthy cholesterol level. You may need more water as you eat more fiber so you do not get hard stools. What lifestyle changes are needed? Eat a healthy diet and workout often. Try to use as many calories as you take in each day. What changes to diet are needed? Eat oily fish at least 2 times a week. These are fish like tuna, salmon, and mackerel. Limit sodium to no more than 2,300 mg of sodium per day. This is about 1 teaspoon (5 grams) of table salt. Use little or no salt when making food. Try other spices or seasoning instead. Limit how much cholesterol you eat to less than 300 mg per day. You can do this by having lean meats. Also eat lots of fruits, vegetables, and fat-free and low-fat dairy products. Limit how much trans fats you eat. Trans fats are found in many processed foods like stick margarine, shortening, and some fried foods. Also, lower how much hydrogenated fats you eat. They are used to make pastries, biscuits, cookies, crackers, chips, and many snack foods. Have no more than 1 drink per day of beer, wine, and mixed drinks (alcohol) . Who should use this diet? A heart healthy diet is good for everyone. What foods are good to eat? Grains: Try to eat 6 to 8 servings of whole grain, high fiber foods each day. These are whole grain bread, cereals, brown rice, or pasta. Fruits and vegetables: Eat 4 to 5 servings each day. Try to pick many kinds and colors. Try to eat more that are fresh or frozen. Look for low sodium or salt-free if you choose canned. Rinse canned items before cooking or eating. Dried peas, beans, and lentils are also good. Dairy: Choose low fat (1%) or fat-free milk. Eat nonfat or low-fat products. Protein: Try to eat more low fat or lean meats like chicken and turkey. Eat less red meat and eat more fish, eggs, egg whites, and beans instead. Fats: Use good fats found in fish, nuts, and avocados. Try using olive oil , canola oil, and low-sodium and low-fat salad dressing and mayonnaise. Use corn , safflower, sunflower, and soybean oils. Condiments: Use low-sodium or salt-free broths, soups, soy sauce, and condiments. Pepper, herbs, spices, vinegar, lemon or hughes juices are great for seasoning. Sugar, cocoa powder, honey, syrup, and jams may be eaten in small amounts. Sweets: Low-fat, trans fat-free cookies, cakes, and pies; sloane crackers; animal crackers; low-fat fig bars; and shira snaps. What foods should be limited or avoided? Grains: Salted breads, rolls, crackers, quick breads, self-rising flours, biscuit mixes, regular bread crumbs, instant hot cereals, commercially-prepared rice, pasta, stuffing mixes Fruits and vegetables: Commercially-prepared potatoes and vegetable mixes, regular canned vegetables and juices, vegetables frozen with sauce or pickled vegetables, processed fruits with salt or sodium Dairy: Whole milk, malted milk, chocolate milk, buttermilk Protein: Smoked, cured, salted, or canned meat, fish, or poultry such as cowan and sausages Fats: Cut back on solid fats like butter, lard, and margarine. Condiments and snacks: Salted and canned peas, beans, and olives; salted snack foods; fried foods; soda, juices, or other sweetened drinks; commercially- softened water. Miso, salsa, ketchup, barbeque sauce, Worcestershire sauce, soy sauce, and teriyaki sauce are also high in salt. Sweets: High-fat baked goods such as muffins, donuts, pastries, commercial baked goods Helpful tips When you go to a grocery store, have a list or a meal plan. Do not shop when you are hungry to avoid cravings for foods. You need to know about the sodium and fat content of the food you eat. Read food labels with care. They will show you how much of each is in a serving. This amount is given as a percentage of the total amount you need each day. Reading the labels will help you make healthy food choices. Avoid fast foods. Watch your portions when eating out. Split an order or bring home half for another meal. Talk to a dietitian for help. Where can I learn more? [place] [employer] https://familydoctor.org/kxfw-lid-jpnlkupz-kkt-h-mkpjnxu-heart/ [place] [employer] http://www.heart.org/HEARTORG/HealthyLiving/HealthyEating/Nutrition/Diet-and- Lifestyle-Recommendations_[facility]_305855_Article.jsp#.Wxf_Q6oUmUk Last Reviewed Date 2018-04-11 Consumer Information Use and Disclaimer This information is not specific medical advice and does not replace information you receive from your health care provider. This is only a brief summary of general information. It does NOT include allinformation about conditions, illnesses, injuries, tests, procedures, treatments, therapies, discharge instructions or life-style choices that may apply to you. You must talk with your health care provider for complete information about your health and treatment options. This information should not beused to decide whether or not to accept your health care providers advice, instructions or recommendations. Only your health care provider has the knowledge and training to provide advice that isright for you. Copyright Copyright 2019 [employer] and its affiliates and/or licensors. All rights reserved. documented in this encounter Progress Notes [place] PA - 11/05/2019 2:00 PM EST PATIENT: Shaquille Malhotra : 1955 DATE OF SERVICE: 11/05/2019 CHIEF COMPLAINT: Chief Complaint Patient presents with Follow Up [facility] ER 10/21 for a breathing treatment, was off of meds for 3 days, 10/29 Blood tests Subjective HISTORY OF PRESENT ILLNESS: Shaquille Malhotra is a 64-y.o. male. Shaquille Malhotra is a 64-y.o. male here for evaluation of COPD. He had originally seen me at his last visit for shortness of breath and sputum production which was treated with prednisone and antibiotic prescription that I ordered. Since that visit, he sought emergency room care on 10/21/2019 for shortness of breath that resolved with a duoneb. He was discharge home and has since not had difficulty with breathing other than his shortness of breath at baseline. He continues to smoke which is playing a major role in his shortness of breath. Associated symptoms include shortness of breath and sputum production. Patient does not have a history of environmental allergens. Patient does not have recent travel. Patient does have a history of smoking. Patient does not have a history of reflux. Patient does have previous chest x-ray, which showed pulmonary nodule that is being managed by pulmonology at this time without any other acute findings . Patient does not have had a PPD done. Diabetes HPI: Visit Type: Follow-up Diabetes type: Type 2 Disease course: Worsening polydipsia and polyphagia no chest pain and no weight loss no dizziness and no headaches Treatment compliance: Poor Home blood tests: 1-2 x per day Overall blood glucose ranges: unknown, patient does not record blood sugars and could not tell mewhat his blood sugars are. However, patient is compliant with his sliding scale but has been using his insulin sliding scale as an excuse to eat more food and beverage. Exercise: Never Eye exam current? Yes Patient was treated for a rash on his hands at last visit. He complains of a chronic dryness on bothof his hands that has progressively worsened over the last month. He states that he usually has a cream that he places on his hands that improves the cracking and open sores on his hands but has not used any palliative recently. Patient has used hydrocortisone cream on the hands in visits prior with full improvement. He is not currently moisturizing. Past Medical History: Diagnosis Date Asthma Bipolar 1 disorder ([facility]) Cancer ([facility]) left ear cancer COPD (chronic obstructive pulmonary disease) ([facility]) Diabetic retinopathy ([facility]) HTN (hypertension) Psychiatric problem Schizoaffective disorder ([facility]) Type 2 diabetes mellitus ([facility]) Family History Problem Relation Age of Onset [...] Tab Take 10 mg by mouth DAILY. Glucose Blood In Vitro Strip 2 Strips [...] medications for this visit. Allergies Allergen Reactions [place] Carbonate [[place]] GI Reaction Peanuts Anaphylaxis Penicillins Hives Social [...] file Gets together: Not on file Attends latter-day service: Not on file Active member of [...] Weight Concern Not Asked Social History Narrative [employer] disability due to psychiatric illness Sister is guardian REVIEW OF SYSTEMS: Review of Systems Constitutional: Negative for fever, malaise/fatigue and weight loss. HENT: Negative for congestion, hearing loss, sinus pain, sore throat and tinnitus. Eyes: Negative for pain and discharge. Respiratory: Positive for cough and shortness of breath. Negative for sputum production and wheezing. Cardiovascular: Negative for chest pain, palpitations and leg swelling. Gastrointestinal: Negative for diarrhea, nausea and vomiting. Musculoskeletal: Negative for myalgias and neck pain. Skin: Negative for rash. Neurological: Negative for dizziness and headaches. Endo/Heme/Allergies: Positive for polydipsia and polyphagia. Objective PHYSICAL EXAM: VITALS: BP (!) 142/72 (BP Location: Left arm, Patient Position: Sitting) | Pulse 86 | Temp 97.7 F (36.5 C) (Tympanic) | Ht 5' 6" (1.676 m) | Wt 132 lb (59.9 kg) | SpO2 95% | BMI 21.31 kg/m Body mass index is 21.31 kg/ m. Physical Exam Vitals signs and nursing note [...] No respiratory distress. Breath sounds: No stridor. No wheezing, rhonchi or rales. Chest: Chest wall: No tenderness. Abdominal: General: Abdomen is flat. Bowel sounds are normal. Tenderness: There is no guarding. Lymphadenopathy: Cervical: No cervical adenopathy. Skin: General: Skin is warm and dry. Neurological: Mental Status: He is alert. ASSESSMENT / IMPRESSION: ICD-9-CM ICD-10-CM 1. Type 2 diabetes mellitus without complication, without long-term current use of insulin ([facility]) 250.00 E11.9 2. Chronic obstructive pulmonary disease, unspecified COPD type ([facility]) 496 J44.9 3. Dry skin dermatitis 692.89 L85.3 We discussed in detail the importance of healthy eating habits to reduce his risk of diabetes complications such as nerve damage, renal failure, and hospitalizations. We discussed that eating what he wants and taking the according amount of insulin is a dangerous habit, he expressed understanding. He wanted more antibiotics to treat the shortness of breath, but I advised that the best treatment for preventing the development of worsening is COPD, which he is not interested in. I discussed that he should schedule an appointment with pulmonology and maintain his routine visits with them. He expressed agreement. His skin condition is a chronic condition that looks improved from the prescription of my steroid cream at the last visit. For now, I want him to use vaseline and cover the open wounds on his skin to increase moisture to the area. If not improved then he should return to a surface plate inspector. Follow up with pulmonology. Follow up with me in 3 months, lab work beforehand. Author: CASSIDY Andrade 11/05/2019 16:33 documented in this encounter Plan of Treatment Date Type Specialty Care Team Description 02/04/2020 Lab Internal Medicine 02/10/2020 Office Visit Internal Medicine [place] PA [address] [place] [address] [phone] Health Maintenance Due Date Last Done Comments Colonoscopy 2007 FOOT EXAM 12/19/2019 12/18/2018, 12/18/2018 HEMOGLOBIN A1C 01/28/2020 10/29/2019, 07/30/2019, 04/05/2019, Additional history exists DTaP/Tdap/Td Vaccines (1 - 01/30/2020 Postponed from Tdap) 1968 (Other) LUNG CANCER SCREENING 07/30/2020 07/30/2019, 04/16/2019 Diabetic Eye Exam 10/12/2020 10/12/2018, 10/12/2018 LIPID DISORDER SCREENING 10/29/2020 10/29/2019, 10/29/2019, 09/09/2019, Additional history exists MEDICARE ANNUAL WELLNESS 11/05/2020 Postponed from VISIT 1955 (Other) ZOSTER IMMUNIZATION SERIES 11/05/2020 Postponed from (1 of 2) 2007 (Other) DEPRESSION SCREENING 08/28/2025 Postponed from 1969 (Other) [...] Type Problems Progress Blood Pressure Blood Pressure 142/72 Ramírez Ray < 140/90 (11/05/2019 DO Elyssa 1:54 PM EST) Note: This is an individualized [...] your depression. Glycohemoglobin A1c < 7.0 Diabetes 8.4 (10/29/2019 8:10 AM Ramírez Ray DO EST) Note: This is an individualized treatment (diabetes control, HgbA1C) goal for Shaquille Malhotra: Displayed above is your progress towards your HgbA1C goal. Your goal is shown above (on the left); your most recent HgbA1C is shown on the right. Note that lower numbers are better. Keep immunizations current Lifestyle No Ramírez Callaway DO Note: This is an individualized lifestyle [...] filedocumented in this encounter Visit Diagnoses Diagnosis Type 2 diabetes mellitus without complication, without long-term current use of insulin (HCC) Chronic obstructive pulmonary disease, unspecified COPD type (HCC) Dry skin dermatitis Contact dermatitis and other eczema due to other specified agent documented in this encounter Insurance Payer Benefit Plan / Subscriber ID Effective Dates Phone Address Type Group MEDICARE MEDICARE PART A xxxxxxxxxxx 1982-Present Medicare & B MEDICAID [facility] xxxxxxxx 2018-Present Medicaid [place] documented as of this encounter
== END 2019-11-13 21:58 | disposition home or self-care (01) ==
LOC: ED 20:26
DX: S81.811A Laceration without foreign body, right lower leg, initial encounter (principal); W10.9XXA Fall (on) (from) unspecified stairs and steps, initial encounter; Y92.129 Unspecified place in nursing home as the place of occurrence of the external cause; E11.9 Type 2 diabetes mellitus without complications; I10 Essential (primary) hypertension; J44.9 Chronic obstructive pulmonary disease, unspecified; F41.9 Anxiety disorder, unspecified; F31.9 Bipolar disorder, unspecified; F17.210 Nicotine dependence, cigarettes, uncomplicated; Z85.828 Personal history of other malignant neoplasm of skin; Z79.84 Long term (current) use of oral hypoglycemic drugs; Z88.0 Allergy status to penicillin; Z88.8 Allergy status to other drugs, medicaments and biological substances
CPT/HCPCS: 12002; 99282

== ENCOUNTER 2019-11-20 19:43 | Inpatient (IN) | payer MEDICARE, MEDICAID ==
[2019-11-20] MEDS ORDERED: metroNIDAZOLE IV 500 MG/100ML* 500 MG/100 ML BAG IVPB ONE (19:54)
[2019-11-20] MEDS ORDERED: NS 0.9% 1000 ML** 1,000 ML IV.FLUID IV ONE (19:54)
[2019-11-20] MEDS ORDERED: Ciprofloxacin 400MG IVPREMIX(* 400 MG/200 ML BAG IVPB ONE (19:57)
[2019-11-20] MEDS ORDERED: Vancomycin(*) 1,000 MG VIAL IVPB SCH (20:00)
[2019-11-20] MEDS ORDERED: cefTRIAXone(*) 1 GM in NS 0.9% 50 ML* 50 ML IVPB ONE (20:44)
[2019-11-20] MEDS ORDERED: Azithromycin 500 mg/250 ml NS 500 MG/250 ML BAG IVPB ONE (20:44)
--- NOTE | 2019-11-20 20:50 | ED ---
Complex/Multi-Sys Presentation - HPI Summary HPI Summary: Patient is a 64 y/o M presenting to [facility] via EMS with complaints of hypoxia, cough, and altered mental status. Patient currently resides at a [facility], staff found the patient with hypoxia, cough, and AMS. In the room, patient is alert but not oriented to year, with the patient stating that it is currently 2080. He additionally states that he has a EUGENE and abdominal pain. He denies vomiting and diarrhea. Patient is shaking while lying in stretcher but he claims this is his baseline. PMHx of diabetes, asthma noted. He is a current smoker but denies alcohol usage. Patient is refusing IV as he states that the last time he was [facility] he had to be poked three times. He also states that he is well and wants to go home. Home medications and allergies are reviewed. - History Of Current Complaint Chief Complaint: EDShortnessOfBreath Time Seen by Provider: 11/20/19 19:52 Hx Obtained From: Patient, EMS Onset/Duration: Still Present Timing: Constant Location: Pain At: - abdomen, head Associated Signs And Symptoms: Positive: Confusion, Headache, SOB, Cough, Abdominal Pain. Negative: Vomiting, Diarrhea - Allergies/Home Medications Allergies/Adverse Reactions: Allergies Allergy/AdvReac Type Severity Reaction Status Date / Time nut - unspecified Allergy Severe Anaphylatic Verified 10/21/19 18:47 Shock lithium Allergy Intermediate Kidney Verified 10/21/19 18:47 Scarring Penicillins Allergy Hives Verified 10/21/19 18:47 Home Medications: Home Medications Atorvastatin* [Lipitor 40 MG*] 40 mg PO BEDTIME 10/29/18 [History Confirmed ] Albuterol HFA INHALER* [Ventolin HFA Inhaler*] 2 puff INH Q4H PRN 30 Days #1 mdi 07/24/19 [Rx Confirmed 11/20/19] Escitalopram * [Lexapro 10 mg (NF)] 10 mg PO DAILY 07/24/19 [History Confirmed 11/20/19] Lisinopril TAB* [Prinivil TAB*] 20 mg PO DAILY 07/24/19 [History Confirmed 11/20] Divalproex DR TAB(*) [Depakote DR(*)] 1,000 mg PO BEDTIME 10/21/19 [History Confirmed 11/20/19] Divalproex DR TAB(*) [Depakote DR(*)] 500 mg PO QAM 10/21/19 [History Confirmed 11/20/19] metFORMIN* [Glucophage 1000 MG TAB *] 1,000 mg PO BID 10/21/19 [History Confirmed 11/20/19] Haloperidol TAB* [Haldol TAB*] 10 mg PO DAILY 11/20/19 [History Confirmed ] Insulin Aspart [Novolog 100 UNITS/ML 10 ML VIAL] 2 - 4 unit SUBCUT ACHS [History Confirmed 11/20/19] Insulin Glargine,Hum.rec.anlog [Basaglar Kwikpen 100 inuts/ml 3 ml x 5 Pens] 4 units SUBCUT BEDTIME 11/20/19 [History Confirmed 11/20/19] Insulin Glargine,Hum.rec.anlog [Basaglar Kwikpen 100 inuts/ml 3 ml x 5 Pens] 6 units SUBCUT QAM 11/20/19 [History Confirmed 11/20/19] Umeclidinium 62.5 MDI(NF) [Incruse ELLIPTA MDI (NF)] 1 puff INH BID PRN [History Confirmed 11/20/19] PMH/Surg Hx/FS Hx/Imm Hx Endocrine/Hematology History: Reports: Hx Diabetes - on oral medication Denies: Hx Thyroid Disease Cardiovascular History: Reports: Hx Hypertension Denies: Other Cardiovascular Problems/Disorders Respiratory History: Reports: Hx Asthma, Hx Chronic Obstructive Pulmonary Disease (COPD), Other Respiratory Problems/Disorders - Heavy smoker-1 ppd GI History: Denies: Hx Ulcer, Other GI Disorders History: Reports: Other Problems/Disorders - Frequent urination Musculoskeletal History: Denies: Other Musculoskeletal History Sensory History: Reports: Hx Cataracts - Bilateral Denies: Hx Contacts or Glasses, Hx Hearing Aid Opthamlomology History: Reports: Hx Cataracts - Bilateral Denies: Hx Contacts or Glasses Neurological History: Reports: Other Neuro Impairments/Disorders - Schizoaffective disorder Psychiatric History: Reports: Hx Anxiety, Hx Depression, Hx Bipolar Disorder - Cancer History Cancer Type, Location and Year: left ear - amputation - Surgical History Surgery Procedure, Year, and Place: 5/18 - cancerous skin lesion. skin graft leg. cataracts. 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 Negative: Vomiting, Diarrhea Neurological/Mental Status: Other - positive - AMS Positive: Headache All Other Systems Reviewed And Are Negative: Yes Physical Exam - Summary Physical Exam Summary: Constitutional: Well-developed, Well-nourished, Alert. (-) Distressed Skin: Warm, Dry; patient with RLE wound with stitches just distal to the knee. The patient has FROM at the knee but the area is warm and erythematous. HENT: Normocephalic; Atraumatic Eyes: Conjunctiva normal Neck: Musculoskeletal ROM normal neck. (-) JVD, (-) Stridor, (-) Tracheal deviation Cardio: Rhythm regular, rate normal, Heart sounds normal; Intact distal pulses; Radial pulses are 2+ and symmetric. (-) Murmur Pulmonary/Chest wall: Patient has an o2 saturation of 86% on RA. Patient with rhonchi at right lower lung field. (-) Wheezes Abd: Soft, (-) tenderness, (-) Distension, (-) Guarding, (-) Rebound Musculoskeletal: (-) Edema Lymph: (-) Cervical adenopathy Neuro: Alert, Oriented x3 Psych: Mood and affect Normal Triage Information Reviewed: Yes Vital Signs On Initial Exam: Initial Vitals Temp Pulse Resp BP Pulse Ox 99.2 F 99 24 214/90 87 11/20/19 19:47 11/20/19 19:47 11/20/19 19:47 11/20/19 19:47 11/20/19 19:47 Vital Signs Reviewed: Yes Procedures - Sedation Patient Received Moderate/Deep Sedation with Procedure: No Diagnostics - Vital Signs Vital Signs Temp Pulse Resp BP Pulse Ox 11/20/19 19:47 99.2 F 99 24 214/90 87 - Laboratory Result Diagrams: 11/21/19 05:10 11/21/19 05:10 Lab Statement: Any lab studies that have been ordered have been reviewed, and results considered in the medical decision making process. - Radiology CXR Radiology Interpretation Completed By: ED Physician Summary of Radiographic Findings: Right lower lobe infiltrate with associated pulmonary infiltrate, pending official report. - EKG 2023 Cardiac Rate: NL - rate of 99 BPM EKG Rhythm: Sinus Rhythm Summary of EKG Findings: EKG showed NSR with rate of 99 BPM, no STEMI. ED physician has reviewed and interpreted this EKG. Complex Multi-Symp Course/Dx Course Of Treatment: Patient brought hypoxia, cough, fever. Patient initially refused all tests but was eventually convinced to have a chest x-ray, blood work. Patient initially was worked up for sepsis and received a 40% kilo bolus and empiric antibiotics for pneumonia. Patient had a chest x-ray showed right lower lobe infiltrate versus edema with a pleural effusion. Patient had a normal white count and a normal lactate. Patient did have normal BNP. Patient was admitted to medicine for further evaluation of his hypoxia and treatment of likely pneumonia. - Diagnoses Provider Diagnoses: Right lower lobe pneumonia, Cough, Fever, Hypoxia - Physician Notifications Discussed Care Of Patient With: Benjamin Tom Time Discussed With Above Provider: 21:37 Instructed by Provider To: Admit As Inpatient - Critical Care Time Critical Care Time: 30-74 min - 35 minutes Discharge ED - Sign-Out/Discharge Documenting (check all that apply): Patient Departure - ADMIT - Discharge Plan Condition: Fair Disposition: ADMITTED TO [facility] - Billing Disposition and Condition Condition: FAIR Disposition: Admitted to [facility] - Attestation Statements Document Initiated by Toñaibjonathan: Yes Documenting Scribe: AVINASH LI Provider For Whom Emmanuel is Documenting (Include Credential): KENYETTA SANTOS MD Scribe Attestation: AVINASH Gerardo, scribed for KENYETTA SNATOS MD on 11/21/19 at 1214. Scribe Documentation Reviewed: Yes Provider Attestation: The documentation as recorded by the AVINASH ortega accurately reflects the service I personally performed and the decisions made by me, KENYETTA SANTOS MD Status of Scribe Document: Viewed
[2019-11-20 21:09] LABS: ABS Eosinophils 0.1 10^3/ul (0-0.6); ABS Lymphocytes 0.8 10^3/ul (1.0-4.8); ABS Monocytes 1.5 10^3/ul (0-0.8); Eosinophil % 0.7 %; Hematocrit 43 % (42-52); Hemoglobin 14.7 g/dL (14.0-18.0); Lymphocyte % 8.9 %; Mean Corpuscular HGB Conc 34 g/dL (31-36); Mean Corpuscular Hemoglobin 33 pg (27-31); Mean Corpuscular Volume 96 fL (80-94); Platelet Count 221 10^3/uL (150-450); Red Blood Count 4.46 10^6 /uL (4.18-5.48); Red Cell Distribution Width 15 % (10-15); White Blood Count 9.4 10^3/uL (3.5-10.8)
[2019-11-20 21:15] LABS: INR 1.09 (0.82-1.09)
[2019-11-20 21:26] LABS: ALT 20 U/L (7-52); AST 22 U/L (13-39); Albumin 3.7 g/dL (3.2-5.2); Albumin/Globulin Ratio 1.1 (1-3); Alkaline Phosphatase 30 U/L (34-104); Anion Gap 7 mmol/L (2-11); Blood Urea Nitrogen 21 mg/dL (6-24); CO2 Carbon Dioxide 30 mmol/L (22-32); Calcium 9.4 mg/dL (8.6-10.3); Chloride 100 mmol/L (101-111); EGFR African American 86.6 (>60); EGFR Non-African American 71.6 (>60); Globulin 3.5 g/dL (2-4); Glucose 94 mg/dL (70-100); Potassium 4.3 mmol/L (3.5-5.0); Sodium 137 mmol/L (135-145); Total Protein 7.2 g/dL (6.4-8.9)
[2019-11-20 21:37] LABS: Troponin I 0.05 ng/mL (<0.03)
[2019-11-20 21:48] LABS: Urine Appearance Clear; Urine Bilirubin Negative (Negative); Urine Blood 2+ (Negative); Urine Color Yellow; Urine Glucose Negative (Negative); Urine Ketones Trace (Negative); Urine Nitrite Negative (Negative); Urine Protein 2+(100 mg/dL) (Negative); Urine Urobilinogen Negative (Negative)
[2019-11-20 21:51] LABS: Urine Bacteria Absent (Absent); Urine Red Blood Cell 3+(>10/hpf) (Absent); Urine White Blood Cell Trace(0-5/hpf) (Absent)
[2019-11-20 21:55] LABS: Influenza A Molecular Negative (Negative); Influenza B Molecular Negative (Negative)
[2019-11-20] MEDS ORDERED: Ondansetron INJ* 2 MG/ML VIAL IV PRN (22:09)
[2019-11-20] MEDS ORDERED: Dextrose 50% Syringe 50 ML* 25 GM/50 ML SYRINGE IV PUSH PRN (22:16)
[2019-11-20] MEDS ORDERED: Lisinopril TAB* 10 MG PO ONE (22:34)
[2019-11-20] MEDS ORDERED: cefTRIAXone(*) 1 GM in NS 0.9% 50 ML* 50 ML IVPB SCH (23:00)
[2019-11-20] MEDS ORDERED: Divalproex DR TAB(*) 500 MG PO SCH (23:00)
[2019-11-20 23:04] LABS: Folate > 20.00 ng/mL (>3.99)
[2019-11-20 23:06] LABS: Troponin I 0.06 ng/mL (<0.03)
[2019-11-20] MEDS: Albuterol/Ipratropium NEB.SOL* Albuterol 2.5 MG/Ipratropium 0.5 MG 3 ML INH SCH (23:53)
[2019-11-20] MEDS: Acetaminophen TAB* 325 MG PO PRN (23:55)
[2019-11-20] MEDS: Benzonatate CAP* 100 MG PO PRN (23:55)
[2019-11-21] MEDS: Enoxaparin(*) 40 MG/0.4 ML SYR SUBCUT SCH ×2 (00:03→21:49)
[2019-11-21] MEDS: Insulin GLARGINE(*) 1 UNITS UNIT SUBCUT SCH ×2 (00:04→22:01)
[2019-11-21] MEDS: DOXYcycline IV* 100 MG in NS 0.9% 250 ML* 250 ML IVPB SCH ×2 (00:04→10:53)
[2019-11-21] MEDS: Mometasone/Formoter 200/5 MDI INH SCH ×3 (01:35→19:21)
[2019-11-21] MEDS: SPIRIVA Respimat* (tiotropium) 2.5 mcg/inh Inhaler INH SCH ×2 (01:36→07:15)
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
[2019-11-21] MEDS ORDERED: Albuterol/Ipratropium NEB.SOL* Albuterol 2.5 MG/Ipratropium 0.5 MG 3 ML ONE (04:39)
[2019-11-21] MEDS: Albuterol/Ipratropium NEB.SOL* Albuterol 2.5 MG/Ipratropium 0.5 MG 3 ML INH SCH ×4 (04:40→18:21)
[2019-11-21 05:18] LABS: ABS Basophils 0.1 10^3/ul (0-0.2); ABS Lymphocytes 1.1 10^3/ul (1.0-4.8); ABS Monocytes 0.2 10^3/ul (0-0.8); ABS Neutrophils 6.4 10^3/ul (1.5-7.7); Hematocrit 41 % (42-52); Hemoglobin 13.8 g/dL (14.0-18.0); Lymphocyte % 13.6 %; Mean Corpuscular HGB Conc 34 g/dL (31-36); Mean Corpuscular Hemoglobin 33 pg (27-31); Mean Corpuscular Volume 98 fL (80-94); Platelet Count 196 10^3/uL (150-450); Red Blood Count 4.19 10^6 /uL (4.18-5.48); Red Cell Distribution Width 16 % (10-15); White Blood Count 7.8 10^3/uL (3.5-10.8)
[2019-11-21 05:33] LABS: Anion Gap 8 mmol/L (2-11); BUN/Creatinine Ratio 21.4 (8-20); Blood Urea Nitrogen 22 mg/dL (6-24); CO2 Carbon Dioxide 28 mmol/L (22-32); Calcium 8.5 mg/dL (8.6-10.3); Chloride 102 mmol/L (101-111); EGFR African American 88.5 (>60); EGFR Non-African American 73.2 (>60); Glucose 152 mg/dL (70-100); Magnesium 1.6 mg/dL (1.9-2.7); Potassium 4.5 mmol/L (3.5-5.0); Sodium 138 mmol/L (135-145)
[2019-11-21] MEDS ORDERED: Magnesium Sulfate 2 GM IV* 2 GM/50 ML BAG IVPB ONE (05:36)
[2019-11-21 05:38] LABS: Troponin I 0.05 ng/mL (<0.03)
[2019-11-21] MEDS ORDERED: Divalproex DR TAB(*) 500 MG PO SCH (09:00)
[2019-11-21] MEDS: Insulin LISPRO* 1 UNITS UNIT SUBCUT SCH ×4 (09:07→22:00)
[2019-11-21] MEDS ORDERED: methylPREDNISolone SOD 40 MG* 1 ML VIAL IV SCH (10:00)
[2019-11-21] MEDS: Escitalopram * 10 MG TAB PO SCH (10:05)
[2019-11-21] MEDS: guaiFENesin ER TAB 600 MG PO SCH ×2 (10:06→22:00)
[2019-11-21] MEDS: Lisinopril TAB* 10 MG PO SCH (10:06)
[2019-11-21] MEDS: Haloperidol TAB* 10 MG PO SCH (10:06)
[2019-11-21] MEDS: metFORMIN* 1,000 MG TAB PO SCH ×2 (10:07→21:47)
--- NOTE | 2019-11-21 10:32 | PN ---
Subjective Date of Service: 11/21/19 Interval History: Mr. Malhotra is feeling poor today. He is frustrated that he cannot eat. He does admit to coughing frequently at home after eating or drinking. Denies CP or SOB. He reports he has been thickening his liquids per previous instructions. No concerns from nursing this morning, but there was an episode of aspiration last night. Family History: Unchanged from Admission Social History: Unchanged from Admission Past Medical History: Unchanged from Admission Objective Active Medications: Acetaminophen (Tylenol Tab*) 650 mg PO Q6H PRN MILD PAIN or TEMP > 100.4 Albuterol (Ventolin 2.5 Mg/3 Ml Neb.Shraddha*) 2.5 mg INH Q2H PRN SOB/WHEEZING Albuterol/Ipratropium (Duoneb (Albuterol 2.5 Mg/Ipratropium 0.5 Mg)) 1 neb INH [id number] AWAKE TER[facility] Atorvastatin Calcium (Lipitor*) 40 mg PO BEDTIME [facility] Benzonatate (Tessalon Cap*) 100 mg PO BID PRN COUGH Dextrose (D50w Syringe 50 Ml*) 12.5 gm IV PUSH .FOR FS < 60 - SS PRN FS < 60 Divalproex Sodium (Depakote Dr Tab(*)) 1,000 mg PO BEDTIME [facility] Divalproex Sodium (Depakote Sprinkle Cap*) 500 mg PO QAM [facility] Enoxaparin Sodium (Lovenox(*)) 40 mg SUBCUT Q24H [facility] Escitalopram Oxalate (Lexapro *) 10 mg PO DAILY [facility] Guaifenesin (Mucinex*) 1,200 mg PO BID [facility] Haloperidol (Haldol Tab*) 10 mg PO DAILY [facility] Doxycycline Hyclate 100 mg/ (Sodium Chloride) 250 mls @ 250 mls/hr IVPB Q12H [facility] Ceftriaxone Sodium 1 gm/ (Sodium Chloride) 50 mls @ 200 mls/hr IVPB Q24H [facility] Insulin Glargine (Lantus(*)) 10 units SUBCUT Q24H [facility] Insulin Human Lispro (Humalog*) 0 units SUBCUT ACHS [facility]; Protocol Lisinopril (Prinivil Tab*) 40 mg PO DAILY [facility] Metformin HCl (Glucophage*) 1,000 mg PO BID [facility] Methylprednisolone Sodium Succinate (Solu-Medrol 40 Mg) 40 mg IV Q12H [facility] Mometasone Furoate/Formoterol Fumar (Dulera 200/5 Mdi*) 2 puff INH BID [facility] Ondansetron HCl (Zofran Inj*) 4 mg IV Q6H PRN [facility] Tiotropium Kunkle (Spiriva Respimat 2.5 Mcg) 2 puff INH DAILY [facility] Vital Signs - 8 hr 11/21/19 11/21/19 11/21/19 03:15 04:43 07:15 Temperature 97.6 F Pulse Rate 64 94 61 Respiratory 16 22 18 Rate Blood Pressure 117/47 (mmHg) O2 Sat by Pulse 98 93 98 Oximetry Oxygen Devices in Use Now: Nasal Cannula - 2L Appearance: Middle-aged male lying in bed in NAD Ears/Nose/Mouth/Throat: Mucous Membranes Moist Neck: NL Appearance and Movements; NL JVP, Trachea Midline Respiratory: Symmetrical Chest Expansion and Respiratory Effort, - - Scattered wheezing Cardiovascular: NL Sounds; No Murmurs; No JVD, RRR Abdominal: NL Sounds; No Tenderness; No Distention Extremities: No Edema Neurological: Alert and Oriented x 3 Lines/Tubes/Other Access: Clean, Dry and Intact Peripheral IV Result Diagrams: 11/21/19 05:10 11/21/19 05:10 Assess/Plan/Problems-Billing Assessment: Mr. Malhotra is a 64 yo M with PMH of DM2, HTN, schizoaffective bipolar type, HLD, COPD, asthma; who presented to the ED with c/o AMS and SOB and was found to be hypoxic secondary to pneumonia, possibly aspiration-related. - Patient Problems (1) Aspiration pneumonia Code(s): J69.0 - PNEUMONITIS DUE TO INHALATION OF FOOD AND VOMIT Comment: - Presumed aspirational pneumonia likely in view of his swallowing dysfunction - CXR on admission showing right basilar infiltrate with pleural effusion - Negative Legionella and Strep pneumo urine antigens - Episode of suspected aspiration on the night of admission - Speech Therapy consult today; no aspiration noted on assessment, but swallow study showed evidence of aspiration on nectar thick liquids - Honey thickened liquids - Continue ceftriaxone; start Flagyl (2) Asthma with COPD with exacerbation Code(s): J44.1 - CHRONIC OBSTRUCTIVE PULMONARY DISEASE W (ACUTE) EXACERBATION; J45.901 - UNSPECIFIED ASTHMA WITH (ACUTE) EXACERBATION Comment: - Secondary to pneumonia - Asthma/COPD not well controlled with active smoking - Continue predinsone, Dulera, Spiriva, nebs (3) Acute respiratory failure with hypoxia Code(s): J96.01 - ACUTE RESPIRATORY FAILURE WITH HYPOXIA Comment: - Requiring 2L oxygen - Secondary to pneumonia - Wean as tolerated (4) Sepsis Comment: - Resolved - Met criteria on admission with tachycardia and tachypnea; source is pneumonia (5) Oropharyngeal dysphagia Code(s): R13.12 - DYSPHAGIA, OROPHARYNGEAL PHASE Comment: - Downgrade to honey thick (6) Diabetes Code(s): E11.9 - TYPE 2 DIABETES MELLITUS WITHOUT COMPLICATIONS Comment: - A1c 8.2% - Continue metformin, Lantus, Lispro SS (7) Hypertension Code(s): I10 - ESSENTIAL (PRIMARY) HYPERTENSION Comment: - Hypertensive this morning, but missed medication this morning while NPO - Continue lisinopril (8) Schizo-affective schizophrenia Code(s): F25.0 - SCHIZOAFFECTIVE DISORDER, BIPOLAR TYPE Comment: - Continue Depakote, escitalopram, Haldol (9) Hyperlipidemia Code(s): E78.5 - HYPERLIPIDEMIA, UNSPECIFIED Comment: - Continue atorvastatin (10) DVT prophylaxis Code(s): Z29.9 - ENCOUNTER FOR PROPHYLACTIC MEASURES, UNSPECIFIED Comment: - Lovenox (11) Full code status Code(s): Z78.9 - OTHER SPECIFIED HEALTH STATUS Comment: Status and Disposition: Inpatient. Anticipate d/c home when medically stable. Attending: Shawna Rodarte
[2019-11-21] MEDS: Divalproex Sprinkle CAP* 125 MG PO SCH ×2 (10:53→21:49)
[2019-11-21] MEDS ORDERED: Lisinopril TAB* 10 MG PO ONE (15:12)
[2019-11-21] MEDS: metroNIDAZOLE IV 500 MG/100ML* 500 MG/100 ML BAG IVPB SCH ×2 (15:29→23:50)
[2019-11-21] MEDS: Atorvastatin* 40 MG TAB PO SCH (21:45)
[2019-11-21] MEDS: cefTRIAXone(*) 1 GM in NS 0.9% 50 ML* 50 ML IVPB SCH (22:00)
[2019-11-21] MEDS: Albuterol 2.5 MG/3 ML NEB.SOL* (0.083%) INH PRN (22:48)
[2019-11-22] MEDS: Albuterol/Ipratropium NEB.SOL* Albuterol 2.5 MG/Ipratropium 0.5 MG 3 ML INH SCH ×5 (01:05→19:29)
[2019-11-22 06:45] LABS: BUN/Creatinine Ratio 23.9 (8-20); Calcium 8.4 mg/dL (8.6-10.3); EGFR African American 82.9 (>60); EGFR Non-African American 68.5 (>60); Magnesium 1.8 mg/dL (1.9-2.7); Potassium 4.2 mmol/L (3.5-5.0)
[2019-11-22] MEDS ORDERED: Magnesium Oxide TAB* 400 MG PO ONE (07:24)
[2019-11-22] MEDS: SPIRIVA Respimat* (tiotropium) 2.5 mcg/inh Inhaler INH SCH (07:32)
[2019-11-22] MEDS: Mometasone/Formoter 200/5 MDI INH SCH ×2 (07:32→19:29)
[2019-11-22] MEDS: metroNIDAZOLE IV 500 MG/100ML* 500 MG/100 ML BAG IVPB SCH (08:10)
[2019-11-22] MEDS: Divalproex Sprinkle CAP* 125 MG PO SCH ×2 (08:11→22:12)
[2019-11-22] MEDS: metFORMIN* 1,000 MG TAB PO SCH ×2 (08:12→22:12)
[2019-11-22] MEDS: Escitalopram * 10 MG TAB PO SCH (08:12)
[2019-11-22] MEDS: Lisinopril TAB* 10 MG PO SCH (08:12)
[2019-11-22] MEDS: Haloperidol TAB* 10 MG PO SCH (08:12)
[2019-11-22] MEDS: Benzonatate CAP* 100 MG PO PRN (08:13)
[2019-11-22] MEDS: Acetaminophen TAB* 325 MG PO PRN (08:13)
[2019-11-22] MEDS: guaiFENesin ER TAB 600 MG PO SCH (08:49)
[2019-11-22] MEDS: Insulin LISPRO* 1 UNITS UNIT SUBCUT SCH ×4 (09:22→22:13)
[2019-11-22] MEDS: guaiFENesin 100 mg/5 ml LIQ unit dose cup PO SCH ×3 (11:29→22:12)
--- NOTE | 2019-11-22 14:35 | PN ---
Subjective Date of Service: 11/22/19 Interval History: Mr. Malhotra is feeling poor today. He is unable to provide much subjective information and will mostly just nod his head. He admits to feeling SOB, but no CP. He feels worse than yesterday. Nursing reports patient was noted to be 81% on RA when he removed his oxygen. Family History: Unchanged from Admission Social History: Unchanged from Admission Past Medical History: Unchanged from Admission Objective Active Medications: Acetaminophen (Tylenol Tab*) 650 mg PO Q6H PRN MILD PAIN or TEMP > 100.4 Albuterol (Ventolin 2.5 Mg/3 Ml Neb.Shraddha*) 2.5 mg INH Q2H PRN SOB/WHEEZING Albuterol/Ipratropium (Duoneb (Albuterol 2.5 Mg/Ipratropium 0.5 Mg)) 1 neb INH [id number] AWAKE [facility] Atorvastatin Calcium (Lipitor*) 40 mg PO BEDTIME [facility] Benzonatate (Tessalon Cap*) 100 mg PO BID PRN COUGH Dextrose (D50w Syringe 50 Ml*) 12.5 gm IV PUSH .FOR FS < 60 - SS PRN FS < 60 Divalproex Sodium (Depakote Sprinkle Cap*) 500 mg PO QAM [facility] Divalproex Sodium (Depakote Sprinkle Cap*) 1,000 mg PO BEDTIME [facility] Enoxaparin Sodium (Lovenox(*)) 40 mg SUBCUT Q24H [facility] Escitalopram Oxalate (Lexapro *) 10 mg PO DAILY [facility] Guaifenesin (Robitussin 100 Mg/5ml Liq) 5 ml PO Q6H [facility] Haloperidol (Haldol Tab*) 10 mg PO DAILY [facility] Ceftriaxone Sodium 1 gm/ (Sodium Chloride) 50 mls @ 200 mls/hr IVPB Q24H [facility] Metronidazole/Sodium Chloride (Flagyl 500 Mg Ivpb*) 500 mg in 100 mls @ 100 mls /hr IVPB Q8H [facility] Insulin Glargine (Lantus(*)) 10 units SUBCUT Q24H [facility] Insulin Human Lispro (Humalog*) 0 units SUBCUT ACHS [facility]; Protocol Lisinopril (Prinivil Tab*) 40 mg PO DAILY [facility] Metformin HCl (Glucophage*) 1,000 mg PO BID [facility] Mometasone Furoate/Formoterol Fumar (Dulera 200/5 Mdi*) 2 puff INH BID [facility] Ondansetron HCl (Zofran Inj*) 4 mg IV Q6H PRN NAUSEA Prednisone (Deltasone 50 Mg Tab) 50 mg PO DAILY [facility] Tiotropium [place] (Spiriva Respimat 2.5 Mcg) 2 puff INH DAILY [facility] Vital Signs - 8 hr 11/22/19 11/22/19 11/22/19 07:33 07:34 08:15 Temperature 98.1 F Pulse Rate 79 90 Respiratory 22 24 18 Rate Blood Pressure 179/71 (mmHg) O2 Sat by Pulse 97 94 Oximetry 11/22/19 11/22/19 11:39 13:59 Temperature 97.7 F Pulse Rate 70 72 Respiratory 18 18 Rate Blood Pressure 128/58 (mmHg) O2 Sat by Pulse 95 97 Oximetry Oxygen Devices in Use Now: Nasal Cannula - 2L Appearance: Middle-aged male lying in bed in NAD Ears/Nose/Mouth/Throat: Mucous Membranes Moist Neck: NL Appearance and Movements; NL JVP, Trachea Midline Respiratory: Symmetrical Chest Expansion and Respiratory Effort, - - Scattered rhonchi and wheezing Cardiovascular: NL Sounds; No Murmurs; No JVD, RRR Extremities: No Edema Neurological: Alert and Oriented x 3 Lines/Tubes/Other Access: Clean, Dry and Intact Peripheral IV Nutrition: Taking PO's Result Diagrams: 11/21/19 05:10 11/22/19 05:54 Assess/Plan/Problems-Billing Assessment: Mr. Malhotra is a 64 yo M with PMH of DM2, HTN, schizoaffective bipolar type, HLD, COPD, asthma; who presented to the ED with c/o AMS and SOB and was found to be hypoxic secondary to pneumonia, possibly aspiration-related. - Patient Problems (1) Aspiration pneumonia Code(s): J69.0 - PNEUMONITIS DUE TO INHALATION OF FOOD AND VOMIT Comment: - Presumed aspirational pneumonia likely in view of his swallowing dysfunction - CXR on admission showing right basilar infiltrate with pleural effusion - Negative Legionella and Strep pneumo urine antigens - Episode of suspected aspiration on the night of admission - Speech Therapy consulted; no aspiration noted on assessment, but swallow study showed evidence of aspiration on nectar thick liquids - Mechanical soft diet with honey-thickened liquids - Continue ceftriaxone; resume doxy (2) Asthma with COPD with exacerbation Code(s): J44.1 - CHRONIC OBSTRUCTIVE PULMONARY DISEASE W (ACUTE) EXACERBATION; J45.901 - UNSPECIFIED ASTHMA WITH (ACUTE) EXACERBATION Comment: - Secondary to pneumonia - Asthma/COPD not well controlled with active smoking - Continue predinsone, Dulera, Spiriva, nebs (3) Acute respiratory failure with hypoxia Code(s): J96.01 - ACUTE RESPIRATORY FAILURE WITH HYPOXIA Comment: - Requiring 2L oxygen - Secondary to pneumonia - Wean as tolerated (4) Knee laceration Code(s): S81.019A - LACERATION WITHOUT FOREIGN BODY, UNSP KNEE, INIT ENCNTR Comment: - Secondary to fall at home - Received 7 sutures in ED on 11/13, recommended to be removed in 1 week - Spoke with nurse who will remove sutures today (5) Sepsis Comment: - Resolved - Met criteria on admission with tachycardia and tachypnea; source is pneumonia (6) Oropharyngeal dysphagia Code(s): R13.12 - DYSPHAGIA, OROPHARYNGEAL PHASE Comment: - Honey thick liquids (7) Diabetes Code(s): E11.9 - TYPE 2 DIABETES MELLITUS WITHOUT COMPLICATIONS Comment: - A1c 8.2% - Continue metformin, Lantus, Lispro SS (8) Hypertension Code(s): I10 - ESSENTIAL (PRIMARY) HYPERTENSION Comment: - Hypertensive this morning - Continue lisinopril (9) Schizo-affective schizophrenia Code(s): F25.0 - SCHIZOAFFECTIVE DISORDER, BIPOLAR TYPE Comment: - Continue Depakote, escitalopram, Haldol (10) Hyperlipidemia Code(s): E78.5 - HYPERLIPIDEMIA, UNSPECIFIED Comment: - Continue atorvastatin (11) DVT prophylaxis Code(s): Z29.9 - ENCOUNTER FOR PROPHYLACTIC MEASURES, UNSPECIFIED Comment: - Lovenox (12) Full code status Code(s): Z78.9 - OTHER SPECIFIED HEALTH STATUS Comment: Status and Disposition: Inpatient. Anticipate d/c home when medically stable. Attending: Shawna Rodarte
[2019-11-22] MEDS ORDERED: DOXYcycline IV* 100 MG in NS 0.9% 250 ML* 250 ML IVPB SCH (15:00)
[2019-11-22] MEDS: DOXYcycline IV* 100 MG in NS 0.9% 250 ML* 250 ML IVPB SCH (16:56)
[2019-11-22] MEDS: Albuterol 2.5 MG/3 ML NEB.SOL* (0.083%) INH PRN (17:04)
[2019-11-22] MEDS: Enoxaparin(*) 40 MG/0.4 ML SYR SUBCUT SCH (22:12)
[2019-11-22] MEDS: Atorvastatin* 40 MG TAB PO SCH (22:13)
[2019-11-22] MEDS: Insulin GLARGINE(*) 1 UNITS UNIT SUBCUT SCH (22:14)
[2019-11-22] MEDS: cefTRIAXone(*) 1 GM in NS 0.9% 50 ML* 50 ML IVPB SCH (22:14)
[2019-11-23] MEDS: Albuterol/Ipratropium NEB.SOL* Albuterol 2.5 MG/Ipratropium 0.5 MG 3 ML INH SCH ×4 (01:19→19:32)
[2019-11-23] MEDS: guaiFENesin 100 mg/5 ml LIQ unit dose cup PO SCH ×4 (05:17→22:00)
[2019-11-23] MEDS: DOXYcycline IV* 100 MG in NS 0.9% 250 ML* 250 ML IVPB SCH ×2 (05:43→17:14)
[2019-11-23] MEDS: SPIRIVA Respimat* (tiotropium) 2.5 mcg/inh Inhaler INH SCH ×2 (05:55→07:29)
[2019-11-23] MEDS: Mometasone/Formoter 200/5 MDI INH SCH ×3 (05:55→19:32)
[2019-11-23] MEDS: Albuterol 2.5 MG/3 ML NEB.SOL* (0.083%) INH PRN (05:56)
[2019-11-23 07:07] LABS: ABS Lymphocytes 1.5 10^3/ul (1.0-4.8); ABS Neutrophils 5.3 10^3/ul (1.5-7.7); Hematocrit 37 % (42-52); Hemoglobin 12.4 g/dL (14.0-18.0); Lymphocyte % 18.9 %; Mean Corpuscular HGB Conc 34 g/dL (31-36); Mean Corpuscular Hemoglobin 33 pg (27-31); Mean Corpuscular Volume 98 fL (80-94); Mean Platelet Volume 7.9 fL (7.4-10.4); Nucleated Red Blood Cells % 0.1; Platelet Count 159 10^3/uL (150-450); Red Blood Count 3.73 10^6 /uL (4.18-5.48); Red Cell Distribution Width 16 % (10-15); White Blood Count 7.8 10^3/uL (3.5-10.8)
[2019-11-23] MEDS: Insulin LISPRO* 1 UNITS UNIT SUBCUT SCH ×4 (08:00→22:02)
[2019-11-23] MEDS: metFORMIN* 1,000 MG TAB PO SCH ×2 (10:00→21:49)
[2019-11-23] MEDS: Lisinopril TAB* 10 MG PO SCH (10:00)
[2019-11-23] MEDS: Divalproex Sprinkle CAP* 125 MG PO SCH ×2 (10:00→21:52)
[2019-11-23] MEDS: Escitalopram * 10 MG TAB PO SCH (10:01)
[2019-11-23] MEDS: Haloperidol TAB* 10 MG PO SCH (10:02)
--- NOTE | 2019-11-23 10:04 | PN ---
Subjective Date of Service: 11/23/19 Interval History: Mr. Malhotra is not feeling well today. He was not speak much with me and would only nod/shake his head until asked if he was hungry at which point he woke up and reported that he indeed was hungry and quite thirsty. He does feel SOB. Reports occasional cough and he believes he is choking on his sputum. Denies CP. No concerns from nursing. Family History: Unchanged from Admission Social History: Unchanged from Admission Past Medical History: Unchanged from Admission Objective Active Medications: Acetaminophen (Tylenol Tab*) 650 mg PO Q6H PRN MILD PAIN or TEMP > 100.4 Albuterol (Ventolin 2.5 Mg/3 Ml Neb.Shraddha*) 2.5 mg INH Q2H PRN SOB/WHEEZING Albuterol/Ipratropium (Duoneb (Albuterol 2.5 Mg/Ipratropium 0.5 Mg)) 1 neb INH [id number] AWAKE [facility] Atorvastatin Calcium (Lipitor*) 40 mg PO BEDTIME [facility] Benzonatate (Tessalon Cap*) 100 mg PO BID PRN COUGH Dextrose (D50w Syringe 50 Ml*) 12.5 gm IV PUSH .FOR FS < 60 - SS PRN FS < 60 Divalproex Sodium (Depakote Sprinkle Cap*) 500 mg PO QAM [facility] Divalproex Sodium (Depakote Sprinkle Cap*) 1,000 mg PO BEDTIME [facility] Enoxaparin Sodium (Lovenox(*)) 40 mg SUBCUT Q24H [facility] Escitalopram Oxalate (Lexapro *) 10 mg PO DAILY [facility] Guaifenesin (Robitussin 100 Mg/5ml Liq) 5 ml PO Q6H [facility] Haloperidol (Haldol Tab*) 10 mg PO DAILY [facility] Ceftriaxone Sodium 1 gm/ (Sodium Chloride) 50 mls @ 200 mls/hr IVPB Q24H [facility] Doxycycline Hyclate 100 mg/ (Sodium Chloride) 250 mls @ 250 mls/hr IVPB Q12H [facility] Insulin Glargine (Lantus(*)) 6 units SUBCUT BEDTIME [facility] Insulin Human Lispro (Humalog*) 0 units SUBCUT ACHS [facility]; Protocol Lisinopril (Prinivil Tab*) 40 mg PO DAILY [facility] Metformin HCl (Glucophage*) 1,000 mg PO BID [facility] Mometasone Furoate/Formoterol Fumar (Dulera 200/5 Mdi*) 2 puff INH BID [facility] Ondansetron HCl (Zofran Inj*) 4 mg IV Q6H PRN NAUSEA Prednisone (Deltasone 50 Mg Tab) 50 mg PO DAILY [facility] Tiotropium [place] (Spiriva Respimat 2.5 Mcg) 2 puff INH DAILY [facility] Vital Signs - 8 hr 11/23/19 11/23/19 11/23/19 03:15 05:59 06:01 Temperature 98.1 F Pulse Rate 65 70 70 Respiratory 16 16 16 Rate Blood Pressure 146/54 (mmHg) O2 Sat by Pulse 99 96 96 Oximetry 11/23/19 08:09 Temperature 97.0 F Pulse Rate 69 Respiratory 20 Rate Blood Pressure 162/59 (mmHg) O2 Sat by Pulse 99 Oximetry Oxygen Devices in Use Now: Nasal Cannula - 3L Appearance: Middle-aged male sitting in bed in NAD Ears/Nose/Mouth/Throat: Mucous Membranes Moist Neck: NL Appearance and Movements; NL JVP, Trachea Midline Respiratory: Symmetrical Chest Expansion and Respiratory Effort, - - Rhonchi and wheezing bilat throughout Cardiovascular: NL Sounds; No Murmurs; No JVD, RRR Abdominal: NL Sounds; No Tenderness; No Distention Extremities: No Edema Neurological: Alert and Oriented x 3 Lines/Tubes/Other Access: Clean, Dry and Intact Peripheral IV Nutrition: Taking PO's Result Diagrams: 11/23/19 06:29 11/22/19 05:54 Assess/Plan/Problems-Billing Assessment: Mr. Malhotra is a 64 yo M with PMH of DM2, HTN, schizoaffective bipolar type, HLD, COPD, asthma; who presented to the ED with c/o AMS and SOB and was found to be hypoxic secondary to pneumonia, possibly aspiration-related. - Patient Problems (1) Aspiration pneumonia Code(s): J69.0 - PNEUMONITIS DUE TO INHALATION OF FOOD AND VOMIT Comment: - Presumed aspirational pneumonia likely in view of his swallowing dysfunction - CXR on admission showing right basilar infiltrate with pleural effusion - Negative Legionella and Strep pneumo urine antigens - Episode of suspected aspiration on the night of admission - Speech Therapy consulted; no aspiration noted on assessment, but swallow study showed evidence of aspiration on nectar thick liquids - Mechanical soft diet with honey-thickened liquids - Continue ceftriaxone, doxy (2) Asthma with COPD with exacerbation Code(s): J44.1 - CHRONIC OBSTRUCTIVE PULMONARY DISEASE W (ACUTE) EXACERBATION; J45.901 - UNSPECIFIED ASTHMA WITH (ACUTE) EXACERBATION Comment: - Secondary to pneumonia - Asthma/COPD not well controlled with active smoking - Continue predinsone, Dulera, Spiriva, metanebs (3) Acute respiratory failure with hypoxia Code(s): J96.01 - ACUTE RESPIRATORY FAILURE WITH HYPOXIA Comment: - Requiring 3L oxygen - Secondary to pneumonia - Wean as tolerated (4) Knee laceration Code(s): S81.019A - LACERATION WITHOUT FOREIGN BODY, UNSP KNEE, INIT ENCNTR Comment: - Secondary to fall at home - Received 7 sutures in ED on 11/13, recommended to be removed in 1 week - Sutures removed 11/22 (5) Sepsis Comment: - Resolved - Met criteria on admission with tachycardia and tachypnea; source is pneumonia (6) Oropharyngeal dysphagia Code(s): R13.12 - DYSPHAGIA, OROPHARYNGEAL PHASE Comment: - Honey thick liquids (7) Diabetes Code(s): E11.9 - TYPE 2 DIABETES MELLITUS WITHOUT COMPLICATIONS Comment: - A1c 8.2% - Continue metformin, Lantus, Lispro SS (8) Hypertension Code(s): I10 - ESSENTIAL (PRIMARY) HYPERTENSION Comment: - Hypertensive this morning - Continue lisinopril (9) Schizo-affective schizophrenia Code(s): F25.0 - SCHIZOAFFECTIVE DISORDER, BIPOLAR TYPE Comment: - Continue Depakote, escitalopram, Haldol (10) Hyperlipidemia Code(s): E78.5 - HYPERLIPIDEMIA, UNSPECIFIED Comment: - Continue atorvastatin (11) DVT prophylaxis Code(s): Z29.9 - ENCOUNTER FOR PROPHYLACTIC MEASURES, UNSPECIFIED Comment: - Lovenox (12) Full code status Code(s): Z78.9 - OTHER SPECIFIED HEALTH STATUS Comment: Status and Disposition: Inpatient. Anticipate d/c home when medically stable. Attending: Gary Chambers
[2019-11-23] MEDS: Atorvastatin* 40 MG TAB PO SCH (21:51)
[2019-11-23] MEDS: Insulin GLARGINE(*) 1 UNITS UNIT SUBCUT SCH (22:02)
[2019-11-23] MEDS: Enoxaparin(*) 40 MG/0.4 ML SYR SUBCUT SCH (22:03)
[2019-11-23] MEDS: cefTRIAXone(*) 1 GM in NS 0.9% 50 ML* 50 ML IVPB SCH (22:06)
[2019-11-24] MEDS: Albuterol/Ipratropium NEB.SOL* Albuterol 2.5 MG/Ipratropium 0.5 MG 3 ML INH SCH ×4 (01:05→19:29)
[2019-11-24] MEDS: DOXYcycline IV* 100 MG in NS 0.9% 250 ML* 250 ML IVPB SCH ×2 (04:30→17:10)
[2019-11-24] MEDS: guaiFENesin 100 mg/5 ml LIQ unit dose cup PO SCH ×4 (04:30→21:47)
[2019-11-24] MEDS: Mometasone/Formoter 200/5 MDI INH SCH ×3 (08:15→19:29)
[2019-11-24] MEDS: SPIRIVA Respimat* (tiotropium) 2.5 mcg/inh Inhaler INH SCH ×2 (08:15→13:52)
[2019-11-24] MEDS: Insulin LISPRO* 1 UNITS UNIT SUBCUT SCH ×4 (09:21→22:09)
[2019-11-24] MEDS: metFORMIN* 1,000 MG TAB PO SCH ×2 (09:22→21:47)
[2019-11-24] MEDS: Divalproex Sprinkle CAP* 125 MG PO SCH ×2 (09:22→21:49)
[2019-11-24] MEDS: Escitalopram * 10 MG TAB PO SCH (09:23)
[2019-11-24] MEDS: Haloperidol TAB* 10 MG PO SCH (09:23)
[2019-11-24] MEDS: Lisinopril TAB* 10 MG PO SCH (09:23)
--- NOTE | 2019-11-24 10:47 | PN ---
Subjective Date of Service: 11/24/19 Interval History: Mr. Malhotra is feeling a little better today. He still has his breakfast sitting in front of him and is not sure he wants to eat because he feels as though he still aspirating and states "what's the point [of eating]? I'll just cough it back up later." He does not think that the thickened liquids are necessarily helping. He does know that smoking likely making things worse, but he is not sure he will be able to quit. He is willing to try nicotine patches while in the hospital. Nursing reports mild hypoglycemia this morning. Family History: Unchanged from Admission Social History: Unchanged from Admission Past Medical History: Unchanged from Admission Objective Active Medications: Acetaminophen (Tylenol Tab*) 650 mg PO Q6H PRN MILD PAIN or TEMP > 100.4 Albuterol (Ventolin 2.5 Mg/3 Ml Neb.Shraddha*) 2.5 mg INH Q2H PRN SOB/WHEEZING Albuterol/Ipratropium (Duoneb (Albuterol 2.5 Mg/Ipratropium 0.5 Mg)) 1 neb INH [id number] AWAKE TER[facility] Atorvastatin Calcium (Lipitor*) 40 mg PO BEDTIME [facility] Benzonatate (Tessalon Cap*) 100 mg PO BID PRN COUGH Dextrose (D50w Syringe 50 Ml*) 12.5 gm IV PUSH .FOR FS < 60 - SS PRN FS < 60 Divalproex Sodium (Depakote Sprinkle Cap*) 500 mg PO QAM [facility] Divalproex Sodium (Depakote Sprinkle Cap*) 1,000 mg PO BEDTIME [facility] Enoxaparin Sodium (Lovenox(*)) 40 mg SUBCUT Q24H [facility] Escitalopram Oxalate (Lexapro *) 10 mg PO DAILY [facility] Guaifenesin (Robitussin 100 Mg/5ml Liq) 5 ml PO Q6H [facility] Haloperidol (Haldol Tab*) 10 mg PO DAILY [facility] Ceftriaxone Sodium 1 gm/ (Sodium Chloride) 50 mls @ 200 mls/hr IVPB Q24H [facility] Doxycycline Hyclate 100 mg/ (Sodium Chloride) 250 mls @ 250 mls/hr IVPB Q12H [facility] Insulin Glargine (Lantus(*)) 6 units SUBCUT BEDTIME [facility] Insulin Human Lispro (Humalog*) 0 units SUBCUT ACHS [facility]; Protocol Lisinopril (Prinivil Tab*) 40 mg PO DAILY [facility] Metformin HCl (Glucophage*) 1,000 mg PO BID [facility] Mometasone Furoate/Formoterol Fumar (Dulera 200/5 Mdi*) 2 puff INH BID [facility] Ondansetron HCl (Zofran Inj*) 4 mg IV Q6H PRN NAUSEA Prednisone (Deltasone 50 Mg Tab) 50 mg PO DAILY [facility] Tiotropium [place] (Spiriva Respimat 2.5 Mcg) 2 puff INH DAILY [facility] Vital Signs - 8 hr 11/24/19 11/24/19 03:28 04:50 Temperature 97.2 F Pulse Rate 58 Respiratory 18 Rate Blood Pressure 175/53 164/62 (mmHg) O2 Sat by Pulse 96 Oximetry Oxygen Devices in Use Now: Nasal Cannula - 3L Appearance: Middle-aged male sitting in chair in NAD Ears/Nose/Mouth/Throat: Mucous Membranes Moist Neck: NL Appearance and Movements; NL JVP, Trachea Midline Respiratory: Symmetrical Chest Expansion and Respiratory Effort, - - Scattered rhonchi and wheezing Cardiovascular: NL Sounds; No Murmurs; No JVD, RRR Extremities: No Edema Neurological: Alert and Oriented x 3 Lines/Tubes/Other Access: Clean, Dry and Intact Peripheral IV Nutrition: Taking PO's Result Diagrams: 11/23/19 06:29 11/22/19 05:54 Assess/Plan/Problems-Billing Assessment: Mr. Malhotra is a 64 yo M with PMH of DM2, HTN, schizoaffective bipolar type, HLD, COPD, asthma; who presented to the ED with c/o AMS and SOB and was found to be hypoxic secondary to pneumonia, possibly aspiration-related. - Patient Problems (1) Aspiration pneumonia Code(s): J69.0 - PNEUMONITIS DUE TO INHALATION OF FOOD AND VOMIT Comment: - Presumed aspirational pneumonia likely in view of his swallowing dysfunction - CXR on admission showing right basilar infiltrate with pleural effusion - Negative Legionella and Strep pneumo urine antigens - Episode of suspected aspiration on the night of admission - Speech Therapy consulted; no aspiration noted on assessment, but swallow study showed evidence of aspiration on nectar thick liquids - Mechanical soft diet with honey-thickened liquids - Continue ceftriaxone (day 7), doxy (day 01/06) (2) Asthma with COPD with exacerbation Code(s): J44.1 - CHRONIC OBSTRUCTIVE PULMONARY DISEASE W (ACUTE) EXACERBATION; J45.901 - UNSPECIFIED ASTHMA WITH (ACUTE) EXACERBATION Comment: - Secondary to pneumonia - Asthma/COPD not well controlled with active smoking - Continue predinsone, Dulera, Spiriva, metanebs (3) Acute respiratory failure with hypoxia Code(s): J96.01 - ACUTE RESPIRATORY FAILURE WITH HYPOXIA Comment: - Requiring 3L oxygen - Secondary to pneumonia - Wean as tolerated (4) Knee laceration Code(s): S81.019A - LACERATION WITHOUT FOREIGN BODY, UNSP KNEE, INIT ENCNTR Comment: - Secondary to fall at home - Received 7 sutures in ED on 11/13, recommended to be removed in 1 week - Sutures removed 11/22 (5) Sepsis Comment: - Resolved - Met criteria on admission with tachycardia and tachypnea; source is pneumonia (6) Oropharyngeal dysphagia Code(s): R13.12 - DYSPHAGIA, OROPHARYNGEAL PHASE Comment: - Honey thick liquids (7) Diabetes Code(s): E11.9 - TYPE 2 DIABETES MELLITUS WITHOUT COMPLICATIONS Comment: - A1c 8.2% - Continue metformin, Lantus, Lispro SS (8) Hypertension Code(s): I10 - ESSENTIAL (PRIMARY) HYPERTENSION Comment: - Hypertensive this morning - Continue lisinopril; start amlodipine (9) Schizo-affective schizophrenia Code(s): F25.0 - SCHIZOAFFECTIVE DISORDER, BIPOLAR TYPE Comment: - Continue Depakote, escitalopram, Haldol (10) Hyperlipidemia Code(s): E78.5 - HYPERLIPIDEMIA, UNSPECIFIED Comment: - Continue atorvastatin (11) DVT prophylaxis Code(s): Z29.9 - ENCOUNTER FOR PROPHYLACTIC MEASURES, UNSPECIFIED Comment: - Lovenox (12) Full code status Code(s): Z78.9 - OTHER SPECIFIED HEALTH STATUS Comment: Status and Disposition: Inpatient. Anticipate d/c home when medically stable. Attending: Gary Chambers
[2019-11-24] MEDS: amLODIPine TAB* 5 MG PO SCH (12:38)
[2019-11-24] MEDS: Magnesium Oxide TAB* 400 MG PO SCH (12:38)
[2019-11-24] MEDS: cefTRIAXone(*) 1 GM in NS 0.9% 50 ML* 50 ML IVPB SCH (21:41)
[2019-11-24] MEDS: Enoxaparin(*) 40 MG/0.4 ML SYR SUBCUT SCH (21:45)
[2019-11-24] MEDS: Atorvastatin* 40 MG TAB PO SCH (21:47)
[2019-11-24] MEDS: Insulin GLARGINE(*) 1 UNITS UNIT SUBCUT SCH (22:10)
[2019-11-25] MEDS: Albuterol/Ipratropium NEB.SOL* Albuterol 2.5 MG/Ipratropium 0.5 MG 3 ML INH SCH ×4 (01:32→19:30)
[2019-11-25] MEDS: guaiFENesin 100 mg/5 ml LIQ unit dose cup PO SCH ×4 (04:43→22:32)
[2019-11-25] MEDS: DOXYcycline IV* 100 MG in NS 0.9% 250 ML* 250 ML IVPB SCH ×2 (04:43→17:09)
[2019-11-25] MEDS: Mometasone/Formoter 200/5 MDI INH SCH ×2 (07:23→19:30)
[2019-11-25] MEDS: SPIRIVA Respimat* (tiotropium) 2.5 mcg/inh Inhaler INH SCH (07:23)
[2019-11-25] MEDS: Insulin LISPRO* 1 UNITS UNIT SUBCUT SCH ×4 (08:08→21:42)
[2019-11-25] MEDS: Acetaminophen TAB* 325 MG PO PRN (08:52)
[2019-11-25] MEDS: Escitalopram * 10 MG TAB PO SCH (08:53)
[2019-11-25] MEDS: amLODIPine TAB* 5 MG PO SCH (08:53)
[2019-11-25] MEDS: metFORMIN* 1,000 MG TAB PO SCH ×2 (08:53→21:43)
[2019-11-25] MEDS: Magnesium Oxide TAB* 400 MG PO SCH (08:53)
[2019-11-25] MEDS: Lisinopril TAB* 10 MG PO SCH (08:54)
[2019-11-25] MEDS: Haloperidol TAB* 10 MG PO SCH (08:54)
[2019-11-25] MEDS: Divalproex Sprinkle CAP* 125 MG PO SCH ×2 (08:54→21:43)
[2019-11-25] MEDS ORDERED: Acetaminophen ADULT LIQ* 650 MG/20.3 ML UDC PO PRN (09:14)
--- NOTE | 2019-11-25 10:17 | PN ---
Subjective Date of Service: 11/25/19 Interval History: Mr. Malhotra is feeling okay today. He offers no specific complaints. He thinks his cough and sputum production have improved. Denies SOB or CP. He did eat breakfast this morning and reports that he typically eats very quickly and always has. He is not sure if this is a habit he can change. He also does not think he will continue to thicken his liquids when he goes home. No concerns from nursing. Family History: Unchanged from Admission Social History: Unchanged from Admission Past Medical History: Unchanged from Admission Objective Active Medications: Acetaminophen (Tylenol Adult Liq*) 650 mg PO Q6H PRN MILD PAIN or TEMP > 100.4 Albuterol (Ventolin 2.5 Mg/3 Ml Neb.Shraddha*) 2.5 mg INH Q2H PRN SOB/WHEEZING Albuterol/Ipratropium (Duoneb (Albuterol 2.5 Mg/Ipratropium 0.5 Mg)) 1 neb INH [id number] AWAKE TERES[facility] Amlodipine Besylate (Norvasc Tab*) 5 mg PO DAILY [facility] Atorvastatin Calcium (Lipitor*) 40 mg PO BEDTIME [facility] Benzonatate (Tessalon Cap*) 100 mg PO BID PRN COUGH Divalproex Sodium (Depakote Sprinkle Cap*) 500 mg PO QAM [facility] Divalproex Sodium (Depakote Sprinkle Cap*) 1,000 mg PO BEDTIME [facility] Enoxaparin Sodium (Lovenox(*)) 40 mg SUBCUT Q24H [facility] Escitalopram Oxalate (Lexapro *) 10 mg PO DAILY [facility] Guaifenesin (Robitussin 100 Mg/5ml Liq) 5 ml PO Q6H [facility] Haloperidol (Haldol Tab*) 10 mg PO DAILY [facility] Ceftriaxone Sodium 1 gm/ (Sodium Chloride) 50 mls @ 200 mls/hr IVPB Q24H [facility] Doxycycline Hyclate 100 mg/ (Sodium Chloride) 250 mls @ 250 mls/hr IVPB Q12H [facility] Insulin Human Lispro (Humalog*) 0 units SUBCUT ACHS [facility]; Protocol Lisinopril (Prinivil Tab*) 40 mg PO DAILY [facility] Magnesium Oxide (Magox 400 Tab*) 400 mg PO DAILY [facility] Metformin HCl (Glucophage*) 1,000 mg PO BID [facility] Mometasone Furoate/Formoterol Fumar (Dulera 200/5 Mdi*) 2 puff INH BID [facility] Ondansetron HCl (Zofran Inj*) 4 mg IV Q6H PRN NAUSEA Prednisone (Deltasone 50 Mg Tab) 50 mg PO DAILY [facility] Tiotropium [place] (Spiriva Respimat 2.5 Mcg) 2 puff INH DAILY [facility] Vital Signs - 8 hr 11/25/19 11/25/19 11/25/19 03:15 07:28 07:37 Temperature 97.8 F Pulse Rate 56 56 56 Respiratory 18 20 20 Rate Blood Pressure 166/51 (mmHg) O2 Sat by Pulse 98 93 93 Oximetry 11/25/19 07:58 Temperature Pulse Rate 55 Respiratory 16 Rate Blood Pressure 157/55 (mmHg) O2 Sat by Pulse 98 Oximetry Oxygen Devices in Use Now: Nasal Cannula - 2L Appearance: Middle-aged male sitting in bed in NAD Ears/Nose/Mouth/Throat: Mucous Membranes Moist Neck: NL Appearance and Movements; NL JVP, Trachea Midline Respiratory: Symmetrical Chest Expansion and Respiratory Effort, - - Expiratory wheezing throughout Cardiovascular: NL Sounds; No Murmurs; No JVD, RRR Abdominal: NL Sounds; No Tenderness; No Distention Extremities: No Edema Neurological: Alert and Oriented x 3 Lines/Tubes/Other Access: Clean, Dry and Intact Peripheral IV Nutrition: Taking PO's Result Diagrams: 11/23/19 06:29 11/22/19 05:54 Assess/Plan/Problems-Billing Assessment: Mr. Malhotra is a 64 yo M with PMH of DM2, HTN, schizoaffective bipolar type, HLD, COPD, asthma; who presented to the ED with c/o AMS and SOB and was found to be hypoxic secondary to pneumonia, possibly aspiration-related. - Patient Problems (1) Aspiration pneumonia Code(s): J69.0 - PNEUMONITIS DUE TO INHALATION OF FOOD AND VOMIT Comment: - Presumed aspirational pneumonia likely in view of his swallowing dysfunction; episode of suspected aspiration on the night of admission - CXR on admission showing right basilar infiltrate with pleural effusion - Negative Legionella and Strep pneumo urine antigens - Speech Therapy consulted; no aspiration noted on assessment, but swallow study showed evidence of aspiration on nectar thick liquids - Pureed diet with honey-thickened liquids - Continue ceftriaxone (day 67), doxy (day 02/05) (2) Asthma with COPD with exacerbation Code(s): J44.1 - CHRONIC OBSTRUCTIVE PULMONARY DISEASE W (ACUTE) EXACERBATION; J45.901 - UNSPECIFIED ASTHMA WITH (ACUTE) EXACERBATION Comment: - Secondary to pneumonia - Asthma/COPD not well controlled with active smoking - Continue predinsone, Dulera, Spiriva, nebs (3) Acute respiratory failure with hypoxia Code(s): J96.01 - ACUTE RESPIRATORY FAILURE WITH HYPOXIA Comment: - Requiring 2L oxygen - Secondary to pneumonia/COPD exacerbation - Wean as tolerated (4) Knee laceration Code(s): S81.019A - LACERATION WITHOUT FOREIGN BODY, UNSP KNEE, INIT ENCNTR Comment: - Secondary to fall at home - Received 7 sutures in ED on 11/13, recommended to be removed in 1 week - Sutures removed 11/22 (5) Sepsis Comment: - Resolved - Met criteria on admission with tachycardia and tachypnea; source is pneumonia (6) Oropharyngeal dysphagia Code(s): R13.12 - DYSPHAGIA, OROPHARYNGEAL PHASE Comment: - Honey thick liquids (7) Diabetes Code(s): E11.9 - TYPE 2 DIABETES MELLITUS WITHOUT COMPLICATIONS Comment: - Hypoglycemic this morning - A1c 8.2% - Continue metformin, Lispro SS; d/c Lantus (8) Hypertension Code(s): I10 - ESSENTIAL (PRIMARY) HYPERTENSION Comment: - Remains hypertensive this morning - Continue lisinopril, amlodipine (9) Schizo-affective schizophrenia Code(s): F25.0 - SCHIZOAFFECTIVE DISORDER, BIPOLAR TYPE Comment: - Continue Depakote, escitalopram, Haldol (10) Hyperlipidemia Code(s): E78.5 - HYPERLIPIDEMIA, UNSPECIFIED Comment: - Continue atorvastatin (11) DVT prophylaxis Code(s): Z29.9 - ENCOUNTER FOR PROPHYLACTIC MEASURES, UNSPECIFIED Comment: - Lovenox (12) Full code status Code(s): Z78.9 - OTHER SPECIFIED HEALTH STATUS Comment: Status and Disposition: Inpatient. Anticipate d/c home when medically stable. Attending: Gary Chambers
[2019-11-25] MEDS: Atorvastatin* 40 MG TAB PO SCH (21:42)
[2019-11-25] MEDS: cefTRIAXone(*) 1 GM in NS 0.9% 50 ML* 50 ML IVPB SCH (21:44)
[2019-11-25] MEDS: Enoxaparin(*) 40 MG/0.4 ML SYR SUBCUT SCH (22:32)
[2019-11-26] MEDS: Albuterol/Ipratropium NEB.SOL* Albuterol 2.5 MG/Ipratropium 0.5 MG 3 ML INH SCH ×4 (02:50→19:12)
[2019-11-26] MEDS: DOXYcycline IV* 100 MG in NS 0.9% 250 ML* 250 ML IVPB SCH ×2 (04:52→16:53)
[2019-11-26] MEDS: guaiFENesin 100 mg/5 ml LIQ unit dose cup PO SCH ×4 (04:53→22:28)
[2019-11-26] MEDS: Mometasone/Formoter 200/5 MDI INH SCH ×2 (07:33→19:12)
[2019-11-26] MEDS: SPIRIVA Respimat* (tiotropium) 2.5 mcg/inh Inhaler INH SCH (07:33)
[2019-11-26] MEDS: metFORMIN* 1,000 MG TAB PO SCH ×2 (08:50→22:02)
[2019-11-26] MEDS: amLODIPine TAB* 5 MG PO SCH (08:52)
[2019-11-26] MEDS: Escitalopram * 10 MG TAB PO SCH (08:52)
[2019-11-26] MEDS: Magnesium Oxide TAB* 400 MG PO SCH (08:52)
[2019-11-26] MEDS: Haloperidol TAB* 10 MG PO SCH (08:53)
[2019-11-26] MEDS: Lisinopril TAB* 10 MG PO SCH (08:54)
[2019-11-26] MEDS: Divalproex Sprinkle CAP* 125 MG PO SCH ×2 (08:55→21:58)
--- NOTE | 2019-11-26 08:56 | PN ---
Subjective Date of Service: 11/26/19 Interval History: Mr. Malhotra is feeling okay today. The IV in his right arm is bothering him, but not necessarily painful. Not feeling SOB. He thinks he is coughing less and not as much after eating. He really wants to go home and smoke. Patient desated to 89% on RA at rest this morning, currently 93% on 1L at rest. Family History: Unchanged from Admission Social History: Unchanged from Admission Past Medical History: Unchanged from Admission Objective Active Medications: Acetaminophen (Tylenol Adult Liq*) 650 mg PO Q6H PRN MILD PAIN or TEMP > 100.4 Albuterol (Ventolin 2.5 Mg/3 Ml Neb.Shraddha*) 2.5 mg INH Q2H PRN SOB/WHEEZING Albuterol/Ipratropium (Duoneb (Albuterol 2.5 Mg/Ipratropium 0.5 Mg)) 1 neb INH [id number] AWAKE [facility] Amlodipine Besylate (Norvasc Tab*) 5 mg PO DAILY [facility] Atorvastatin Calcium (Lipitor*) 40 mg PO BEDTIME [facility] Benzonatate (Tessalon Cap*) 100 mg PO BID PRN COUGH Divalproex Sodium (Depakote Sprinkle Cap*) 500 mg PO QAM [facility] Divalproex Sodium (Depakote Sprinkle Cap*) 1,000 mg PO BEDTIME [facility] Enoxaparin Sodium (Lovenox(*)) 40 mg SUBCUT Q24H [facility] Escitalopram Oxalate (Lexapro *) 10 mg PO DAILY [facility] Guaifenesin (Robitussin 100 Mg/5ml Liq) 5 ml PO Q6H [facility] Haloperidol (Haldol Tab*) 10 mg PO DAILY [facility] Ceftriaxone Sodium 1 gm/ (Sodium Chloride) 50 mls @ 200 mls/hr IVPB Q24H [facility] Doxycycline Hyclate 100 mg/ (Sodium Chloride) 250 mls @ 250 mls/hr IVPB Q12H [facility] Insulin Human Lispro (Humalog*) 0 units SUBCUT ACHS [facility]; Protocol Lisinopril (Prinivil Tab*) 40 mg PO DAILY [facility] Magnesium Oxide (Magox 400 Tab*) 400 mg PO DAILY [facility] Metformin HCl (Glucophage*) 1,000 mg PO BID [facility] Mometasone Furoate/Formoterol Fumar (Dulera 200/5 Mdi*) 2 puff INH BID [facility] Ondansetron HCl (Zofran Inj*) 4 mg IV Q6H PRN [facility]USE[facility] Prednisone (Deltasone 50 Mg Tab) 50 mg PO DAILY [facility] Tiotropium [place] (Spiriva Respimat 2.5 Mcg) 2 puff INH DAILY [facility] Vital Signs - 8 hr 11/26/19 11/26/19 11/26/19 04:03 07:36 07:56 Temperature 97.9 F 97.4 F Pulse Rate 69 56 69 Respiratory 16 1 18 Rate Blood Pressure 172/65 (mmHg) O2 Sat by Pulse 95 99 89 Oximetry Oxygen Devices in Use Now: Nasal Cannula - 1L Appearance: Middle-aged male lying in bed in NAD Ears/Nose/Mouth/Throat: Mucous Membranes Moist Neck: NL Appearance and Movements; NL JVP, Trachea Midline Respiratory: Symmetrical Chest Expansion and Respiratory Effort, - - Wheezing throughout Cardiovascular: NL Sounds; No Murmurs; No JVD, RRR Abdominal: NL Sounds; No Tenderness; No Distention Extremities: No Edema Neurological: Alert and Oriented x 3 Lines/Tubes/Other Access: Clean, Dry and Intact Peripheral IV Nutrition: Taking PO's Result Diagrams: 11/23/19 06:29 11/22/19 05:54 Assess/Plan/Problems-Billing Assessment: Mr. Malhotra is a 64 yo M with PMH of DM2, HTN, schizoaffective bipolar type, HLD, COPD, asthma; who presented to the ED with c/o AMS and SOB and was found to be hypoxic secondary to pneumonia, possibly aspiration-related. - Patient Problems (1) Aspiration pneumonia Code(s): J69.0 - PNEUMONITIS DUE TO INHALATION OF FOOD AND VOMIT Comment: - Presumed aspirational pneumonia likely in view of his swallowing dysfunction; episode of suspected aspiration on the night of admission - CXR on admission showing right basilar infiltrate with pleural effusion - Negative Legionella and Strep pneumo urine antigens - Speech Therapy consulted; no aspiration noted on assessment, but swallow study showed evidence of aspiration on nectar thick liquids - Pureed diet with honey-thickened liquids - Continue ceftriaxone (day 7/7), doxy (day 6/7) (2) Asthma with COPD with exacerbation Code(s): J44.1 - CHRONIC OBSTRUCTIVE PULMONARY DISEASE W (ACUTE) EXACERBATION; J45.901 - UNSPECIFIED ASTHMA WITH (ACUTE) EXACERBATION Comment: - Still significant wheezing on exam - Secondary to pneumonia - Asthma/COPD not well controlled with active smoking - Continue predinsone (increase from 50mg to 60mg), Dulera, Spiriva, nebs (3) Acute respiratory failure with hypoxia Code(s): J96.01 - ACUTE RESPIRATORY FAILURE WITH HYPOXIA Comment: - Requiring 1L oxygen - Secondary to pneumonia/COPD exacerbation - Walk test today - Wean as tolerated (4) Knee laceration Code(s): S81.019A - LACERATION WITHOUT FOREIGN BODY, UNSP KNEE, INIT ENCNTR Comment: - Secondary to fall at home - Received 7 sutures in ED on 11/13, recommended to be removed in 1 week - Sutures removed 11/22 (5) Sepsis Comment: - Resolved - Met criteria on admission with tachycardia and tachypnea; source is pneumonia (6) Oropharyngeal dysphagia Code(s): R13.12 - DYSPHAGIA, OROPHARYNGEAL PHASE Comment: - Honey thick liquids per Speech Therapy (7) Diabetes Code(s): E11.9 - TYPE 2 DIABETES MELLITUS WITHOUT COMPLICATIONS Comment: - A1c 8.2% - Lantus d/c'd d/t morning hypoglycemia - Continue metformin, Lispro SS (8) Hypertension Code(s): I10 - ESSENTIAL (PRIMARY) HYPERTENSION Comment: - Remains intermittently hypertensive - Continue lisinopril, amlodipine (9) Schizo-affective schizophrenia Code(s): F25.0 - SCHIZOAFFECTIVE DISORDER, BIPOLAR TYPE Comment: - Continue Depakote, escitalopram, Haldol (10) Hyperlipidemia Code(s): E78.5 - HYPERLIPIDEMIA, UNSPECIFIED Comment: - Continue atorvastatin (11) DVT prophylaxis Code(s): Z29.9 - ENCOUNTER FOR PROPHYLACTIC MEASURES, UNSPECIFIED Comment: - Lovenox (12) Full code status Code(s): Z78.9 - OTHER SPECIFIED HEALTH STATUS Comment: Status and Disposition: Inpatient. Anticipate d/c home when medically stable, hopefully in the next 1-2 days. Attending: Gary Chambers
[2019-11-26] MEDS: Insulin LISPRO* 1 UNITS UNIT SUBCUT SCH ×4 (08:57→22:03)
[2019-11-26] MEDS: cefTRIAXone(*) 1 GM in NS 0.9% 50 ML* 50 ML IVPB SCH (22:00)
[2019-11-26] MEDS: Atorvastatin* 40 MG TAB PO SCH (22:02)
[2019-11-26] MEDS: Enoxaparin(*) 40 MG/0.4 ML SYR SUBCUT SCH (22:28)
[2019-11-27] MEDS: Albuterol/Ipratropium NEB.SOL* Albuterol 2.5 MG/Ipratropium 0.5 MG 3 ML INH SCH ×4 (00:55→20:04)
[2019-11-27] MEDS: guaiFENesin 100 mg/5 ml LIQ unit dose cup PO SCH ×4 (05:08→22:02)
[2019-11-27] MEDS: DOXYcycline IV* 100 MG in NS 0.9% 250 ML* 250 ML IVPB SCH (05:09)
[2019-11-27] MEDS: Insulin LISPRO* 1 UNITS UNIT SUBCUT SCH ×4 (07:31→22:08)
[2019-11-27] MEDS: SPIRIVA Respimat* (tiotropium) 2.5 mcg/inh Inhaler INH SCH (07:50)
[2019-11-27] MEDS: Mometasone/Formoter 200/5 MDI INH SCH ×2 (07:51→20:05)
[2019-11-27] MEDS: Magnesium Oxide TAB* 400 MG PO SCH (08:54)
[2019-11-27] MEDS: Lisinopril TAB* 10 MG PO SCH (08:54)
[2019-11-27] MEDS: Haloperidol TAB* 10 MG PO SCH (08:55)
[2019-11-27] MEDS: metFORMIN* 1,000 MG TAB PO SCH ×2 (08:55→22:03)
[2019-11-27] MEDS: amLODIPine TAB* 5 MG PO SCH (08:55)
[2019-11-27] MEDS: Divalproex Sprinkle CAP* 125 MG PO SCH ×2 (08:55→22:03)
[2019-11-27] MEDS: Escitalopram * 10 MG TAB PO SCH (08:56)
--- NOTE | 2019-11-27 14:41 | PN ---
Subjective Date of Service: 11/27/19 Interval History: Patient is very anxious to go home. Patient denies SOB, coughing after eating, Chest pain, F/C, Abdominal pain, diarrhea, dizziness, palpitations, or other pain. Patient was initially reluctant to wearing oxygen and having dietary texture changes, but patient was able to be persuaded to do these interventions when D/C'd. Family History: Unchanged from Admission Social History: Unchanged from Admission Past Medical History: Unchanged from Admission Objective Active Medications: Acetaminophen (Tylenol Adult Liq*) 650 mg PO Q6H PRN PRN Reason: MILD PAIN or TEMP > 100.4 Last Admin: 11/25/19 09:29 Dose: 650 mg Albuterol (Ventolin 2.5 Mg/3 Ml Neb.Shraddha*) 2.5 mg INH Q2H PRN PRN Reason: SOB/WHEEZING Last Admin: 11/23/19 05:56 Dose: 2.5 mg Albuterol/Ipratropium (Duoneb (Albuterol 2.5 Mg/Ipratropium 0.5 Mg)) 1 neb INH [id number] AWAKE [facility] Last Admin: 11/27/19 13:02 Dose: 1 neb Amlodipine Besylate (Norvasc Tab*) 5 mg PO DAILY [facility] Last Admin: 11/27/19 08:55 Dose: 5 mg Atorvastatin Calcium (Lipitor*) 40 mg PO BEDTIME [facility] Last Admin: 11/26/19 22:02 Dose: 40 mg Benzonatate (Tessalon Cap*) 100 mg PO BID PRN PRN Reason: COUGH Last Admin: 11/22/19 08:13 Dose: 100 mg Divalproex Sodium (Depakote Sprinkle Cap*) 500 mg PO QAM [facility] Last Admin: 11/27/19 08:55 Dose: 500 mg Divalproex Sodium (Depakote Sprinkle Cap*) 1,000 mg PO BEDTIME [facility] Last Admin: 11/26/19 21:58 Dose: 1,000 mg Enoxaparin Sodium (Lovenox(*)) 40 mg SUBCUT Q24H [facility] Last Admin: 11/26/19 22:28 Dose: 40 mg Escitalopram Oxalate (Lexapro *) 10 mg PO DAILY [facility] Last Admin: 11/27/19 08:56 Dose: 10 mg Guaifenesin (Robitussin 100 Mg/5ml Liq) 5 ml PO Q6H [facility] Last Admin: 11/27/19 12:26 Dose: 5 ml Haloperidol (Haldol Tab*) 10 mg PO DAILY [facility] Last Admin: 11/27/19 08:55 Dose: 10 mg Doxycycline Hyclate 100 mg/ (Sodium Chloride) 250 mls @ 250 mls/hr IVPB Q12H [facility] Last Admin: 11/27/19 05:09 Dose: 250 mls/hr Insulin Human Lispro (Humalog*) 0 units SUBCUT ACHS [facility]; Protocol Last Admin: 11/27/19 12:27 Dose: 10 units Lisinopril (Prinivil Tab*) 40 mg PO DAILY [facility] Last Admin: 11/27/19 08:54 Dose: 40 mg Magnesium Oxide (Magox 400 Tab*) 400 mg PO DAILY [facility] Last Admin: 11/27/19 08:54 Dose: 400 mg Metformin HCl (Glucophage*) 1,000 mg PO BID [facility] Last Admin: 11/27/19 08:55 Dose: 1,000 mg Mometasone Furoate/Formoterol Fumar (Dulera 200/5 Mdi*) 2 puff INH BID [facility] Last Admin: 11/27/19 07:51 Dose: 2 puff Ondansetron HCl (Zofran Inj*) 4 mg IV Q6H PRN PRN Reason: NAUSEA Prednisone (Deltasone 20 Mg Tab) 60 mg PO DAILY [facility] Last Admin: 11/27/19 08:55 Dose: 60 mg Tiotropium [place] (Spiriva Respimat 2.5 Mcg) 2 puff INH DAILY [facility] Last Admin: 11/27/19 07:50 Dose: 2 puff Vital Signs - 8 hr 11/27/19 11/27/19 11/27/19 07:15 08:00 08:03 Temperature 97.0 F Pulse Rate 49 Respiratory 16 20 Rate Blood Pressure 175/60 (mmHg) O2 Sat by Pulse 93 85 Oximetry 11/27/19 11/27/19 11/27/19 09:09 09:17 11:15 Temperature 97.1 F Pulse Rate 59 60 51 Respiratory 14 15 20 Rate Blood Pressure 165/60 (mmHg) O2 Sat by Pulse 96 96 95 Oximetry Oxygen Devices in Use Now: Nasal Cannula Appearance: Patient is a 64yo male who appears older than stated age and is sitting in the bed in NAD. Eyes: No Scleral Icterus, PERRLA Ears/Nose/Mouth/Throat: NL Teeth, Lips, Gums, Clear Oropharnyx, Mucous Membranes Moist Neck: NL Appearance and Movements; NL JVP, Trachea Midline Respiratory: Symmetrical Chest Expansion and Respiratory Effort, - - Wheezing in the B/L lungs throughout with slight rhonchi. Cardiovascular: NL Sounds; No Murmurs; No JVD, RRR, No Edema Abdominal: NL Sounds; No Tenderness; No Distention, No Hepatosplenomegaly Lymphatic: No Cervical Adenopathy Extremities: No Edema, No Clubbing, Cyanosis Skin: No Rash or Ulcers, No Nodules or Sclerosis Neurological: Alert and Oriented x 3, NL Sensation, NL Muscle Strength and Tone , - - CN II-XII intact. Result Diagrams: 11/23/19 06:29 11/22/19 05:54 Microbiology and Other Data: Microbiology 11/20/19 21:03 Aerobic Blood Culture - Preliminary Blood Venous No Growth Day 2 Anaerobic Blood Culture - Preliminary No Growth Day 2 11/20/19 20:50 Aerobic Blood Culture - Preliminary Blood Venous No Growth Day 2 Anaerobic Blood Culture - Preliminary No Growth Day 2 11/20/19 21:20 Urine Culture - Final Urine No Growth (<1,000 CFU/mL) 11/21/19 17:16 Gram Stain - Final Sputum Expectorated 11/21/19 00:22 Legionella Urinary Antigen - Final Urine Negative Legionella Antigen Streptococcus pneumoniae Ag Screen - Final Negative S. pneumo Antigen Assess/Plan/Problems-Billing Assessment: Mr. Malhotra is a 64 yo M with PMH of DM2, HTN, schizoaffective bipolar type, HLD, COPD, asthma; who presented to the ED with c/o AMS and SOB and was found to be hypoxic secondary to pneumonia and COPD Exacerbation, possibly aspiration- related. - Patient Problems (1) Acute respiratory failure with hypoxia Current Visit: Yes Status: Acute Code(s): J96.01 - ACUTE RESPIRATORY FAILURE WITH HYPOXIA SNOMED Code(s): 96351516 Comment: - Requiring 1L oxygen - Secondary to pneumonia/COPD exacerbation - Persistently hypoxic with ambulation, may need chronic oxygen therapy with ambulation - Wean as tolerated (2) Aspiration pneumonia Current Visit: Yes Status: Acute Code(s): J69.0 - PNEUMONITIS DUE TO INHALATION OF FOOD AND VOMIT SNOMED Code(s): 442402176 Comment: - Presumed aspirational pneumonia likely in view of his swallowing dysfunction; episode of suspected aspiration on the night of admission - CXR on admission showing right basilar infiltrate with pleural effusion - Negative Legionella and Strep pneumo urine antigens - Speech Therapy consulted; no aspiration noted on assessment, but swallow study showed evidence of aspiration on nectar thick liquids - Pureed diet with honey-thickened liquids -Completed ceftriaxone (day 04/07), doxy (day 04/07) (3) Hyperlipidemia Current Visit: Yes Status: Acute Code(s): E78.5 - HYPERLIPIDEMIA, UNSPECIFIED SNOMED Code(s): 23599406 Comment: - Continue atorvastatin (4) Knee laceration Current Visit: Yes Status: Acute Code(s): S81.019A - LACERATION WITHOUT FOREIGN BODY, UNSP KNEE, INIT ENCNTR SNOMED Code(s): 373298687 Comment: - Secondary to fall at home - Sutures removed 11/22 - Questionable infection, treated fully with antibiotics for CAP (5) Sepsis Current Visit: Yes Status: Acute Comment: - Resolved - Met criteria on admission with tachycardia and tachypnea; source is pneumonia (6) Asthma with COPD with exacerbation Current Visit: No Status: Acute Code(s): J44.1 - CHRONIC OBSTRUCTIVE PULMONARY DISEASE W (ACUTE) EXACERBATION; J45.901 - UNSPECIFIED ASTHMA WITH ( ACUTE) EXACERBATION SNOMED Code(s): 4798553761192 Comment: - Still significant wheezing on exam - Secondary to pneumonia - Asthma/COPD not well controlled with active smoking and aspirations - Continue prednisone, Dulera, Spiriva, nebs (7) Hypertension Current Visit: No Status: Acute Code(s): I10 - ESSENTIAL (PRIMARY) HYPERTENSION SNOMED Code(s): 52636759 Comment: - Remains intermittently hypertensive - Continue lisinopril, amlodipine (8) Oropharyngeal dysphagia Current Visit: No Status: Acute Code(s): R13.12 - DYSPHAGIA, OROPHARYNGEAL PHASE SNOMED Code(s): 33893629 Comment: - Honey thick liquids and pureed texture per Speech Therapy (9) Schizo-affective schizophrenia Current Visit: No Status: Acute Code(s): F25.0 - SCHIZOAFFECTIVE DISORDER, BIPOLAR TYPE SNOMED Code(s): 176834886 Comment: - Continue Depakote, escitalopram, Haldol (10) Tobacco use disorder Current Visit: No Status: Acute Code(s): F17.200 - NICOTINE DEPENDENCE, UNSPECIFIED, UNCOMPLICATED SNOMED Code(s): 445986316 Comment: - Precontemplative with smoking cessation. (11) Full code status Current Visit: No Status: Acute Code(s): Z78.9 - OTHER SPECIFIED HEALTH STATUS SNOMED Code(s): 382261591 Comment: (12) DVT prophylaxis Current Visit: No Status: Acute Code(s): Z29.9 - ENCOUNTER FOR PROPHYLACTIC MEASURES, UNSPECIFIED SNOMED Code(s): 318346406 Comment: - Lovenox Status and Disposition: Inpatient. Anticipate d/c to [facility] when stable as he is unable to go back to [place].
[2019-11-27] MEDS: Atorvastatin* 40 MG TAB PO SCH (22:03)
[2019-11-27] MEDS: Enoxaparin(*) 40 MG/0.4 ML SYR SUBCUT SCH (22:08)
[2019-11-28] MEDS: Albuterol/Ipratropium NEB.SOL* Albuterol 2.5 MG/Ipratropium 0.5 MG 3 ML INH SCH ×4 (02:32→20:39)
[2019-11-28] MEDS: guaiFENesin 100 mg/5 ml LIQ unit dose cup PO SCH ×4 (05:43→22:45)
[2019-11-28] MEDS: Mometasone/Formoter 200/5 MDI INH SCH ×3 (06:53→20:40)
[2019-11-28] MEDS: SPIRIVA Respimat* (tiotropium) 2.5 mcg/inh Inhaler INH SCH ×2 (06:57→07:50)
[2019-11-28] MEDS: Insulin LISPRO* 1 UNITS UNIT SUBCUT SCH ×4 (08:11→20:40)
[2019-11-28] MEDS: Divalproex Sprinkle CAP* 125 MG PO SCH ×2 (10:16→20:40)
[2019-11-28] MEDS: amLODIPine TAB* 5 MG PO SCH (10:16)
[2019-11-28] MEDS: Lisinopril TAB* 10 MG PO SCH (10:16)
[2019-11-28] MEDS: metFORMIN* 1,000 MG TAB PO SCH ×2 (10:16→20:40)
[2019-11-28] MEDS: Escitalopram * 10 MG TAB PO SCH (10:16)
[2019-11-28] MEDS: Magnesium Oxide TAB* 400 MG PO SCH (10:16)
[2019-11-28] MEDS: Haloperidol TAB* 10 MG PO SCH (10:23)
[2019-11-28] MEDS: Atorvastatin* 40 MG TAB PO SCH (20:40)
--- NOTE | 2019-11-28 22:15 | DS ---
CC: CASSIDY Parra * DISCHARGE SUMMARY: DATE OF ADMISSION: 11/20/19 DATE OF DISCHARGE: 11/29/19 PRIMARY CARE PROVIDER: CASSIDY Parra MY ATTENDING WHILE IN THE HOSPITAL: Dr. Gary Chambers.* (DICTATED BY CASSIDY PACE) PRIMARY DISCHARGE DIAGNOSES: 1. Aspiration pneumonia. 2. Chronic obstructive pulmonary disease exacerbation. 3. Acute on chronic hypoxic respiratory failure. 4. Oropharyngeal dysphagia. SECONDARY DISCHARGE DIAGNOSES: 1. Diabetes mellitus type 2. 2. Hypertension. 3. Hyperlipidemia. 4. Schizoaffective disorder, bipolar type. 5. History of squamous cell carcinoma. 6. Eczema. STUDIES DONE WHILE IN THE HOSPITAL: Chest x-ray from 11/20/19 read as small chronic right basilar infiltrate versus atelectasis or scarring with adjacent pleural thickening also unchanged. Video fluoroscopic swallow from 11/21/19 read as aspiration with nectar thick liquids. MEDICATIONS AT DISCHARGE: 1. Lipitor 40 mg p.o. at bedtime. 2. Albuterol inhaler 2 puffs inhalation q.4 hours as needed. 3. Lisinopril 20 mg p.o. daily. 4. Lexapro 10 mg p.o. daily. 5. Divalproex 500 mg p.o. daily. 6. Divalproex 1000 mg p.o. at bedtime. 7. Metformin 1000 mg p.o. b.i.d. 8. Haloperidol 10 mg p.o. daily. 9. Amlodipine 5 mg p.o. daily. 10. Magnesium oxide 400 mg p.o. daily. 11. Dulera 200/5 two puffs inhalation b.i.d. 12. Prednisone 60 mg p.o. daily for 3 days, 40 mg p.o. daily for 3 days, 20 mg p.o. daily for 3 days and then stop. 13. DuoNeb inhalation q.6 hours as needed for wheezing while awake. 14. Incruse Ellipta 1 puff inhalation daily. 15. Insulin lispro sliding scale a.c. and h.s. New medications at discharge: 1. Amlodipine. 2. Insulin sliding scale. 3. Magnesium oxide. 4. Dulera. 5. Prednisone. 6. DuoNeb. Medications discontinued at discharge: 1. Insulin glargine 6 units subcutaneous in the morning, 4 units subcutaneous at bedtime. 2. NovoLog 2 to 4 units subcutaneous a.c. and h.s. HOSPITAL COURSE: This is a brief summary of the patient's presentation. For more details, please see the history and physical from this author on 11/20/19. In brief, the patient is a 64-year-old male with past medical history significant for the above, who presented to the emergency department with 2 days of worsening shortness of breath following a presumed significant aspiration event with large amount of coughing. The patient in the emergency room was found to be hypoxic and was started on oxygen. The patient was also found to be wheezing, was given steroids and nebulizers and was found to have an infiltrate on chest x-ray, was started on community-acquired pneumonia antibiotics with ceftriaxone and doxycycline. The patient was brought into the hospital. The patient had a consultation with Speech Therapy, which showed oropharyngeal dysphagia on the fluoroscopic swallow evaluation with nectar thick liquids, which was previously his recommended consistency, though this was not likely being followed at home. The patient was also recommended to be on pureed solids, which also he had not been following. The patient had slow improvement with his breathing with the above therapies; however, there was some concern that the patient continues to aspirate. The patient's oxygen was attempted to be able to be weaned for several days. The patient was able to be weaned down to 1 L of oxygen at rest and 2 L with ambulation, keeping his oxygen greater than 90. The patient finished a 7 days of ceftriaxone and doxycycline while in the hospital. The patient had worsening wheezing in the latter part of his hospitalization and his prednisone was increased from 50 mg to 60 mg daily. The patient was stable for discharge on 11/27/19 with decision to continue on home oxygen for presumed progression of his COPD and damage from his multiple aspiration events; however, the patient was unable to go back to his psychiatric fpc based on his new dietary needs and his new oxygen requirement. The patient was given a referral on 11/27/19 and had a bed offer for 11/29/19 offered from [facility] for 1:30 p.m. PHYSICAL EXAM ON THE DAY OF DISCHARGE: General: The patient is a male, who appears stated age, sitting comfortably in the bed, in no acute distress. HEENT : Head is normocephalic, atraumatic. Sclerae anicteric. No conjunctival injection. Nasal mucosa moist. Oral mucosa moist. No pharyngeal erythema, discharge, or exudate. Most of the patient's left ear is surgically absent. Neck: Supple, nontender. No lymphadenopathy. No carotid bruits auscultated. No JVD. Cardiac: Regular rate and rhythm. No clicks, murmurs, gallops, or rubs. Pulses are 2+ in the bilateral dorsalis pedis, posterior tibialis, and radial areas. Respiratory: Clear to auscultation bilaterally. No wheezes, rales, or rhonchi. Good air exchange bilaterally. Slight expiratory wheezing heard throughout. No adventitious lung sounds. Improved from previous exam. Abdomen: Soft, nontender, nondistended. Bowel sounds present and normoactive in all 4 quadrants. No hepatosplenomegaly. No abdominal bruits auscultated. No hepatojugular reflux. Neuro: Cranial nerves II through XII intact. Alert and oriented x3. Psychiatric: Pleasant and cooperative. DISCHARGE PLAN BY PROBLEM: 1. Acute on chronic hypoxic respiratory failure due to chronic obstructive pulmonary disease exacerbation and aspiration pneumonia. The patient has completed 7 days of antibiotics and is currently on steroids and is improving greatly. These will be tapered over 9 days as above. Due to severity of the patient's chronic obstructive pulmonary disease exacerbation and his continued wheezing, the patient very likely will need chronic oxygen. The patient continues to smoke and he has been counseled on smoking cessation, but is currently precontemplative for this. The patient will be continued on inhalers as needed and chronic triple inhaler therapy as he has had 2 chronic obstructive pulmonary disease exacerbations in the last 3 months. The patient has completed antibiotics. The patient will have a pureed and honey thickened diet as much as he can tolerate. 2. Oropharyngeal dysphagia. This is of unclear etiology. The patient was seen by Speech Therapy and should continue with speech therapy while at rehab and thereafter with an attempt to have the least restrictive diet possible. 3. Diabetes mellitus type 2. The patient has been under good control with only sliding scale insulin and metformin while in the hospital even while on steroids. The patient's long acting insulin has been stopped at this time. Additional oral antihyperglycemic medications should be considered in lieu of his insulin sliding scale after he is off of steroids. 4. Hypertension. The patient has been hypertensive while inpatient. The patient was started on amlodipine, this will be continued at discharge. CONDITION: Stable. DISPOSITION: [facility]. TIME SPENT: Approximately 60 minutes was spent on the discharge of this patient , 30 of which was spent [id number] with the patient obtaining history and physical and discussing treatment plan. CASSIDY PACE [id number]/CPS #: [id number] JENNIFER
[2019-11-28] MEDS: Enoxaparin(*) 40 MG/0.4 ML SYR SUBCUT SCH (22:45)
[2019-11-29] MEDS: Albuterol/Ipratropium NEB.SOL* Albuterol 2.5 MG/Ipratropium 0.5 MG 3 ML INH SCH ×3 (01:59→09:04)
[2019-11-29] MEDS: guaiFENesin 100 mg/5 ml LIQ unit dose cup PO SCH ×2 (05:40→13:08)
[2019-11-29] MEDS: Insulin LISPRO* 1 UNITS UNIT SUBCUT SCH ×2 (07:35→13:08)
[2019-11-29] MEDS: SPIRIVA Respimat* (tiotropium) 2.5 mcg/inh Inhaler INH SCH (09:15)
[2019-11-29] MEDS: Mometasone/Formoter 200/5 MDI INH SCH (09:16)
[2019-11-29] MEDS: Magnesium Oxide TAB* 400 MG PO SCH (09:30)
[2019-11-29] MEDS: Escitalopram * 10 MG TAB PO SCH (09:30)
[2019-11-29] MEDS: Lisinopril TAB* 10 MG PO SCH (09:31)
[2019-11-29] MEDS: metFORMIN* 1,000 MG TAB PO SCH (09:31)
[2019-11-29] MEDS: Haloperidol TAB* 10 MG PO SCH (09:32)
[2019-11-29] MEDS: amLODIPine TAB* 5 MG PO SCH (09:32)
[2019-11-29] MEDS: Divalproex Sprinkle CAP* 125 MG PO SCH (09:49)
[2019-11-29 09:52] VITALS: BP 144/48
== END 2019-11-29 13:40 | DRG 871 ==
LOC: ED 19:43 → MEDTELE 22:10
PROVIDERS: ADMIT Hospitalist; ATTEND Internal Medicine
DX: A41.9 Sepsis, unspecified organism (principal); J69.0 Pneumonitis due to inhalation of food and vomit; J96.21 Acute and chronic respiratory failure with hypoxia; J45.901 Unspecified asthma with (acute) exacerbation; J44.1 Chronic obstructive pulmonary disease with (acute) exacerbation; I10 Essential (primary) hypertension; F25.0 Schizoaffective disorder, bipolar type; E78.5 Hyperlipidemia, unspecified; F17.210 Nicotine dependence, cigarettes, uncomplicated; F41.9 Anxiety disorder, unspecified; F32.9 Major depressive disorder, single episode, unspecified; E11.649 Type 2 diabetes mellitus with hypoglycemia without coma; S81.019A Laceration without foreign body, unspecified knee, initial encounter; R13.13 Dysphagia, pharyngeal phase; L30.9 Dermatitis, unspecified; Z28.21 Immunization not carried out because of patient refusal; Z85.9 Personal history of malignant neoplasm, unspecified; Z79.899 Other long term (current) drug therapy; Z79.51 Long term (current) use of inhaled steroids; Z88.0 Allergy status to penicillin; Z88.8 Allergy status to other drugs, medicaments and biological substances; Z91.010 Allergy to peanuts; Z79.4 Long term (current) use of insulin
CPT/HCPCS: 36415; 71045; 74230; 80048; 80053; 81003; 81015; 82607; 82746; 82947; 83036; 83605; 83735; 83880; 84484; 85025; 85610; 87040; 87070; 87077; 87086; 87205; 87899; 93005; 94640; 94667; 94668; 96360; 99284; A9270-GY; J0456; J0696; J0744; J1650; J2920; J3475; J3535; J7512

== ENCOUNTER 2021-02-09 16:31 | Inpatient (IN) ==
[2021-02-09 22:19] LABS: Hematocrit 39 % (42-52); Hemoglobin 13.2 g/dL (14.0-18.0); Mean Corpuscular HGB Conc 34 g/dL (31-36); Mean Corpuscular Hemoglobin 31 pg (27-31); Mean Corpuscular Volume 91 fL (80-94); Mean Platelet Volume 7.6 fL (7.4-10.4); Platelet Count 299 10^3/uL (150-450); Red Blood Count 4.31 10^6 /uL (4.18-5.48); Red Cell Distribution Width 14 % (10-15); White Blood Count 15.2 10^3/uL (3.5-10.8)
[2021-02-09 22:24] LABS: INR 1.05 (0.82-1.09)
[2021-02-09 22:35] LABS: Alcohol, S < 10 mg/dL (<10); Salicylate < 2.50 mg/dL (<30)
[2021-02-09 22:38] LABS: ALT 36 U/L (7-52); AST 36 U/L (13-39); Albumin/Globulin Ratio 1.3 (1-3); Alkaline Phosphatase 50 U/L (34-104); Anion Gap 11 mmol/L (2-11); Blood Urea Nitrogen 85 mg/dL (6-24); CO2 Carbon Dioxide 22 mmol/L (22-32); Chloride 106 mmol/L (101-111); Creatine Kinase 1029 U/L (10-223); EGFR African American 25.8 (>60); EGFR Non-African American 21.3 (>60); Glucose 200 mg/dL (70-100); Magnesium 1.9 mg/dL (1.9-2.7); Potassium 4.5 mmol/L (3.5-5.0); Sodium 139 mmol/L (135-145)
[2021-02-09 22:44] LABS: Acetaminophen < 15 mcg/mL
[2021-02-09 22:49] LABS: TSH Ultra Thyroid Stim Horm 0.38 mcIU/mL (0.34-5.60)
[2021-02-09 23:11] LABS: Troponin I 0.04 ng/mL (<0.03)
[2021-02-10] MEDS ORDERED: NS 0.9% 1000 ml BAG 1,000 ML IV ONE (00:10)
[2021-02-10] MEDS ORDERED: Lorazepam PYXIS KEY PRN (00:16)
[2021-02-10] MEDS ORDERED: LORazepam 2 mg VIAL 1 ml IV PUSH ONE (00:16)
[2021-02-10 01:52] LABS: ABS Basophils 0.1 10^3/ul (0-0.2); ABS Eosinophils 0.1 10^3/ul (0-0.6); ABS Lymphocytes 1.9 10^3/ul (1.0-4.8); ABS Monocytes 1.6 10^3/ul (0-0.8); ABS Neutrophils 11.5 10^3/ul (1.5-7.7); Eosinophil % 0.8 %; Lymphocyte % 12.4 %
[2021-02-10] MEDS ORDERED: Lactated Ringers 1000 ml BAG 1,000 ML IV SCH ×2 (02:00→11:03)
[2021-02-10] MEDS: Enoxaparin 30 MG/0.3 ML SYR SUBCUT SCH ×2 (02:05→22:16)
[2021-02-10 03:05] LABS: C Reactive Protein 21.53 mg/L (<8.01)
[2021-02-10] MEDS ORDERED: Albuterol/Ipratropium NEB.SOL (2.5/0.5 MG) 3 ML NEB.SOLN INH PRN (03:23)
[2021-02-10] MEDS ORDERED: Dextrose 50% Syringe 50 ml 25 GM/50 ML SYRINGE IV PUSH PRN (03:24)
[2021-02-10 06:33] LABS: ABS Basophils 0.1 10^3/ul (0-0.2); ABS Eosinophils 0.3 10^3/ul (0-0.6); ABS Lymphocytes 1.8 10^3/ul (1.0-4.8); Eosinophil % 2.8 %; Hematocrit 40 % (42-52); Hemoglobin 13.2 g/dL (14.0-18.0); Lymphocyte % 14.9 %; Mean Corpuscular HGB Conc 33 g/dL (31-36); Mean Corpuscular Hemoglobin 30 pg (27-31); Mean Corpuscular Volume 92 fL (80-94); Mean Platelet Volume 7.5 fL (7.4-10.4); Platelet Count 247 10^3/uL (150-450); Red Blood Count 4.38 10^6 /uL (4.18-5.48); Red Cell Distribution Width 14 % (10-15); White Blood Count 12.2 10^3/uL (3.5-10.8)
[2021-02-10 06:49] LABS: Anion Gap 8 mmol/L (2-11); Blood Urea Nitrogen 73 mg/dL (6-24); CO2 Carbon Dioxide 22 mmol/L (22-32); Calcium 8.9 mg/dL (8.6-10.3); Chloride 111 mmol/L (101-111); Creatine Kinase 818 U/L (10-223); EGFR African American 34.2 (>60); EGFR Non-African American 28.3 (>60); Glucose 182 mg/dL (70-100); Potassium 4.7 mmol/L (3.5-5.0); Sodium 141 mmol/L (135-145)
[2021-02-10 07:06] LABS: Urine Appearance Clear; Urine Bilirubin Negative (Negative); Urine Blood 1+ (Negative); Urine Color Straw; Urine Glucose Negative (Negative); Urine Ketones Trace (Negative); Urine Nitrite Negative (Negative); Urine Protein Negative (Negative); Urine Urobilinogen Negative (Negative)
[2021-02-10 07:09] LABS: Urine Bacteria Absent (Absent); Urine Red Blood Cell Trace(0-2/hpf) (Absent); Urine Squamous Epithelial Cell Present (Absent); Urine White Blood Cell Trace(0-5/hpf) (Absent)
[2021-02-10 07:28] LABS: Urine Benzodiazepine Screen None Detected (None Detect); Urine Cannabinoids Screen None Detected (None Detect); Urine Opiates Screen None Detected (None Detect)
[2021-02-10 08:59] LABS: Phosphorus 4.9 mg/dL (2.5-5.0)
[2021-02-10] MEDS ORDERED: Umeclidinium 62.5 MDI(NF) MDI INH SCH (09:00)
[2021-02-10] MEDS: Mometasone/Formoter 200/5 MDI INH SCH ×2 (09:56→20:21)
[2021-02-10 15:42] LABS: Troponin I 0.04 ng/mL (<0.03)
[2021-02-11] MEDS: Albuterol HFA INHALER 8 gm MDI INH PRN (05:08)
[2021-02-11] MEDS ORDERED: Lorazepam PYXIS KEY PRN ×3 (07:30→11:12)
[2021-02-11] MEDS ORDERED: LORazepam 2 mg VIAL 1 ml IV PUSH PRN (07:30)
[2021-02-11] MEDS: Mometasone/Formoter 200/5 MDI INH SCH ×2 (08:09→21:06)
[2021-02-11] MEDS: SPIRIVA Respimat (tiotropium) 2.5 mcg/inh Inhaler INH SCH (08:09)
[2021-02-11] MEDS: Insulin GLARGINE 100 un/ml 10 ml VIAL SUBCUT SCH (09:07)
[2021-02-11] MEDS ORDERED: Haloperidol 5 mg/ml SDV IV/IM 5 MG/ML AMP IV SLOW PU PRN (09:29)
[2021-02-11 11:07] LABS: ABS Basophils 0.1 10^3/ul (0-0.2); ABS Eosinophils 0.2 10^3/ul (0-0.6); ABS Lymphocytes 1.5 10^3/ul (1.0-4.8); ABS Monocytes 1.2 10^3/ul (0-0.8); ABS Neutrophils 10.1 10^3/ul (1.5-7.7); Eosinophil % 1.4 %; Hematocrit 37 % (42-52); Hemoglobin 12.2 g/dL (14.0-18.0); Lymphocyte % 11.4 %; Mean Corpuscular HGB Conc 33 g/dL (31-36); Mean Corpuscular Hemoglobin 30 pg (27-31); Mean Corpuscular Volume 91 fL (80-94); Mean Platelet Volume 7.5 fL (7.4-10.4); Platelet Count 273 10^3/uL (150-450); Red Blood Count 4.09 10^6 /uL (4.18-5.48); Red Cell Distribution Width 14 % (10-15); White Blood Count 13.1 10^3/uL (3.5-10.8)
[2021-02-11] MEDS ORDERED: LORazepam 2 mg VIAL 1 ml IV PUSH ONE ×2 (11:10→11:12)
[2021-02-11 11:32] LABS: Calcium 8.9 mg/dL (8.6-10.3); EGFR African American 46.3 (>60); EGFR Non-African American 38.3 (>60); Magnesium 1.5 mg/dL (1.9-2.7); Potassium 4.7 mmol/L (3.5-5.0)
[2021-02-11] MEDS ORDERED: Lactated Ringers 500 ml BAG 500 ML IV ONE (11:39)
[2021-02-11] MEDS ORDERED: Magnesium Sulfate 2 gm BAG 2 GM/50 ML BAG IVPB ONE (11:40)
[2021-02-11] MEDS: Enoxaparin 30 MG/0.3 ML SYR SUBCUT SCH (21:08)
[2021-02-12 08:27] LABS: ABS Basophils 0.1 10^3/ul (0-0.2); ABS Eosinophils 0.4 10^3/ul (0-0.6); ABS Lymphocytes 1.6 10^3/ul (1.0-4.8); Eosinophil % 3.8 %; Hematocrit 39 % (42-52); Lymphocyte % 15.8 %; Mean Corpuscular HGB Conc 34 g/dL (31-36); Mean Corpuscular Hemoglobin 31 pg (27-31); Mean Corpuscular Volume 91 fL (80-94); Mean Platelet Volume 7.5 fL (7.4-10.4); Platelet Count 313 10^3/uL (150-450); Red Blood Count 4.26 10^6 /uL (4.18-5.48); Red Cell Distribution Width 14 % (10-15); White Blood Count 10.1 10^3/uL (3.5-10.8)
[2021-02-12 08:44] LABS: Calcium 9.5 mg/dL (8.6-10.3); EGFR African American 55.1 (>60); EGFR Non-African American 45.5 (>60); Magnesium 1.5 mg/dL (1.9-2.7)
[2021-02-12] MEDS: Insulin GLARGINE 100 un/ml 10 ml VIAL SUBCUT SCH (09:28)
[2021-02-12] MEDS: Mometasone/Formoter 200/5 MDI INH SCH ×2 (09:30→19:50)
[2021-02-12] MEDS: SPIRIVA Respimat (tiotropium) 2.5 mcg/inh Inhaler INH SCH (09:31)
[2021-02-12] MEDS ORDERED: Magnesium Sulfate 2 gm BAG 2 GM/50 ML BAG IVPB ONE (10:00)
[2021-02-13] MEDS: Mometasone/Formoter 200/5 MDI INH SCH ×2 (08:40→21:44)
[2021-02-13] MEDS: Insulin GLARGINE 100 un/ml 10 ml VIAL SUBCUT SCH (08:40)
[2021-02-13] MEDS: SPIRIVA Respimat (tiotropium) 2.5 mcg/inh Inhaler INH SCH (08:41)
[2021-02-14 07:26] LABS: ABS Basophils 0.1 10^3/ul (0-0.2); ABS Eosinophils 0.6 10^3/ul (0-0.6); ABS Lymphocytes 1.5 10^3/ul (1.0-4.8); ABS Monocytes 1.1 10^3/ul (0-0.8); ABS Neutrophils 9.2 10^3/ul (1.5-7.7); Eosinophil % 4.5 %; Hematocrit 39 % (42-52); Mean Corpuscular HGB Conc 34 g/dL (31-36); Mean Corpuscular Hemoglobin 30 pg (27-31); Mean Corpuscular Volume 90 fL (80-94); Mean Platelet Volume 7.2 fL (7.4-10.4); Platelet Count 329 10^3/uL (150-450); Red Blood Count 4.29 10^6 /uL (4.18-5.48); Red Cell Distribution Width 14 % (10-15); White Blood Count 12.4 10^3/uL (3.5-10.8)
[2021-02-14 07:38] LABS: Calcium 9.6 mg/dL (8.6-10.3); EGFR African American 44.1 (>60); EGFR Non-African American 36.4 (>60); Magnesium 2.4 mg/dL (1.9-2.7); Potassium 4.7 mmol/L (3.5-5.0)
[2021-02-14] MEDS: Insulin GLARGINE 100 un/ml 10 ml VIAL SUBCUT SCH (08:05)
[2021-02-14] MEDS: Mometasone/Formoter 200/5 MDI INH SCH ×2 (08:37→21:32)
[2021-02-14] MEDS: SPIRIVA Respimat (tiotropium) 2.5 mcg/inh Inhaler INH SCH (08:37)
[2021-02-14] MEDS: Albuterol HFA INHALER 8 gm MDI INH PRN (15:54)
[2021-02-15] MEDS: Mometasone/Formoter 200/5 MDI INH SCH ×2 (10:20→22:53)
[2021-02-15] MEDS: SPIRIVA Respimat (tiotropium) 2.5 mcg/inh Inhaler INH SCH (10:20)
[2021-02-15 10:27] LABS: ABS Basophils 0.1 10^3/ul (0-0.2); ABS Eosinophils 0.3 10^3/ul (0-0.6); ABS Lymphocytes 1.2 10^3/ul (1.0-4.8); Eosinophil % 2.3 %; Hematocrit 42 % (42-52); Hemoglobin 13.8 g/dL (14.0-18.0); Lymphocyte % 8.9 %; Mean Corpuscular HGB Conc 33 g/dL (31-36); Mean Corpuscular Hemoglobin 30 pg (27-31); Mean Corpuscular Volume 92 fL (80-94); Mean Platelet Volume 7.4 fL (7.4-10.4); Platelet Count 373 10^3/uL (150-450); Red Blood Count 4.57 10^6 /uL (4.18-5.48); Red Cell Distribution Width 14 % (10-15); White Blood Count 13.6 10^3/uL (3.5-10.8)
[2021-02-15 10:52] LABS: Calcium 9.6 mg/dL (8.6-10.3); EGFR Non-African American 38.1 (>60)
[2021-02-15 10:55] LABS: Potassium 5.3 mmol/L (3.5-5.0)
[2021-02-15 12:04] LABS: Urine Creatinine Concentration 65.72 mg/dL
[2021-02-15] MEDS ORDERED: Sodium Polystyrene ORAL.SUSP 15 GM/60 ML BTL PO ONE (18:26)
[2021-02-15] MEDS ORDERED: Lorazepam PYXIS KEY PRN (22:52)
[2021-02-15] MEDS: Carbamide Peroxide 6.5% OTIC 15 ML BTL BOTH EARS SCH (22:53)
[2021-02-16] MEDS: LORazepam 2 mg VIAL 1 ml IV PUSH PRN ×2 (04:13→20:10)
[2021-02-16 04:55] LABS: ABS Basophils 0.1 10^3/ul (0-0.2); ABS Eosinophils 0.8 10^3/ul (0-0.6); ABS Lymphocytes 2.4 10^3/ul (1.0-4.8); ABS Monocytes 1.3 10^3/ul (0-0.8); Eosinophil % 4.6 %; Hematocrit 38 % (42-52); Hemoglobin 12.7 g/dL (14.0-18.0); Lymphocyte % 14.4 %; Mean Corpuscular HGB Conc 33 g/dL (31-36); Mean Corpuscular Hemoglobin 30 pg (27-31); Mean Corpuscular Volume 90 fL (80-94); Mean Platelet Volume 7.6 fL (7.4-10.4); Platelet Count 326 10^3/uL (150-450); Red Blood Count 4.23 10^6 /uL (4.18-5.48); Red Cell Distribution Width 14 % (10-15); White Blood Count 16.6 10^3/uL (3.5-10.8)
[2021-02-16 05:16] LABS: C Reactive Protein 58.67 mg/L (<8.01); EGFR Non-African American 42.9 (>60); Potassium 4.8 mmol/L (3.5-5.0)
[2021-02-16] MEDS: SPIRIVA Respimat (tiotropium) 2.5 mcg/inh Inhaler INH SCH (08:44)
[2021-02-16] MEDS: Mometasone/Formoter 200/5 MDI INH SCH ×2 (08:47→20:44)
[2021-02-16 11:04] LABS: Urine Appearance Clear; Urine Bilirubin Negative (Negative); Urine Blood Negative (Negative); Urine Color Straw; Urine Glucose Negative (Negative); Urine Ketones Trace (Negative); Urine Nitrite Negative (Negative); Urine Protein Negative (Negative); Urine Specific Gravity 1.008 (1.002-1.030); Urine Urobilinogen Negative (Negative)
[2021-02-16] MEDS: Carbamide Peroxide 6.5% OTIC 15 ML BTL BOTH EARS SCH ×2 (12:45→20:21)
[2021-02-16] MEDS ORDERED: Lactated Ringers 1000 ml BAG 1,000 ML IV SCH (14:00)
[2021-02-16] MEDS: Lactated Ringers 1000 ml BAG 1,000 ML IV SCH (20:20)
[2021-02-17 05:56] LABS: Hematocrit 40 % (42-52); Hemoglobin 13.3 g/dL (14.0-18.0); Mean Corpuscular HGB Conc 34 g/dL (31-36); Mean Corpuscular Hemoglobin 30 pg (27-31); Mean Corpuscular Volume 91 fL (80-94); Mean Platelet Volume 7.6 fL (7.4-10.4); Platelet Count 345 10^3/uL (150-450); Red Blood Count 4.37 10^6 /uL (4.18-5.48); Red Cell Distribution Width 14 % (10-15); White Blood Count 10.8 10^3/uL (3.5-10.8)
[2021-02-17 06:22] LABS: Calcium 9.3 mg/dL (8.6-10.3); Potassium 4.8 mmol/L (3.5-5.0)
[2021-02-17] MEDS: Mometasone/Formoter 200/5 MDI INH SCH ×2 (07:53→19:43)
[2021-02-17] MEDS: SPIRIVA Respimat (tiotropium) 2.5 mcg/inh Inhaler INH SCH (07:58)
[2021-02-17 08:13] LABS: C Reactive Protein 46.23 mg/L (<8.01)
[2021-02-17] MEDS: Carbamide Peroxide 6.5% OTIC 15 ML BTL BOTH EARS SCH ×2 (09:21→20:32)
[2021-02-17] MEDS: Lactated Ringers 1000 ml BAG 1,000 ML IV SCH (10:55)
[2021-02-17] MEDS: SITAGLIPTIN 100 MG PO SCH (14:34)
[2021-02-17] MEDS: LORazepam 2 mg VIAL 1 ml IV PUSH PRN ×2 (16:12→22:09)
[2021-02-18 06:05] LABS: EGFR African American 70.6 (>60); EGFR Non-African American 58.3 (>60); Potassium 4.6 mmol/L (3.5-5.0)
[2021-02-18] MEDS ORDERED: LORazepam 2 mg VIAL 1 ml IM ONE (06:06)
[2021-02-18] MEDS ORDERED: Lorazepam PYXIS KEY PRN ×2 (06:06→18:39)
[2021-02-18 06:11] LABS: Hematocrit 45 % (42-52); Hemoglobin 14.8 g/dL (14.0-18.0); Mean Corpuscular HGB Conc 33 g/dL (31-36); Mean Corpuscular Hemoglobin 30 pg (27-31); Mean Corpuscular Volume 92 fL (80-94); Mean Platelet Volume 7.6 fL (7.4-10.4); Platelet Count 311 10^3/uL (150-450); Red Blood Count 4.86 10^6 /uL (4.18-5.48); Red Cell Distribution Width 14 % (10-15); White Blood Count 9.8 10^3/uL (3.5-10.8)
[2021-02-18] MEDS ORDERED: LORazepam 2 mg VIAL 1 ml ONE (06:11)
[2021-02-18] MEDS: Lactated Ringers 1000 ml BAG 1,000 ML IV SCH (06:57)
[2021-02-18] MEDS: Mometasone/Formoter 200/5 MDI INH SCH ×2 (07:52→19:49)
[2021-02-18] MEDS: SPIRIVA Respimat (tiotropium) 2.5 mcg/inh Inhaler INH SCH (07:52)
[2021-02-18] MEDS: SITAGLIPTIN 100 MG PO SCH (09:29)
[2021-02-18] MEDS: Carbamide Peroxide 6.5% OTIC 15 ML BTL BOTH EARS SCH ×2 (09:32→23:03)
[2021-02-18] MEDS: LORazepam 2 mg VIAL 1 ml IV PUSH PRN (18:01)
[2021-02-18] MEDS ORDERED: LORazepam 2 mg VIAL 1 ml IV PUSH ONE (18:39)
[2021-02-19 06:21] LABS: Blood Urea Nitrogen 21 mg/dL (6-24); CO2 Carbon Dioxide 29 mmol/L (22-32); Calcium 9.9 mg/dL (8.6-10.3); EGFR African American 61.9 (>60); EGFR Non-African American 51.2 (>60); Glucose 195 mg/dL (70-100)
[2021-02-19 06:25] LABS: Chloride 112 mmol/L (101-111); Sodium 149 mmol/L (135-145)
[2021-02-19 06:27] LABS: Anion Gap 8 mmol/L (2-11)
[2021-02-19 06:57] LABS: Hematocrit 43 % (42-52); Hemoglobin 13.8 g/dL (14.0-18.0); Mean Corpuscular HGB Conc 32 g/dL (31-36); Mean Corpuscular Hemoglobin 30 pg (27-31); Mean Corpuscular Volume 92 fL (80-94); Red Blood Count 4.67 10^6 /uL (4.18-5.48); Red Cell Distribution Width 14 % (10-15)
[2021-02-19 06:58] LABS: White Blood Count 14.9 10^3/uL (3.5-10.8)
[2021-02-19 07:00] LABS: Platelet Count Platelets clumped. 10^3/uL (150-450)
[2021-02-19] MEDS ORDERED: NS 0.45% 1000 ml BAG 1,000 ML IV SCH ×2 (07:00→07:04)
[2021-02-19] MEDS: CMCS: SitaGLIPtin 25mg TAB (NF) 25 MG TAB PO SCH (08:14)
[2021-02-19] MEDS: Carbamide Peroxide 6.5% OTIC 15 ML BTL BOTH EARS SCH ×2 (08:26→21:40)
[2021-02-19] MEDS: SPIRIVA Respimat (tiotropium) 2.5 mcg/inh Inhaler INH SCH (09:19)
[2021-02-19] MEDS: Mometasone/Formoter 200/5 MDI INH SCH ×2 (09:20→20:35)
[2021-02-19 17:28] LABS: Calcium 9.6 mg/dL (8.6-10.3); EGFR African American 54.7 (>60); EGFR Non-African American 45.2 (>60)
[2021-02-19 17:31] LABS: Potassium 5.2 mmol/L (3.5-5.0)
[2021-02-19] MEDS ORDERED: Sodium Polystyrene ORAL.SUSP 15 GM/60 ML BTL PO ONE (17:58)
[2021-02-19] MEDS: LORazepam 2 mg VIAL 1 ml IV PUSH PRN (23:18)
[2021-02-19 23:28] LABS: Urine Appearance Clear; Urine Bilirubin Negative (Negative); Urine Blood Negative (Negative); Urine Color Yellow; Urine Glucose 1+(50 mg/dL) (Negative); Urine Ketones Negative (Negative); Urine Nitrite Negative (Negative); Urine Protein 1+(30 mg/dL) (Negative); Urine Urobilinogen Negative (Negative)
[2021-02-19 23:38] LABS: Urine Bacteria Absent (Absent); Urine Red Blood Cell Absent (Absent); Urine Squamous Epithelial Cell Present (Absent); Urine White Blood Cell Trace(0-5/hpf) (Absent)
[2021-02-20] MEDS: LORazepam 2 mg VIAL 1 ml IV PUSH PRN ×3 (03:20→19:18)
[2021-02-20] MEDS: CMCS: SitaGLIPtin 25mg TAB (NF) 25 MG TAB PO SCH (08:08)
[2021-02-20] MEDS: Carbamide Peroxide 6.5% OTIC 15 ML BTL BOTH EARS SCH ×2 (08:48→21:03)
[2021-02-20 08:53] LABS: ABS Eosinophils 0.6 10^3/ul (0-0.6); ABS Monocytes 0.9 10^3/ul (0-0.8); ABS Neutrophils 6.2 10^3/ul (1.5-7.7); Eosinophil % 5.8 %; Hematocrit 41 % (42-52); Hemoglobin 13.7 g/dL (14.0-18.0); Lymphocyte % 20.1 %; Mean Corpuscular HGB Conc 34 g/dL (31-36); Mean Corpuscular Hemoglobin 31 pg (27-31); Mean Corpuscular Volume 92 fL (80-94); Mean Platelet Volume 7.4 fL (7.4-10.4); Platelet Count 331 10^3/uL (150-450); Red Cell Distribution Width 14 % (10-15); White Blood Count 9.8 10^3/uL (3.5-10.8)
[2021-02-20 09:10] LABS: Calcium 9.5 mg/dL (8.6-10.3); EGFR African American 54.7 (>60); EGFR Non-African American 45.2 (>60); Potassium 4.9 mmol/L (3.5-5.0)
[2021-02-20] MEDS: Mometasone/Formoter 200/5 MDI INH SCH ×2 (11:18→20:30)
[2021-02-20] MEDS: SPIRIVA Respimat (tiotropium) 2.5 mcg/inh Inhaler INH SCH (11:19)
[2021-02-20] MEDS ORDERED: NS 0.45% 1000 ml BAG 1,000 ML IV SCH (12:00)
[2021-02-20 20:09] LABS: INR 1.03 (0.82-1.09)
[2021-02-20 20:25] LABS: Calcium 9.6 mg/dL (8.6-10.3); Potassium 4.5 mmol/L (3.5-5.0)
[2021-02-20] MEDS: Albuterol HFA INHALER 8 gm MDI INH PRN (20:28)
[2021-02-20 20:31] LABS: EGFR African American 59.5 (>60); EGFR Non-African American 49.2 (>60)
[2021-02-21] MEDS: LORazepam 2 mg VIAL 1 ml IV PUSH PRN ×4 (02:34→21:08)
[2021-02-21] MEDS ORDERED: Haloperidol 5 mg/ml SDV IV/IM 5 MG/ML AMP IV SLOW PU ONE (02:50)
[2021-02-21 05:20] LABS: Calcium 9.8 mg/dL (8.6-10.3); EGFR African American 59.5 (>60); EGFR Non-African American 49.2 (>60); Potassium 4.6 mmol/L (3.5-5.0)
[2021-02-21 08:15] LABS: Magnesium 2.2 mg/dL (1.9-2.7)
[2021-02-21] MEDS: CMCS: SitaGLIPtin 25mg TAB (NF) 25 MG TAB PO SCH (08:56)
[2021-02-21] MEDS: Carbamide Peroxide 6.5% OTIC 15 ML BTL BOTH EARS SCH ×2 (08:56→19:33)
[2021-02-21] MEDS: Mometasone/Formoter 200/5 MDI INH SCH ×2 (09:42→19:42)
[2021-02-21] MEDS: SPIRIVA Respimat (tiotropium) 2.5 mcg/inh Inhaler INH SCH (09:42)
[2021-02-21] MEDS ORDERED: STERILE WATER FOR INJECTION IVPB SCH (13:30)
[2021-02-21] MEDS ORDERED: SODIUM CHLORIDE IVPB SCH (13:30)
[2021-02-21 17:19] LABS: Calcium 9.6 mg/dL (8.6-10.3); EGFR African American 56.3 (>60); EGFR Non-African American 46.5 (>60); Potassium 4.5 mmol/L (3.5-5.0)
[2021-02-21] MEDS ORDERED: SODIUM CHLORIDE IVPB ONE (19:30)
[2021-02-21] MEDS ORDERED: STERILE WATER FOR INJECTION IVPB ONE (19:30)
[2021-02-22] MEDS: LORazepam 2 mg VIAL 1 ml IV PUSH PRN ×5 (01:32→19:44)
[2021-02-22 05:54] LABS: Calcium 9.4 mg/dL (8.6-10.3); EGFR African American 66.9 (>60); EGFR Non-African American 55.3 (>60); Potassium 4.8 mmol/L (3.5-5.0)
[2021-02-22] MEDS: CMCS: SitaGLIPtin 25mg TAB (NF) 25 MG TAB PO SCH (08:09)
[2021-02-22] MEDS: Carbamide Peroxide 6.5% OTIC 15 ML BTL BOTH EARS SCH ×2 (08:09→20:31)
[2021-02-22] MEDS: SPIRIVA Respimat (tiotropium) 2.5 mcg/inh Inhaler INH SCH (08:34)
[2021-02-22] MEDS: Mometasone/Formoter 200/5 MDI INH SCH ×2 (08:34→19:04)
[2021-02-22] MEDS ORDERED: STERILE WATER FOR INJECTION IV SCH (11:00)
[2021-02-22] MEDS ORDERED: SODIUM CHLORIDE IV SCH (11:00)
[2021-02-22] MEDS: Valproic Acid IV 500 MG in NS 0.9% 100 ML IVPB SCH ×2 (15:50→22:58)
[2021-02-22] MEDS: Diazepam INJ CARPUJECT 5 MG/ML IV SCH (20:20)
[2021-02-22 23:31] LABS: Calcium 9.7 mg/dL (8.6-10.3); EGFR African American 61.4 (>60); EGFR Non-African American 50.8 (>60); Potassium 4.5 mmol/L (3.5-5.0)
[2021-02-22] MEDS ORDERED: hydrALAZINE 20 mg/ml 1 ML Vial IV IV SLOW PU PRN (23:56)
[2021-02-23] MEDS ORDERED: D5W 1000 ml BAG 1,000 ML IV SCH
[2021-02-23] MEDS: LORazepam 2 mg VIAL 1 ml IV PUSH PRN ×5 (01:19→20:32)
[2021-02-23] MEDS: STERILE WATER FOR INJECTION IVPB SCH (05:39)
[2021-02-23] MEDS: SODIUM CHLORIDE IVPB SCH (05:39)
[2021-02-23 05:46] LABS: ABS Basophils 0.1 10^3/ul (0-0.2); ABS Eosinophils 0.4 10^3/ul (0-0.6); ABS Lymphocytes 1.8 10^3/ul (1.0-4.8); ABS Monocytes 1.1 10^3/ul (0-0.8); ABS Neutrophils 8.4 10^3/ul (1.5-7.7); Eosinophil % 3.6 %; Hematocrit 39 % (42-52); Lymphocyte % 15.6 %; Mean Corpuscular HGB Conc 33 g/dL (31-36); Mean Corpuscular Hemoglobin 30 pg (27-31); Mean Corpuscular Volume 92 fL (80-94); Mean Platelet Volume 7.6 fL (7.4-10.4); Platelet Count 264 10^3/uL (150-450); Red Blood Count 4.29 10^6 /uL (4.18-5.48); Red Cell Distribution Width 14 % (10-15); White Blood Count 11.8 10^3/uL (3.5-10.8)
[2021-02-23 06:00] LABS: C Reactive Protein 59.73 mg/L (<8.01); Calcium 9.6 mg/dL (8.6-10.3); EGFR African American 67.5 (>60); EGFR Non-African American 55.8 (>60); Potassium 4.2 mmol/L (3.5-5.0)
[2021-02-23] MEDS: Mometasone/Formoter 200/5 MDI INH SCH ×2 (07:58→20:04)
[2021-02-23] MEDS: SPIRIVA Respimat (tiotropium) 2.5 mcg/inh Inhaler INH SCH (07:58)
[2021-02-23] MEDS: Valproic Acid IV 500 MG in NS 0.9% 100 ML IVPB SCH ×2 (09:54→20:57)
[2021-02-23] MEDS: Carbamide Peroxide 6.5% OTIC 15 ML BTL BOTH EARS SCH ×2 (10:19→20:23)
[2021-02-23] MEDS: Diazepam INJ CARPUJECT 5 MG/ML IV SCH ×2 (10:34→20:31)
[2021-02-23] MEDS ORDERED: D5W 500 ml BAG 500 ML IV SCH (14:00)
[2021-02-23] MEDS ORDERED: Lorazepam PYXIS KEY PRN (23:45)
[2021-02-23] MEDS ORDERED: LORazepam 2 mg VIAL 1 ml IV PUSH ONE (23:45)
[2021-02-24] MEDS: D5W 500 ml BAG 500 ML IV SCH ×4 (01:41→21:37)
[2021-02-24] MEDS: LORazepam 2 mg VIAL 1 ml IV PUSH PRN ×2 (05:56→21:57)
[2021-02-24 06:57] LABS: Hematocrit 43 % (42-52); Hemoglobin 14.4 g/dL (14.0-18.0); Mean Corpuscular HGB Conc 33 g/dL (31-36); Mean Corpuscular Hemoglobin 30 pg (27-31); Mean Corpuscular Volume 91 fL (80-94); Mean Platelet Volume 7.6 fL (7.4-10.4); Platelet Count 296 10^3/uL (150-450); Red Blood Count 4.75 10^6 /uL (4.18-5.48); Red Cell Distribution Width 14 % (10-15)
[2021-02-24 07:17] LABS: C Reactive Protein 79.55 mg/L (<8.01); Calcium 9.6 mg/dL (8.6-10.3); EGFR African American 74.7 (>60); EGFR Non-African American 61.7 (>60); Magnesium 1.9 mg/dL (1.9-2.7)
[2021-02-24 07:38] LABS: ABS Basophils 0.1 10^3/ul (0-0.2); ABS Eosinophils 0.3 10^3/ul (0-0.6); ABS Lymphocytes 1.4 10^3/ul (1.0-4.8); ABS Monocytes 0.9 10^3/ul (0-0.8); ABS Neutrophils 7.4 10^3/ul (1.5-7.7); Eosinophil % 3.5 %; Lymphocyte % 13.6 %
[2021-02-24] MEDS: Carbamide Peroxide 6.5% OTIC 15 ML BTL BOTH EARS SCH ×2 (08:12→20:25)
[2021-02-24] MEDS: Diazepam INJ CARPUJECT 5 MG/ML IV SCH ×2 (08:55→20:39)
[2021-02-24] MEDS: Valproic Acid IV 500 MG in NS 0.9% 100 ML IVPB SCH ×2 (08:55→20:39)
[2021-02-24] MEDS: SPIRIVA Respimat (tiotropium) 2.5 mcg/inh Inhaler INH SCH (10:01)
[2021-02-24] MEDS: Mometasone/Formoter 200/5 MDI INH SCH ×2 (10:01→20:58)
[2021-02-24] MEDS ORDERED: Lorazepam PYXIS KEY PRN (22:24)
[2021-02-24] MEDS ORDERED: LORazepam 2 mg VIAL 1 ml IV PUSH ONE (22:24)
[2021-02-25] MEDS: STERILE WATER FOR INJECTION IVPB SCH (04:14)
[2021-02-25] MEDS: SODIUM CHLORIDE IVPB SCH (04:14)
[2021-02-25] MEDS: LORazepam 2 mg VIAL 1 ml IV PUSH PRN ×2 (04:35→15:16)
[2021-02-25 07:06] LABS: ABS Eosinophils 0.3 10^3/ul (0-0.6); ABS Lymphocytes 1.5 10^3/ul (1.0-4.8); ABS Neutrophils 7.3 10^3/ul (1.5-7.7); Eosinophil % 2.6 %; Hematocrit 38 % (42-52); Hemoglobin 12.7 g/dL (14.0-18.0); Lymphocyte % 14.5 %; Mean Corpuscular HGB Conc 34 g/dL (31-36); Mean Corpuscular Hemoglobin 31 pg (27-31); Mean Corpuscular Volume 91 fL (80-94); Platelet Count 248 10^3/uL (150-450); Red Blood Count 4.18 10^6 /uL (4.18-5.48); Red Cell Distribution Width 14 % (10-15)
[2021-02-25 07:31] LABS: Albumin 3.3 g/dL (3.2-5.2); C Reactive Protein 69.12 mg/L (<8.01); Calcium 9.1 mg/dL (8.6-10.3); EGFR African American 85.4 (>60); EGFR Non-African American 70.6 (>60); Globulin 3.2 g/dL (2-4); Potassium 3.6 mmol/L (3.5-5.0); Total Bilirubin 0.4 mg/dL (0.2-1.0); Total Protein 6.5 g/dL (6.4-8.9)
[2021-02-25] MEDS: Diazepam INJ CARPUJECT 5 MG/ML IV SCH ×2 (09:43→21:23)
[2021-02-25] MEDS: Valproic Acid IV 500 MG in NS 0.9% 100 ML IVPB SCH ×2 (09:52→21:29)
[2021-02-25] MEDS: Carbamide Peroxide 6.5% OTIC 15 ML BTL BOTH EARS SCH ×2 (09:53→21:29)
[2021-02-25] MEDS: Mometasone/Formoter 200/5 MDI INH SCH ×2 (10:19→19:48)
[2021-02-25] MEDS: SPIRIVA Respimat (tiotropium) 2.5 mcg/inh Inhaler INH SCH (10:19)
[2021-02-26] MEDS ORDERED: LORazepam 2 mg VIAL 1 ml IM ONE (03:17)
[2021-02-26] MEDS ORDERED: Lorazepam PYXIS KEY PRN (03:17)
[2021-02-26] MEDS: SPIRIVA Respimat (tiotropium) 2.5 mcg/inh Inhaler INH SCH (07:37)
[2021-02-26] MEDS: Mometasone/Formoter 200/5 MDI INH SCH ×2 (07:37→20:03)
[2021-02-26] MEDS: Diazepam INJ CARPUJECT 5 MG/ML IV SCH ×2 (11:16→21:07)
[2021-02-26] MEDS: Valproic Acid IV 500 MG in NS 0.9% 100 ML IVPB SCH ×2 (11:18→21:07)
[2021-02-26] MEDS: Carbamide Peroxide 6.5% OTIC 15 ML BTL BOTH EARS SCH ×3 (11:28→21:06)
[2021-02-26] MEDS ORDERED: D5W 1000 ml BAG 1,000 ML IV SCH (12:00)
[2021-02-26] MEDS: LORazepam 2 mg VIAL 1 ml IV PUSH PRN (15:29)
[2021-02-26] MEDS ORDERED: Nystatin SUSPENSION 100,000 UNITS/ML UDC PO ONE (16:54)
[2021-02-27] MEDS: D5W 500 ml BAG 500 ML IV SCH (02:31)
[2021-02-27] MEDS: Mometasone/Formoter 200/5 MDI INH SCH ×2 (07:46→19:21)
[2021-02-27] MEDS: SPIRIVA Respimat (tiotropium) 2.5 mcg/inh Inhaler INH SCH (07:47)
[2021-02-27 08:13] LABS: Hematocrit 40 % (42-52); Hemoglobin 13.7 g/dL (14.0-18.0); Mean Corpuscular HGB Conc 34 g/dL (31-36); Mean Corpuscular Hemoglobin 31 pg (27-31); Mean Corpuscular Volume 91 fL (80-94); Mean Platelet Volume 8.6 fL (7.4-10.4); Platelet Count 243 10^3/uL (150-450); Red Blood Count 4.43 10^6 /uL (4.18-5.48); Red Cell Distribution Width 14 % (10-15); White Blood Count 20.7 10^3/uL (3.5-10.8)
[2021-02-27 08:44] LABS: C Reactive Protein 157.87 mg/L (<8.01); EGFR African American 63.5 (>60); EGFR Non-African American 52.5 (>60); Phosphorus 3.8 mg/dL (2.5-5.0)
[2021-02-27] MEDS: Diazepam INJ CARPUJECT 5 MG/ML IV SCH ×2 (11:00→20:45)
[2021-02-27] MEDS: Valproic Acid IV 500 MG in NS 0.9% 100 ML IVPB SCH (11:12)
[2021-02-27] MEDS: Carbamide Peroxide 6.5% OTIC 15 ML BTL BOTH EARS SCH ×2 (11:16→20:53)
[2021-02-27 18:29] VITALS: BP 121/50
[2021-02-27] MEDS: LORazepam 2 mg VIAL 1 ml IV PUSH PRN (23:50)
[2021-02-28] MEDS: LORazepam 2 mg VIAL 1 ml IV PUSH PRN ×3 (04:21→20:40)
[2021-02-28] MEDS: Mometasone/Formoter 200/5 MDI INH SCH ×2 (07:36→19:21)
[2021-02-28] MEDS: SPIRIVA Respimat (tiotropium) 2.5 mcg/inh Inhaler INH SCH (07:36)
[2021-02-28] MEDS: Diazepam INJ CARPUJECT 5 MG/ML IV SCH ×3 (10:03→21:46)
[2021-02-28] MEDS: Carbamide Peroxide 6.5% OTIC 15 ML BTL BOTH EARS SCH ×2 (10:12→21:46)
[2021-02-28] MEDS ORDERED: Morphine 2 MG/ML SYRINGE IV PRN ×2 (20:04→20:06)
[2021-02-28] MEDS: Morphine ORAL CONCENTRATE 5 MG/0.25 ML ORAL.SYRIN SL PRN (21:45)
[2021-03-01] MEDS: SPIRIVA Respimat (tiotropium) 2.5 mcg/inh Inhaler INH SCH (07:23)
[2021-03-01] MEDS: Mometasone/Formoter 200/5 MDI INH SCH ×2 (07:23→19:27)
[2021-03-01] MEDS: Morphine ORAL CONCENTRATE 5 MG/0.25 ML ORAL.SYRIN SL PRN ×4 (08:51→15:30)
[2021-03-01] MEDS: Carbamide Peroxide 6.5% OTIC 15 ML BTL BOTH EARS SCH ×2 (09:37→21:37)
[2021-03-01] MEDS: Diazepam INJ CARPUJECT 5 MG/ML IV SCH ×2 (09:37→21:37)
== END 2021-03-01 20:15 | disposition expired ==
LOC: ED 16:31 → EDHOLD 02-10 01:26 → MEDTELE 02-10 08:55 → BSU 02-11 12:19 → MEDTELE 02-15 23:12
PROVIDERS: ADMIT Internal Medicine; ATTEND Internal Medicine